=== PATIENT | female | born 1955 | race Caucasian/White ===

== ENCOUNTER 2017-11-28 12:59 | Emergency (ER) | payer MEDICAID ==
[~2017-11-28] VITALS: Ht 165.1 cm; Wt 65.8 kg
[~2017-11-28 12:59] MED LIST: ALPRAZOLAM1 MG ORAL; BISACODYL5 MG ORAL; CATAPRES0.1 MG ORAL; CITALOPRAM HBR40 M1 ORAL; COLCRYS0.6 M1 PO; DOCUSATE SODIU100 MG ORAL; FUROSEMIDE20 M1 ORAL; MINERAL OIL25 ML PO; MORPHINE SULFAT30 M4 PO; NEXIUM40 MG ORAL; NITROGLYCERIN0.4 MG SL; NORVASC5 MG ORAL
[2017-11-28] MEDS ORDERED: Sodium Chloride 500ML 500 ML IV ONE (13:49)
--- NOTE | 2017-11-28 13:51 | Emergency Room Report ---
History of Present Illness General Chief Complaint: Abdominal Pain Source: Medical Record Present Illness HPI Patient is a 62-year-old female who presented after increased right upper abdominal pain. Patient prior history of gallbladder disease and had prior cholecystectomy. She reports having prior stent placement. She reports having chronic pain secondary to Mediterranean fever. She denies any vomiting or diarrhea. She was noted to have some increased abdominal distention. The patient states she chronically takes pain medications which include oral morphine. Allergies: Coded Allergies: DIPHENHYDRAMINE (Verified Allergy, Severe, 05/19/15) GENERAL STIFFNESS Patient History Past Medical History: see triage record Reviewed Nursing Documentation: PMH: Agreed; PSxH: Agreed Nursing Documentation-PMH Hx Cardiac Problems: No Hx Hypertension: Yes Hx Cancer: No Hx Gastrointestinal Problems: Yes Hx Neurological Problems: No Review of Systems All Other Systems: negative except mentioned in HPI Physical Exam Vital Signs Date Time Temp Pulse Resp B/P (MAP) Pulse Ox O2 Delivery O2 Flow Rate FiO2 11/28/17 12:59 98.0 80 16 110/80 98 Room Air 98.1 Sp02 EP Interpretation: reviewed, normal General Appearance: no apparent distress, alert, GCS 15, thin, Chronically Ill Head: atraumatic ENT: normal ENT inspection, hearing grossly normal, normal voice Neck: normal inspection, full range of motion, supple, no bony tend Respiratory: normal inspection, lungs clear, normal breath sounds, no respiratory distress, no retraction, no wheezing Cardiovascular #1: regular rate, rhythm, no edema Gastrointestinal: normal inspection, normal bowel sounds, non tender, soft, no guarding, no hernia Genitourinary: no CVA tenderness Musculoskeletal: normal inspection, back normal, normal range of motion Neurologic: normal inspection, alert, oriented x3, responsive, retail performance specialist III-XII nml as tested, speech normal Psychiatric: normal inspection, judgement/insight normal, mood/affect normal, depressed affect Skin: normal inspection, normal color, no rash Medical Decision Making Diagnostic Impression: Primary Impression: Biliary stent migration Additional Impression: FMF (familial Mediterranean fever) ER Course Patient presented for abdominal pain. Differential diagnoses included ischemic bowel, appendicitis, perforated viscus, abdominal aortic aneurysm, inferior myocardial infarction, viral gastroenteritis. Because of complexity of patient' s case laboratory testing and imaging studies were ordered.The CT abdomen pelvis read by radiology showed slight malposition of biliary stent. The patient laboratory testing showed elevated alkaline phosphatase consistent with patient's abnormal biliary stent. There is no evidence of intrahepatic duct dilation on CT. The see CT report for complete details. Patient was discussed with Dr. Neumann who agreed to accept patient in transfer to [facility] due to capitated facility The patient was given pain medications with some improvement in her symptoms. Labs Test 11/28/17 14:09 11/28/17 14:26 Urine Color Pale yellow Urine Appearance Slightly cloudy Urine pH 7 (4.5-8.0) Urine Specific [place] 1.005 (1.005-1.035) Urine Protein Negative (NEGATIVE) Urine Glucose (UA) Negative (NEGATIVE) Urine Ketones Negative (NEGATIVE) Urine Occult Blood Negative (NEGATIVE) Urine Nitrite Negative (NEGATIVE) Urine Bilirubin Negative (NEGATIVE) Urine Urobilinogen Normal MG/DL (0.0-1.0) Urine Leukocyte Esterase 1+ (NEGATIVE) Urine RBC 0-2 /HPF (0 - 2) Urine WBC 0-2 /HPF (0 - 2) Urine Squamous Epithelial Cells Few /LPF (NONE/OCC) Urine Bacteria Few /HPF (NONE) White Blood Count 6.3 K/UL (4.8-10.8) Red Blood Count 4.54 M/UL (4.20-5.40) Hemoglobin 13.1 G/DL (12.0-16.0) Hematocrit 40.0 % (37.0-47.0) Mean Corpuscular Volume 88 FL (80-99) Mean Corpuscular Hemoglobin 28.9 PG (27.0-31.0) Mean Corpuscular Hemoglobin Concent 32.7 G/DL (32.0-36.0) Red Cell Distribution Width 15.0 % (11.6-14.8) Platelet Count 105 K/UL (150-450) Mean Platelet Volume 8.4 FL (6.5-10.1) Neutrophils (%) (Auto) 64.9 % (45.0-75.0) Lymphocytes (%) (Auto) 25.2 % (20.0-45.0) Monocytes (%) (Auto) 8.1 % (1.0-10.0) Eosinophils (%) (Auto) 1.0 % (0.0-3.0) Basophils (%) (Auto) 0.7 % (0.0-2.0) Prothrombin Time 11.5 SEC (9.30-11.50) Prothromb Time International Ratio 1.1 (0.9-1.1) Activated Partial Thromboplast Time 29 SEC (23-33) Sodium Level 137 MMOL/L (136-145) Potassium Level 4.3 MMOL/L (3.5-5.1) Chloride Level 101 MMOL/L (98-107) Carbon Dioxide Level 28 MMOL/L (21-32) Anion Gap 8 mmol/L (5-15) Blood Urea Nitrogen 19 mg/dL (7-18) Creatinine 0.9 MG/DL (0.55-1.30) Estimat Glomerular Filtration Rate > 60 mL/min (>60) Glucose Level 93 MG/DL (74-106) Calcium Level 9.0 MG/DL (8.5-10.1) Total Bilirubin 0.7 MG/DL (0.2-1.0) Aspartate Amino Transf (AST/SGOT) 56 U/L (15-37) Alanine Aminotransferase (ALT/SGPT) 35 U/L (12-78) Alkaline Phosphatase 264 U/L (46-116) Troponin I 0.000 ng/mL (0.000-0.056) Total Protein 7.7 G/DL (6.4-8.2) Albumin 3.0 G/DL (3.4-5.0) Globulin 4.7 g/dL Albumin/Globulin Ratio 0.6 (1.0-2.7) Lipase 135 U/L (73-393) Last Vital Signs Date Time Temp Pulse Resp B/P (MAP) Pulse Ox O2 Delivery O2 Flow Rate FiO2 11/28/17 12:59 98.0 80 16 110/80 98 Room Air 98.1 Status: improved Disposition: XFER [facility] HOSP Condition: Serious Enrique Boyd MD Nov 28, 2017 13:51
[2017-11-28] MEDS ORDERED: Isovue-300 100ml vial INJ PRN (14:00)
[2017-11-28] MEDS ORDERED: Morphine Sulfate 10mg/ml Inj IVP ONE ×2 (14:00→18:30)
[2017-11-28 14:20] VITALS: BP 125/70
[2017-11-28 14:23] LABS: BILIRUBIN, URINE NEGATIVE (NEGATIVE); COLOR,URINE PALE YELLOW; GLUCOSE, URINE (UA) NEGATIVE (NEGATIVE); KETONES,URINE NEGATIVE (NEGATIVE); LEUKOCYTE ESTERASE ,URINE 1+ (NEGATIVE); NITRITE,URINE NEGATIVE (NEGATIVE); PH,URINE 7 (4.5-8.0); PROTEIN,URINE NEGATIVE (NEGATIVE); UROBILINOGEN,URINE NORMAL MG/DL (0.0-1.0)
[2017-11-28 14:25] LABS: APPEARANCE,URINE SLIGHTLY CLOUDY
[2017-11-28 14:45] LABS: BASOPHILS % (AUTO) 0.7 % (0.0-2.0); HEMOGLOBIN 13.1 G/DL (12.0-16.0); LYMPHOCYTES % (AUTO) 25.2 % (20.0-45.0); MEAN CORPUSCULAR VOLUME 88 FL (80-99); MONOCYTES % (AUTO) 8.1 % (1.0-10.0); NEUTROPHILS % (AUTO) 64.9 % (45.0-75.0); PLATELET COUNT 105 K/UL (150-450); RED BLOOD COUNT 4.54 M/UL (4.20-5.40); WHITE BLOOD COUNT 6.3 K/UL (4.8-10.8)
[2017-11-28 14:56] LABS: ANION GAP 8 mmol/L (5-15); BLOOD UREA NITROGEN 19 mg/dL (7-18); CARBON DIOXIDE 28 MMOL/L (21-32); CHLORIDE 101 MMOL/L (98-107); CREATININE 0.9 MG/DL (0.55-1.30); POTASSIUM 4.3 MMOL/L (3.5-5.1); SODIUM 137 MMOL/L (136-145)
[2017-11-28 14:59] LABS: INR 1.1 (0.9-1.1)
[2017-11-28 15:00] LABS: ALANINE AMINOTRANSFERASE 35 U/L (12-78); ALBUMIN/GLOBULIN RATIO 0.6 (1.0-2.7); ALKALINE PHOSPHATASE 264 U/L (46-116); ASPARTATE AMINO TRANSFERASE 56 U/L (15-37); BILIRUBIN,TOTAL 0.7 MG/DL (0.2-1.0)
--- NOTE | 2017-11-28 16:13 | Diagnostic Imaging Report ---
Clinical Indication: Right upper Abdominal pain Technique: No oral contrast utilized, per emergency room physician request IV administration nonionic contrast. Venous phase spiral acquisition obtained through the abdomen and pelvis. Multiplanar reconstructions were generated. Total dose length product 610.89 mGycm. CTDIvol(s) 11.66 mGy. Dose reduction achieved using automated exposure control Comparison: none Findings: There is a metal endobiliary stent, which is positioned in the distal most common bile duct and the majority of which protrudes into the duodenal lumen. There is resultant pneumobilia. No evidence of pancreatic head mass noted. The the descending duodenum is distended, filled with fluid and gas. This tapers to normal caliber at the fourth portion of the duodenum is at the level of the ligament of Treitz. No definite obstructing lesion is evident, and there are no findings to suggest nutcracker phenomenon. The gallbladder is surgically absent. No significant intrahepatic biliary ductal dilatation. The liver demonstrates a subcentimeter low-attenuation lesion in segment 8 which is too small to characterize. No other focal liver abnormality demonstrated. The spleen is enlarged, measuring 18 cm long axis dimension. It demonstrates multiple subcentimeter low-attenuation lesions the pancreas is unremarkable. The portal vein and splenic vein are patent. The adrenals are unremarkable. The kidneys demonstrate markedly lobulated contours bilaterally, with some atrophy. There is mild bilateral hydronephrosis, but the ureters are normal in caliber. The kidneys demonstrate multiple cortical cysts as well as multiple subcentimeter low-attenuation lesions which are too small to characterize. No retroperitoneal or mesenteric mass or adenopathy. No pelvic mass or adenopathy. There is a right hip arthroplasty prosthesis, streak artifact from which may obscure pathology in the pelvis. The bladder is somewhat distended. Lack of enteric contrast limits assessment of the GI tract. There is a small amount of free pelvic fluid. There is also a small amount of free fluid in the right pericecal region and surrounding the tip of the liver. No evidence of diverticulosis or diverticulitis. The appendix is normal. No small bowel distention. No free intraperitoneal gas. The distal esophagus is unremarkable. The stomach demonstrates equivocal mild wall thickening of the gastric antrum. There are bilateral breast implants incidentally noted. The heart is enlarged. There is a pericardial effusion, predominantly posteriorly, which measures up to 2.2 cm in thickness. The included lung bases demonstrate interstitial septal thickening and venous congestion as well as posterior groundglass opacity. A few bullae are seen at the right lung base. Impression: Splenomegaly Multiple low-attenuation splenic lesions. Differential considerations include multiple small cysts, extra medullary hematopoiesis, multiple splenic abscesses, splenic tuberculosis or histoplasmosis, multifocal splenic lymphoma Metallic endobiliary stent, suboptimally positioned, most of the stent protruding into the duodenal lumen with a smaller portion within the distal common bile duct. Pneumobilia, presumably related to the above Distention of the duodenum. Of uncertain significance, as there is no definite downstream obstructive lesion demonstrated. Possibly functional, possibly related to the stent protrusion into the lumen Surgically absent gallbladder Equivocal gastric antral wall thickening, probably an artifact of incomplete distention but could represent gastritis changes Trace ascites fluid, etiology uncertain Subcentimeter low-attenuation right lobe liver lesion, too small to characterize, most likely benign simple cyst or bile hamartoma Cardiomegaly Pericardial effusion posteriorly Pulmonary basilar interstitial septal thickening and venous congestion and groundglass opacity, likely due to pulmonary edema. As there are a few bullae at the right lung base, findings may also in part reflect chronic interstitial fibrotic changes Bilateral lobulated kidneys, likely reflecting chronic insults. Bilateral borderline hydronephrosis, without definite obstructive lesion, could be on the basis of mild congenital ureteropelvic junction obstruction Bilateral renal cysts. Bilateral subcentimeter low-attenuation renal lesions, too small to characterize, most likely benign simple cysts. No further follow-up necessary Other findings as noted, including bilateral breast implants, right hip prosthesis The CT scanner at [facility] is accredited by the [employer] and the scans are performed using protocols designed to limit radiation exposure to as low as reasonably achievable to attain images of sufficient resolution adequate for diagnostic evaluation.
[2017-11-28 21:04] VITALS: BP 125/67
[2017-11-28 21:24] VITALS: BP 117/65
--- NOTE | 2017-11-30 12:43 | Cardiology Report ---
APPROVED REPORT EKG Measurement Heart [id number] DC [id number] [id number] Normal sinus rhythm Normal ECG
== END 2017-11-28 21:28 | disposition short-term general hospital (02) ==
LOC: EDBD 12:59 → EMR 14:01
DX: T85.520D Displacement of bile duct prosthesis, subsequent encounter (principal); K83.8 Other specified diseases of biliary tract; Y84.8 Other medical procedures as the cause of abnormal reaction of the patient, or of later complication, without mention of misadventure at the time of the procedure; Y92.238 Other place in hospital as the place of occurrence of the external cause; M04.1 Periodic fever syndromes; I10 Essential (primary) hypertension
CPT/HCPCS: 36415; 74177; 80053; 81003; 83690; 84484; 85025; 85610; 85730; 93005; 96374; 96375; 96376; 99284; J2270; J2405; J7040; Q9967

== ENCOUNTER 2018-11-16 17:40 | Inpatient (IN) | payer MEDICAID ==
[~2018-11-16] VITALS: Ht 157.5 cm; Wt 65.8 kg
[2018-11-16 17:50] VITALS: BP 98/46
--- NOTE | 2018-11-16 17:50 | NUR ---
ED Nurse Note: Patient brought in to ER by ambulance from [facility] due to abdominal pain 09/23 and general weakness since 0700 this morning. pt aao x4 but drowsy. per pt, she is ambulatory but she cannot ambulate due to weakness at this moment. calm and cooperative. pt is in gown and on security monitor. saturating at 72% room air. pt is on 4L/min via NC and O2 sat went up to 98%.
[2018-11-16] MEDS ORDERED: Isovue-300 100ml vial INJ PRN (18:00)
[2018-11-16] MEDS ORDERED: Morphine Sulfate 4mg/ml Inj (IV USE ONLY) IVP ONE (18:00)
[2018-11-16] MEDS ORDERED: Dexamethasone 4mg/ml vial IVP ONE (18:00)
--- NOTE | 2018-11-16 18:00 | Emergency Room Report ---
History of Present Illness General Chief Complaint: General Complaint Source: Patient, EMS Present Illness HPI 63-year-old female history of COPD by secondhand smoking, history of Mediterranean fever presents with chest pain, shortness of breath that started 1 day prior to arrival patient denies any aggravating alleviating factors she feels a tightness, severity moderate and difficulty breathing, no nausea no vomiting, she also endorses chronic pain from the mentoring fever achy in nature , severity is moderate, no aggravating or alleviating factors, pain onset has been chronic. Patient presents for evaluation Allergies: Coded Allergies: DIPHENHYDRAMINE (Verified Allergy, Severe, 05/19/15) GENERAL STIFFNESS MORPHINE (Verified Allergy, Unknown, Rash, 11/16/18) Patient History Past Medical History: see triage record Now: No Reviewed Nursing Documentation: PMH: Agreed; PSxH: Agreed Nursing Documentation-PMH Hx Cardiac Problems: No Hx Hypertension: Yes Hx COPD: Yes Hx Cancer: No Hx Gastrointestinal Problems: Yes Hx Neurological Problems: No Review of Systems All Other Systems: negative except mentioned in HPI Physical Exam Vital Signs Date Time Temp Pulse Resp B/P (MAP) Pulse Ox O2 Delivery O2 Flow Rate FiO2 11/16/18 17:37 99.3 98 16 80/40 (53) 90 Room Air Sp02 EP Interpretation: reviewed, normal General Appearance: well appearing, no apparent distress, alert Head: normocephalic, atraumatic Eyes: bilateral eye PERRL, bilateral eye EOMI ENT: uvula midline, moist mucus membranes Neck: supple, thyroid normal, supple/symm/no masses Respiratory: no retraction, no accessory muscle use, wheezing - Moderate wheezing Cardiovascular #1: normal peripheral pulses, regular rate, rhythm, no edema, no gallop, no murmur Gastrointestinal: soft, no guarding, no rebound, tenderness - diffuse tenderness, mild Musculoskeletal: normal inspection Neurologic: alert, oriented x3 Psychiatric: mood/affect normal Skin: no rash, warm/dry Medical Decision Making Diagnostic Impression: Primary Impression: FMF (familial Mediterranean fever) Additional Impressions: COPD with exacerbation Chest pain Qualified Codes: R07.9 - Chest pain, unspecified ER Course Patient presents with diffuse body aches, dyspnea, chest pain and abdominal pain , concern for copd exacerbation, colitis, viral syndrome, exacerbation of familial Mediterranean fever. Patient improved with duonebs, pain control with opioids. CXR: No acute cardiopulmonary processes Patient will be admitted for copd exacerbation and continued shortness of breath. CT abdomen negative. Cefepime 2g started Patient dispo to Dr. Aman gupta accepted 8:37pm Laboratory Tests Test 11/16/18 17:50 11/16/18 19:15 11/16/18 19:20 White Blood Count 15.9 K/UL (4.8-10.8) H Red Blood Count 4.57 M/UL (4.20-5.40) Hemoglobin 14.3 G/DL (12.0-16.0) Hematocrit 41.4 % (37.0-47.0) Mean Corpuscular Volume 91 FL (80-99) Mean Corpuscular Hemoglobin 31.3 PG (27.0-31.0) H Mean Corpuscular Hemoglobin Concent 34.6 G/DL (32.0-36.0) Red Cell Distribution Width 15.1 % (11.6-14.8) H Platelet Count 115 K/UL (150-450) L Mean Platelet Volume 5.9 FL (6.5-10.1) L Neutrophils (%) (Auto) % (45.0-75.0) Lymphocytes (%) (Auto) % (20.0-45.0) Monocytes (%) (Auto) % (1.0-10.0) Eosinophils (%) (Auto) % (0.0-3.0) Basophils (%) (Auto) % (0.0-2.0) Prothrombin Time 10.7 SEC (9.30-11.50) Prothrombin Time INR 1.0 (0.9-1.1) PTT 29 SEC (23-33) Sodium Level 134 MMOL/L (136-145) L Potassium Level 4.7 MMOL/L (3.5-5.1) Chloride Level 95 MMOL/L (98-107) L Carbon Dioxide Level 30 MMOL/L (21-32) Anion Gap 9 mmol/L (5-15) Blood Urea Nitrogen 25 mg/dL (7-18) H Creatinine 1.5 MG/DL (0.55-1.30) H Estimate Glomerular Filtration Rate 35.2 mL/min (>60) Glucose Level 163 MG/DL (74-106) H Lactic Acid Level 2.70 mmol/L (0.4-2.0) H Pending Calcium Level 9.1 MG/DL (8.5-10.1) Phosphorus Level 3.9 MG/DL (2.5-4.9) Magnesium Level 1.9 MG/DL (1.8-2.4) Total Bilirubin 0.9 MG/DL (0.2-1.0) Aspartate Amino Transferase (AST) 28 U/L (15-37) Alanine Aminotransferase (ALT) 38 U/L (12-78) Alkaline Phosphatase 94 U/L (46-116) Total Creatine Kinase 74 U/L (26-308) Creatine Kinase MB 1.5 NG/ML (0.0-3.6) Creatine Kinase MB Relative Index 2.0 Troponin I 0.041 ng/mL (0.000-0.056) Pro-B-Type Natriuretic Peptide 1724 pg/mL (0-125) H Total Protein 6.6 G/DL (6.4-8.2) Albumin 3.1 G/DL (3.4-5.0) L Globulin 3.5 g/dL Albumin/Globulin Ratio 0.9 (1.0-2.7) L Lipase 116 U/L (73-393) Urine Color Pale yellow Urine Appearance Clear Urine pH 6.5 (4.5-8.0) Urine Specific [place] 1.005 (1.005-1.035) Urine Protein Negative (NEGATIVE) Urine Glucose (UA) Negative (NEGATIVE) Urine Ketones Negative (NEGATIVE) Urine Blood Negative (NEGATIVE) Urine Nitrite Negative (NEGATIVE) Urine Bilirubin Negative (NEGATIVE) Urine Urobilinogen Normal MG/DL (0.0-1.0) Urine Leukocyte Esterase 2+ (NEGATIVE) H Urine RBC 0-2 /HPF (0 - 2) Urine WBC 10-15 /HPF (0 - 2) H Urine Squamous Epithelial Cells Few /LPF (NONE/OCC) Urine Bacteria Few /HPF (NONE) EKG Diagnostic Results EKG Time: 17:45 EP Interpretation: sinus tachycardia, rate 105, qtc 420, no acute st elev, left axis dev Rate: tachycardiac Rhythm: other - sinus tachycardia ST Segments: no acute changes Rhythm Strip Diag. Results Rhythm Strip Time: 19:26 EP Interpretation: yes Rate: 99 Rhythm: NSR, no PVC's, no ectopy Chest X-Ray Diagnostic Results Chest X-Ray Diagnostic Results : Chest X-Ray Ordered: Yes # of Views/Limited/Complete: 1 View Indication: Shortness of Breath EP Interpretation: Yes Interpretation: no consolidation, no effusion, no pneumothorax, no acute cardiopulmonary disease Impression: No acute disease Electronically Signed by: Jasvir Ramirez MD CT/MRI/US Diagnostic Results CT/MRI/US Diagnostic Results : Impression Final Report EXAM: CT Abdomen and Pelvis With Intravenous Contrast CLINICAL HISTORY: ABD PAIN TECHNIQUE: Axial computed tomography images of the abdomen and pelvis with intravenous contrast. CTDI is 15.33 mGy and DLP is 776 mGy-cm. One or more of the following dose reduction techniques were used: automated exposure control, adjustment of the mA and/or kV according to patient size, use of iterative reconstruction technique. COMPARISON: 11/28/17 CT abd pel with FINDINGS: Lung bases: Unremarkable. No mass. No consolidation. Heart: Bibasilar atelectatic changes. Small pericardial effusion measuring up to 15 mm in the dependent portion. ABDOMEN: Liver: Unremarkable. No mass. Gallbladder and bile ducts: Cholecystectomy. Interval absence of the previously evident common bile duct stent. Common duct measures 7 mm on this examination. No intrahepatic biliary dilation. Mild residual left pneumobilia. Pancreas: Unremarkable. No mass. No ductal dilation. Spleen: Splenomegaly with the spleen measuring 17.6 cm in craniocaudal extent. This is similar to prior. Adrenals: Unremarkable. No mass. Kidneys and ureters: Bilateral renal cortical scarring, similar to prior. No calcified urinary tract stones identified. No hydronephrosis. Stomach and bowel: Patulous second portion duodenum persists. There are a few nonspecific fluid-filled small bowel loops in the right lower quadrant without definite findings of obstruction. No mucosal thickening. PELVIS: Appendix: No findings to suggest acute appendicitis. Bladder: Unremarkable. No mass. Reproductive: Unremarkable as visualized. ABDOMEN and PELVIS: Intraperitoneal space: Trace ascites. No free air. Bones/joints: Right hip arthroplasty is redemonstrated. Streak artifact from right hip arthroplasty degrades detailed assessment of the pelvis. No acute fracture. No dislocation. Soft tissues: Bilateral breast prostheses. Umbilical piercing. Vasculature: Unremarkable. No abdominal aortic aneurysm. Lymph nodes: Unremarkable. No enlarged lymph nodes. IMPRESSION: Patulous loops of small bowel could represent areas of ileus. No definite confines of bowel obstruction.. Otherwise multiple additional findings in the abdomen and pelvis as described. No specific explanation for abdominal pain is identified. Radiologist: David Stewart MD Electronically Signed: 11/16/18 20:33 Study ready at 20:18 and initial results transmitted at 20:33 Last Vital Signs Date Time Temp Pulse Resp B/P (MAP) Pulse Ox O2 Delivery O2 Flow Rate FiO2 11/16/18 17:37 99.3 98 16 80/40 (53) 90 Room Air Disposition: XFER [facility] - Accepted by Dr. Newton at [facility] Condition: Stable Jasvir Ramirez MD Nov 16, 2018 18:00
--- NOTE | 2018-11-16 18:09 | NUR ---
ED Nurse Note: Medication Morphine was drawn in front of patient and pt reported that she is allergic to Morphine. SAGRARIOD made aware.
--- NOTE | 2018-11-16 18:11 | NUR ---
ED Nurse Note: 4mg of Morphine wasted per protocol and witnessed by ALEJO Esteban.
[2018-11-16] MEDS ORDERED: Hydromorphone 0.5mg/0.5ml inj IVP ONE ×3 (18:15→21:00)
[2018-11-16 18:22] LABS: HEMATOCRIT 41.4 % (37.0-47.0); HEMOGLOBIN 14.3 G/DL (12.0-16.0); MEAN CORPUSCULAR VOLUME 91 FL (80-99); PLATELET COUNT 115 K/UL (150-450); RED BLOOD COUNT 4.57 M/UL (4.20-5.40); RED CELL DISTRIBUTION WIDTH 15.1 % (11.6-14.8); WHITE BLOOD COUNT 15.9 K/UL (4.8-10.8)
[2018-11-16] MEDS: Ipratropium 0.02% Inh Soln 2.5ml UD HHN SCH ×3 (18:23→18:35)
[2018-11-16] MEDS: Albuterol ud Inhalation HHN SCH ×3 (18:23→18:35)
--- NOTE | 2018-11-16 19:04 | NUR ---
HAND-OFF: Report given to ALEJO Katz. Urine sample will be collected and CT has not come yet.
[2018-11-16 19:07] LABS: ANION GAP 9 mmol/L (5-15); BLOOD UREA NITROGEN 25 mg/dL (7-18); CALCIUM 9.1 MG/DL (8.5-10.1); CARBON DIOXIDE 30 MMOL/L (21-32); CHLORIDE 95 MMOL/L (98-107); CREATININE 1.5 MG/DL (0.55-1.30); POTASSIUM 4.7 MMOL/L (3.5-5.1); SODIUM 134 MMOL/L (136-145)
--- NOTE | 2018-11-16 19:08 | NUR ---
ED Nurse Note: received report from Sally ESPINOSA RN . pt VSS. currently receiving breathing Tx.
[2018-11-16 19:21] LABS: ALANINE AMINOTRANSFERASE 38 U/L (12-78); ALBUMIN 3.1 G/DL (3.4-5.0); ALBUMIN/GLOBULIN RATIO 0.9 (1.0-2.7); ALKALINE PHOSPHATASE 94 U/L (46-116); ASPARTATE AMINO TRANSFERASE 28 U/L (15-37); BILIRUBIN,TOTAL 0.9 MG/DL (0.2-1.0); CKMB 1.5 NG/ML (0.0-3.6); CREATINE KINASE 74 U/L (26-308); PHOSPHORUS 3.9 MG/DL (2.5-4.9)
[2018-11-16 19:35] LABS: APPEARANCE,URINE CLEAR; BILIRUBIN, URINE NEGATIVE (NEGATIVE); COLOR,URINE PALE YELLOW; GLUCOSE, URINE (UA) NEGATIVE (NEGATIVE); KETONES,URINE NEGATIVE (NEGATIVE); LEUKOCYTE ESTERASE ,URINE 2+ (NEGATIVE); NITRITE,URINE NEGATIVE (NEGATIVE); PH,URINE 6.5 (4.5-8.0); PROTEIN,URINE NEGATIVE (NEGATIVE); UROBILINOGEN,URINE NORMAL MG/DL (0.0-1.0)
[2018-11-16 19:50] VITALS: BP 100/50
[2018-11-16] MEDS ORDERED: Cefepime HCl 2 GM in D5W 55 ML IVPB ONE (20:30)
[2018-11-16] MEDS ORDERED: Cefepime 2gm ONE (20:30)
--- NOTE | 2018-11-16 20:34 | Diagnostic Imaging Report ---
EXAM: CT Abdomen and Pelvis With Intravenous Contrast CLINICAL HISTORY: ABD PAIN TECHNIQUE: Axial computed tomography images of the abdomen and pelvis with intravenous contrast. CTDI is 15.33 mGy and DLP is 776 mGy-cm. One or more of the following dose reduction techniques were used: automated exposure control, adjustment of the mA and/or kV according to patient size, use of iterative reconstruction technique. COMPARISON: 11/28/17 CT abd pel with FINDINGS: Lung bases: Unremarkable. No mass. No consolidation. Heart: Bibasilar atelectatic changes. Small pericardial effusion measuring up to 15 mm in the dependent portion. ABDOMEN: Liver: Unremarkable. No mass. Gallbladder and bile ducts: Cholecystectomy. Interval absence of the previously evident common bile duct stent. Common duct measures 7 mm on this examination. No intrahepatic biliary dilation. Mild residual left pneumobilia. Pancreas: Unremarkable. No mass. No ductal dilation. Spleen: Splenomegaly with the spleen measuring 17.6 cm in craniocaudal extent. This is similar to prior. Adrenals: Unremarkable. No mass. Kidneys and ureters: Bilateral renal cortical scarring, similar to prior. No calcified urinary tract stones identified. No hydronephrosis. Stomach and bowel: Patulous second portion duodenum persists. There are a few nonspecific fluid-filled small bowel loops in the right lower quadrant without definite findings of obstruction. No mucosal thickening. PELVIS: Appendix: No findings to suggest acute appendicitis. Bladder: Unremarkable. No mass. Reproductive: Unremarkable as visualized. ABDOMEN and PELVIS: Intraperitoneal space: Trace ascites. No free air. Bones/joints: Right hip arthroplasty is redemonstrated. Streak artifact from right hip arthroplasty degrades detailed assessment of the pelvis. No acute fracture. No dislocation. Soft tissues: Bilateral breast prostheses. Umbilical piercing. Vasculature: Unremarkable. No abdominal aortic aneurysm. Lymph nodes: Unremarkable. No enlarged lymph nodes. IMPRESSION: Patulous loops of small bowel could represent areas of ileus. No definite confines of bowel obstruction.. Otherwise multiple additional findings in the abdomen and pelvis as described. No specific explanation for abdominal pain is identified.
[2018-11-16] MEDS ORDERED: HYDROmorphone 1mg/ml Carpuject IVP ONE (21:00)
--- NOTE | 2018-11-16 21:00 | NUR ---
ED Nurse Note: pt in bed resting. daughter by bed side. BP 96/56, p 96, r 18 . pain 2/10 to ABD
[2018-11-16 21:39] VITALS: BP 96/56
--- NOTE | 2018-11-16 21:47 | NUR ---
Face sheet, MD dictation and CT report faxed to [phone] as requested by May at [facility].
--- NOTE | 2018-11-16 23:01 | NUR ---
ED Nurse Note: pt currently in bed with eyes closed. VSS
[2018-11-16 23:31] VITALS: BP 98/60
--- NOTE | 2018-11-16 23:40 | NUR ---
Note kerridavion in EDM - 11/16/18 at 2343 by GILBERT ER DISCHARGE NOTE: Patient is cleared to be discharged per ERMD, pt is aox4, on room air, with stable vital signs. pt was given dc and prescription instructions, pt was able to verbalize understanding, pt id band and iv site removed without complications. pt is able to ambulate with steady gait. pt took all belongings.
[2018-11-17] VITALS (7 sets, daily range): BP systolic 110–140; BP diastolic 56–74
[2018-11-17] MEDS ORDERED: Nitroglycerin Subl 0.4mg tab SL PRN
--- NOTE | 2018-11-17 00:50 | NUR ---
ED Nurse Note: pt brought up to room 238-1 accompanied by 2 RN via batool. VSS. all belongings signed and remained with pt. Report given to Aleksandra RN
--- NOTE | 2018-11-17 01:00 | NUR ---
NURSE NOTES: Pt received from ALEJO Berry alert and oriented x4 with no acute s/s of distress noted. On 3L NC, saturating at 95%. VSS stable - 111/56, HR 92, 97.0 F, 20 RR. Hospice Director on - SR (79). IV site asymptomatic and patent on L fa 20g, running to NS at 75 as ordered. Belongings all with patient upon transfer - bra, leggings, shirt, sandals, purse, earrings, 2 rings, 1 watch, 2 necklaces. Bed in lowest position, bed alarm on, call light and belongings within reach. Per pt, she usually ambulates with a walker and uses O2 at home. Skin intact - noted bruise on R thigh and R arm.
[2018-11-17] MEDS: Albuterol/Ipratropium 3ml neb HHN SCH ×5 (01:09→23:19)
--- NOTE | 2018-11-17 01:10 | NUR ---
NURSE NOTES: Pt complaining of 8/10 stabbing intermittent pain in the right lower abdominal quadrant. Pr refused Tylenol PRN for pain, messaged Dr. Bonilla for orders.
--- NOTE | 2018-11-17 03:20 | NUR ---
NURSE NOTES: Received order for Dilaudid 0.5 mg IVP for pain q6h from Dr. Bonilla. Messaged regarding clarification for Lovenox parameters d/t Plts of 115. Will carry out orders.
[2018-11-17] MEDS: HYDROmorphone 1mg/ml Carpuject IVP PRN ×4 (05:32→21:06)
[2018-11-17] MEDS ORDERED: Solu-MEDROL 40mg Inj IVP SCH (06:00)
[2018-11-17 06:59] LABS: HEMATOCRIT 38.6 % (37.0-47.0); HEMOGLOBIN 13.1 G/DL (12.0-16.0); MEAN CORPUSCULAR VOLUME 93 FL (80-99); PLATELET COUNT 94 K/UL (150-450); RED BLOOD COUNT 4.16 M/UL (4.20-5.40); RED CELL DISTRIBUTION WIDTH 16.1 % (11.6-14.8); WHITE BLOOD COUNT 6.2 K/UL (4.8-10.8)
--- NOTE | 2018-11-17 07:10 | NUR ---
NURSE NOTES: Received bedside report from Carlos RN. Pt. in bed, asleep but arousable. No sign of distress. On O2 @ 2LPM via NC. No grimacing noted. IV at left FA #20g. in placed patent/intact running NS at 75cc/hr. Tolerating well. Bed in low position, locked. Call light within reach. Will cont. to monitor.
--- NOTE | 2018-11-17 07:10 | NUR ---
HAND-OFF: Report given to ALEJO Jessica. No acute s/s of distress noted.
[2018-11-17 07:22] LABS: ANION GAP 9 mmol/L (5-15); BLOOD UREA NITROGEN 23 mg/dL (7-18); CALCIUM 8.3 MG/DL (8.5-10.1); CARBON DIOXIDE 29 MMOL/L (21-32); CHLORIDE 102 MMOL/L (98-107); CREATININE 1.3 MG/DL (0.55-1.30); POTASSIUM 4.5 MMOL/L (3.5-5.1); SODIUM 140 MMOL/L (136-145)
--- NOTE | 2018-11-17 08:30 | NUR ---
NURSE NOTES: Report given to Chaim Merida RN. Pt. remain stable.
[2018-11-17] MEDS ORDERED: Citalopram Hydrobromide 10mg Tab ORAL SCH (09:00)
[2018-11-17] MEDS: Docusate 100mg cap ORAL SCH ×3 (09:00→21:00)
[2018-11-17] MEDS ORDERED: Enoxaparin 40mg Inj SUBQ SCH (09:00)
[2018-11-17] MEDS ORDERED: Levofloxacin 500mg tab ORAL SCH (09:00)
--- NOTE | 2018-11-17 09:15 | NUR ---
NURSE NOTES: This RN introduced self to and performed bedside assessment for Mrs Ambriz --stable with anxious and talkative affect, aox4. Patient in bed with bed alarm on for safety and bed in lowest, locked position. No edema noted. Call durbin and water in reach. TV on for distraction. Lungs clear bilaterally to auscultation. NSR on tele monitor. Patient stated 8/10 stomach and head pain at this time--refused tylenol, requested dilaudid. patient refused alternative therapies for comfort--currently lying calmly in bed. SUPERVISOR ASSEMBLY STOCK following into room to obtain VS. Addendum: 11/17/18 at 1053 by Hiren Hou RN Veriified patient belongings with patient at time of transfer to . Patient stated all belongings present including pants, shirt, sandals, purse and jewelry that patient was wearing. Re-checked with patient to ensure that patient had all her belongings with her and patient confirmed that all belongings were accounted for.
[2018-11-17] MEDS: Aspirin Baby 81mg ORAL SCH (10:14)
[2018-11-17] MEDS: Cephalexin 500mg cap ORAL SCH ×2 (10:14→20:21)
[2018-11-17] MEDS: Citalopram Hydrobromide 10mg Tab ORAL SCH (10:15)
--- NOTE | 2018-11-17 10:46 | NUR ---
NURSE NOTES: After administering dilaudid per JUN, patient requested to go to bathroom and asked this RN to re-make up the bed. Making bed, found bottle labelled Klonopin of patient's own med. Appeared to be tablets. Chaim RN removed bottle to take to pharmacy to put in patient's med vault. die maker apprentice notified.
--- NOTE | 2018-11-17 13:53 | Consultation ---
History of Present Illness General Date patient seen: Nov 17, 2018 Time patient seen: 13:49 Chief Complaint: General Complaint Present Illness HPI Patient brought in to ER by ambulance from [facility] due to abdominal pain 6/10 and general weakness. She complains of chest pain and wants dilaudid and refused tylenol, CT abdomen negative for acute abdomen. Tropnin negative, telemetry with no arrhythmias. Allergies: Coded Allergies: DIPHENHYDRAMINE (Verified Allergy, Severe, 05/19/15) GENERAL STIFFNESS MORPHINE (Verified Allergy, Unknown, Rash, 11/16/18) Medication History Scheduled Alprazolam* (Xanax*), 1 MG ORAL QHS, (Reported) Amlodipine Besylate (Norvasc), 5 MG ORAL DAILY, (Reported) Bisacodyl* (Dulcolax*), 10 MG ORAL DAILY, (Reported) Citalopram Hydrobromide* (Citalopram Hbr*), 40 MG ORAL DAILY, (Reported) Clonidine Hcl* (Catapres*), 0.1 MG ORAL PRN, (Reported) Colchicine (Colcrys), 0.6 MG PO TID, (Reported) Esomeprazole Magnesium (Nexium), 40 MG ORAL DAILY, (Reported) Furosemide* (Lasix*), 20 MG ORAL PRN, (Reported) Mineral Oil (Mineral Oil), 15 ML PO PRN, (Reported) Morphine Sulfate (Morphine Sulfate), 30 MG PO PRN, (Reported) Nitroglycerin (Nitroglycerin), 0.4 MG SL PRN, (Reported) Patient History Healthcare decision maker Resuscitation status Full Code Advanced Directive on File Review of Systems Constitutional: Reports: no symptoms Eye: Reports: no symptoms ENT: Reports: no symptoms Respiratory: Reports: no symptoms Cardiovascular: Reports: chest pain Gastrointestinal: Reports: abdominal pain, nausea, vomiting Genitourinary: Reports: no symptoms Musculoskeletal: Reports: no symptoms Skin: Reports: no symptoms Psychiatric: Reports: no symptoms Neurological: Reports: no symptoms Endocrine: Reports: no symptoms Hematologic/Lymphatic: Reports: no symptoms Physical Exam General Appearance: no apparent distress, alert Lines, tubes and drains: peripheral HEENT: normocephalic, atraumatic Neck: non-tender, normal alignment Respiratory/Chest: chest wall non-tender, lungs clear Breasts: no masses Cardiovascular/Chest: normal peripheral pulses, normal rate, regular rhythm Abdomen: normal bowel sounds, non tender, soft, no organomegaly, no mass Extremities: normal range of motion, non-tender, normal inspection, no calf tenderness, normal capillary refill, non-pitting Skin Exam: normal pigmentation, warm/dry, cyanotic Neurologic: technology coordinator II-XII grossly normal, no motor/sensory deficits Last 24 Hour Vital Signs Date Time Temp Pulse Resp B/P (MAP) Pulse Ox O2 Delivery O2 Flow Rate FiO2 11/17/18 12:36 97.7 76 20 128/62 (84) 11/17/18 12:00 74 11/17/18 10:14 75 110/57 11/17/18 09:33 75 11/17/18 09:30 97.0 77 20 110/57 (74) 91 11/17/18 08:00 Nasal Cannula 3.0 11/17/18 08:00 97.9 76 20 110/57 (74) 94 11/17/18 08:00 2.0 11/17/18 07:20 96 Nasal Cannula 3.0 11/17/18 07:16 67 16 96 Nasal Cannula 3.0 32 11/17/18 06:26 68 18 98 Nasal Cannula 3.0 32 11/17/18 04:00 72 11/17/18 04:00 97.0 74 18 110/60 (77) 94 11/17/18 04:00 Nasal Cannula 3.0 11/17/18 01:40 3.0 11/17/18 01:19 92 18 98 Nasal Cannula 3.0 32 11/17/18 01:13 97.0 78 20 111/56 (74) 98 11/17/18 01:12 Nasal Cannula 3.0 11/17/18 01:09 82 18 98 Nasal Cannula 3.0 32 11/17/18 01:05 79 11/17/18 00:50 99.6 100 18 99/56 97 Nasal Cannula 4.0 11/16/18 23:31 98.8 98 17 98/60 97 Nasal Cannula 4.0 11/16/18 21:39 98.8 96 18 96/56 96 Nasal Cannula 4.0 11/16/18 19:50 99.0 101 16 100/50 96 Nasal Cannula 4.0 11/16/18 19:10 99 17 99 Nasal Cannula 3.0 32 11/16/18 18:51 99.4 11/16/18 18:31 103 18 100 Nasal Cannula 3.0 32 11/16/18 18:30 103 18 100 Nasal Cannula 3.0 32 11/16/18 18:21 98 16 94 Nasal Cannula 3.0 32 11/16/18 18:19 98 16 94 Room Air 21 11/16/18 17:50 99 16 Nasal Cannula 4.0 99 11/16/18 17:50 99.3 102 16 98/46 98 Nasal Cannula 4.0 11/16/18 17:37 99.3 98 16 80/40 (53) 90 Room Air Intake and Output 11/16/18 11/17/18 19:00 07:00 Intake Total 1000 ml 290 ml Output Total 300 ml Balance 1000 ml -10 ml Intake Oral 0 ml 140 ml IV Total 1000 ml 150 ml Output Urine Total 300 ml Laboratory Tests Test 11/16/18 17:50 11/16/18 19:15 11/16/18 21:20 11/17/18 03:58 White Blood Count 15.9 K/UL (4.8-10.8) H 6.2 K/UL (4.8-10.8) # Red Blood Count 4.57 M/UL (4.20-5.40) 4.16 M/UL (4.20-5.40) L Hemoglobin 14.3 G/DL (12.0-16.0) 13.1 G/DL (12.0-16.0) Hematocrit 41.4 % (37.0-47.0) 38.6 % (37.0-47.0) Mean Corpuscular Volume 91 FL (80-99) 93 FL (80-99) Mean Corpuscular Hemoglobin 31.3 PG (27.0-31.0) H 31.6 PG (27.0-31.0) H Mean Corpuscular Hemoglobin Concent 34.6 G/DL (32.0-36.0) 34.0 G/DL (32.0-36.0) Red Cell Distribution Width 15.1 % (11.6-14.8) H 16.1 % (11.6-14.8) H Platelet Count 115 K/UL (150-450) L 94 K/UL (150-450) L Mean Platelet Volume 5.9 FL (6.5-10.1) L 7.0 FL (6.5-10.1) Neutrophils (%) (Auto) % (45.0-75.0) % (45.0-75.0) Lymphocytes (%) (Auto) % (20.0-45.0) % (20.0-45.0) Monocytes (%) (Auto) % (1.0-10.0) % (1.0-10.0) Eosinophils (%) (Auto) % (0.0-3.0) % (0.0-3.0) Basophils (%) (Auto) % (0.0-2.0) % (0.0-2.0) Prothrombin Time 10.7 SEC (9.30-11.50) Prothromb Time International Ratio 1.0 (0.9-1.1) Activated Partial Thromboplast Time 29 SEC (23-33) Sodium Level 134 MMOL/L (136-145) L 140 MMOL/L (136-145) Potassium Level 4.7 MMOL/L (3.5-5.1) 4.5 MMOL/L (3.5-5.1) Chloride Level 95 MMOL/L (98-107) L 102 MMOL/L (98-107) Carbon Dioxide Level 30 MMOL/L (21-32) 29 MMOL/L (21-32) Anion Gap 9 mmol/L (5-15) 9 mmol/L (5-15) Blood Urea Nitrogen 25 mg/dL (7-18) H 23 mg/dL (7-18) H Creatinine 1.5 MG/DL (0.55-1.30) H 1.3 MG/DL (0.55-1.30) Estimat Glomerular Filtration Rate 35.2 mL/min (>60) 41.5 mL/min (>60) Glucose Level 163 MG/DL (74-106) H 132 MG/DL (74-106) H Lactic Acid Level 2.70 mmol/L (0.4-2.0) H 3.10 mmol/L (0.66-2.22) H Calcium Level 9.1 MG/DL (8.5-10.1) 8.3 MG/DL (8.5-10.1) L Phosphorus Level 3.9 MG/DL (2.5-4.9) Magnesium Level 1.9 MG/DL (1.8-2.4) Total Bilirubin 0.9 MG/DL (0.2-1.0) Aspartate Amino Transf (AST/SGOT) 28 U/L (15-37) Alanine Aminotransferase (ALT/SGPT) 38 U/L (12-78) Alkaline Phosphatase 94 U/L (46-116) Total Creatine Kinase 74 U/L (26-308) Creatine Kinase MB 1.5 NG/ML (0.0-3.6) Creatine Kinase MB Relative Index 2.0 Troponin I 0.041 ng/mL (0.000-0.056) 0.017 ng/mL (0.000-0.056) Pro-B-Type Natriuretic Peptide 1724 pg/mL (0-125) H Total Protein 6.6 G/DL (6.4-8.2) Albumin 3.1 G/DL (3.4-5.0) L Globulin 3.5 g/dL Albumin/Globulin Ratio 0.9 (1.0-2.7) L Lipase 116 U/L (73-393) Urine Color Pale yellow Urine Appearance Clear Urine pH 6.5 (4.5-8.0) Urine Specific [place] 1.005 (1.005-1.035) Urine Protein Negative (NEGATIVE) Urine Glucose (UA) Negative (NEGATIVE) Urine Ketones Negative (NEGATIVE) Urine Blood Negative (NEGATIVE) Urine Nitrite Negative (NEGATIVE) Urine Bilirubin Negative (NEGATIVE) Urine Urobilinogen Normal MG/DL (0.0-1.0) Urine Leukocyte Esterase 2+ (NEGATIVE) H Urine RBC 0-2 /HPF (0 - 2) Urine WBC 10-15 /HPF (0 - 2) H Urine Squamous Epithelial Cells Few /LPF (NONE/OCC) Urine Bacteria Few /HPF (NONE) Differential Total Cells Counted 100 Neutrophils % (Manual) 92 % (45-75) H Lymphocytes % (Manual) 6 % (20-45) L Monocytes % (Manual) 2 % (1-10) Eosinophils % (Manual) 0 % (0-3) Basophils % (Manual) 0 % (0-2) Band Neutrophils 0 % (0-8) Platelet Estimate Decreased L Platelet Morphology Normal Anisocytosis 1+ Microbiology Date/Time Source Procedure Growth Status 11/16/18 19:15 Urine,Clean Catch Urine Culture - Preliminary NO GROWTH Resulted 11/17/18 04:00 Rectum Received Height (Feet): 5 Height (Inches): 2.00 Weight (Pounds): 145 Medications Current Medications Medications (Trade) Dose Ordered Sig/Luther Route PRN Reason Start Time Stop Time Status Last Admin Dose Admin Acetaminophen (Tylenol) 650 mg Q4H PRN ORAL Mild Pain (Pain Scale 1-3) 11/17/18 00:00 12/17/18 00:00 Albuterol/ Ipratropium (Albuterol/ Ipratropium) 3 ml Q6HRT HHN 11/17/18 01:00 11/22/18 00:59 11/17/18 07:16 Amlodipine Besylate (Norvasc) 5 mg DAILY ORAL 11/17/18 09:00 12/17/18 08:59 11/17/18 10:14 Aspirin (ASA) 81 mg DAILY ORAL 11/17/18 09:00 12/17/18 08:59 11/17/18 10:14 Cephalexin (Keflex) 500 mg Q12HR ORAL 11/17/18 09:00 11/24/18 08:59 11/17/18 10:14 Citalopram Hydrobromide (celeXA) 10 mg DAILY ORAL 11/17/18 09:00 12/17/18 08:59 11/17/18 10:15 Colchicine (Colchicine) 0.6 mg TID ORAL 11/17/18 09:00 12/17/18 08:59 11/17/18 10:15 Dextrose (Dextrose 50%) 25 ml Q30M PRN IV Hypoglycemia 11/17/18 00:00 12/17/18 00:00 Dextrose (Dextrose 50%) 50 ml Q30M PRN IV Hypoglycemia 11/17/18 00:00 12/17/18 00:00 Docusate Sodium (Colace) 100 mg EVERY 12 HOURS ORAL 11/17/18 09:00 12/17/18 08:59 Famotidine (Pepcid) 20 mg DAILY ORAL 11/17/18 09:00 12/17/18 08:59 11/17/18 10:14 Hydromorphone HCl (Dilaudid) 0.5 mg EVERY 6 HOURS PRN IVP For Pain 11/17/18 05:15 11/24/18 05:14 11/17/18 10:40 Iopamidol (Isovue-300 100ml) 100 ml NOW PRN INJ Radiology Procedure 11/16/18 18:00 Lorazepam (Ativan) 1 mg Q4H PRN ORAL For Anxiety 11/17/18 00:00 11/24/18 00:00 Nitroglycerin (Ntg) 0.4 mg Q5M PRN SL Prn Chest Pain 11/17/18 00:00 12/17/18 00:00 Prednisone (predniSONE) 10 mg DAILY ORAL 11/17/18 09:00 12/17/18 08:59 11/17/18 10:16 Assessment/Plan Status: stable Assessment/Plan: Assessment: Abdominal pain Chest pain COPD Anxiety. Mediterranean fever. Plan: Serial EKG/Troponin Nitro prn chest pain hold pain medication Respiratory status stable Reviewed CT scan, no pathology PPI BID, Maalox Outpatient stress test Ozzy Barrios MD Nov 17, 2018 13:53
--- NOTE | 2018-11-17 14:33 | NUR ---
NURSE NOTES:Patient requested to speak with fish technologist regarding administration of IV dilaudid stating that she objected to dilution in saline and requested increase in dosage. fish technologist spoke with patient who now agrees to dilution per safe drug administration policies. Patient is requesting anti-anxiety medication. This RN to administer per MAR, hospital policy, orders, and in light of discussion with clean room technician. Addendum: 11/17/18 at 2004 by Hiren Hou RN Patient again requested to speak with fish technologist regarding increase of frequency of dilaudid administration and other medications that patient wanted dr to order including cardiac meds that she stated she couldn't remember the name of but had been taking at home. This RN reviewed med rec home meds with patient to reflect patient's statement of her home meds. fish technologist at bedside with this RN. After clean room technician contacted Dr , meds were updated. At change of shift, patient stated to lilian DHILLON and this RN at bedside that she was still disatisfied that she would not receive the other cardiac meds she usually takes at home as well as requested increased frequency for dilaudid.
--- NOTE | 2018-11-17 14:40 | Pulmonology Progress Note ---
Assessment/Plan Assessment/Plan Pulmonary Consultation HPI Patient is a 63-year-old fwoman with history of COPD, Familial Mediterranean Fever who presents with chest and abdominal pain, shortness of breath, the symptoms started 1 day prior to admission, chest pain described as a tightness, severity moderate and difficulty breathing, no nausea no vomiting, she also endorses chronic pain from the mentoring fever achy in nature, severity is moderate, no aggravating or alleviating factors, pain onset has been chronic. Allergies: DIPHENHYDRAMINE MORPHINE Past Medical History: COPD, Hypertension, Familial Mediterranean Fever All Other Systems: negative except mentioned in HPI Physical Exam Vital Signs Noted Date Time Temp Pulse Resp B/P (MAP) Pulse Ox O2 Delivery O2 Flow Rate FiO2 11/16/18 17:37 99.3 98 16 80/40 (53) 90 Room Air General Appearance: well appearing, no apparent distress, alert Head: normocephalic, atraumatic Eyes: bilateral eye PERRL, bilateral eye EOMI ENT: uvula midline, moist mucus membranes Neck: supple, thyroid normal, supple/symm/no masses Respiratory: no retraction, no accessory muscle use, wheezing - Moderate wheezing Cardiovascular: normal peripheral pulses, regular rate, rhythm, normal HS1/HS2 , no edema, no gallop, no murmur Gastrointestinal: soft, no guarding, no rebound, tenderness - diffuse tenderness, mild Musculoskeletal: normal inspection Neurologic: alert, oriented x3 Impression: Familial Mediterranean fever COPD with exacerbation Chest pain Hypertension Plan Chest pain HHN Prednisone Analgesia [employer] ANALYST meds IV Antibiotics O2 PRN Laboratory Tests Test 11/16/18 17:50 11/16/18 19:15 11/16/18 19:20 White Blood Count 15.9 K/UL (4.8-10.8) H Red Blood Count 4.57 M/UL (4.20-5.40) Hemoglobin 14.3 G/DL (12.0-16.0) Hematocrit 41.4 % (37.0-47.0) Mean Corpuscular Volume 91 FL (80-99) Mean Corpuscular Hemoglobin 31.3 PG (27.0-31.0) H Mean Corpuscular Hemoglobin Concent 34.6 G/DL (32.0-36.0) Red Cell Distribution Width 15.1 % (11.6-14.8) H Platelet Count 115 K/UL (150-450) L Mean Platelet Volume 5.9 FL (6.5-10.1) L Neutrophils (%) (Auto) % (45.0-75.0) Lymphocytes (%) (Auto) % (20.0-45.0) Monocytes (%) (Auto) % (1.0-10.0) Eosinophils (%) (Auto) % (0.0-3.0) Basophils (%) (Auto) % (0.0-2.0) Prothrombin Time 10.7 SEC (9.30-11.50) Prothrombin Time INR 1.0 (0.9-1.1) PTT 29 SEC (23-33) Sodium Level 134 MMOL/L (136-145) L Potassium Level 4.7 MMOL/L (3.5-5.1) Chloride Level 95 MMOL/L (98-107) L Carbon Dioxide Level 30 MMOL/L (21-32) Anion Gap 9 mmol/L (5-15) Blood Urea Nitrogen 25 mg/dL (7-18) H Creatinine 1.5 MG/DL (0.55-1.30) H Estimate Glomerular Filtration Rate 35.2 mL/min (>60) Glucose Level 163 MG/DL (74-106) H Lactic Acid Level 2.70 mmol/L (0.4-2.0) H Pending Calcium Level 9.1 MG/DL (8.5-10.1) Phosphorus Level 3.9 MG/DL (2.5-4.9) Magnesium Level 1.9 MG/DL (1.8-2.4) Total Bilirubin 0.9 MG/DL (0.2-1.0) Aspartate Amino Transferase (AST) 28 U/L (15-37) Alanine Aminotransferase (ALT) 38 U/L (12-78) Alkaline Phosphatase 94 U/L (46-116) Total Creatine Kinase 74 U/L (26-308) Creatine Kinase MB 1.5 NG/ML (0.0-3.6) Creatine Kinase MB Relative Index 2.0 Troponin I 0.041 ng/mL (0.000-0.056) Pro-B-Type Natriuretic Peptide 1724 pg/mL (0-125) H Total Protein 6.6 G/DL (6.4-8.2) Albumin 3.1 G/DL (3.4-5.0) L Globulin 3.5 g/dL Albumin/Globulin Ratio 0.9 (1.0-2.7) L Lipase 116 U/L (73-393) Urine Color Pale yellow Urine Appearance Clear Urine pH 6.5 (4.5-8.0) Urine Specific [place] 1.005 (1.005-1.035) Urine Protein Negative (NEGATIVE) Urine Glucose (UA) Negative (NEGATIVE) Urine Ketones Negative (NEGATIVE) Urine Blood Negative (NEGATIVE) Urine Nitrite Negative (NEGATIVE) Urine Bilirubin Negative (NEGATIVE) Urine Urobilinogen Normal MG/DL (0.0-1.0) Urine Leukocyte Esterase 2+ (NEGATIVE) H Urine RBC 0-2 /HPF (0 - 2) Urine WBC 10-15 /HPF (0 - 2) H Urine Squamous Epithelial Cells Few /LPF (NONE/OCC) Urine Bacteria Few /HPF (NONE) EKG: sinus tachycardia, rate 105, qtc 420, no acute st elev, left axis dev Rate: tachycardiac Rhythm: other - sinus tachycardia ST Segments: no acute changes Chest X-Ray: no consolidation, no effusion, no pneumothorax, no acute cardiopulmonary disease CT : Impression Final Report EXAM: CT Abdomen and Pelvis With Intravenous Contrast FINDINGS: Lung bases: Unremarkable. No mass. No consolidation. Heart: Bibasilar atelectatic changes. Small pericardial effusion measuring up to 15 mm in the dependent portion. ABDOMEN: Liver: Unremarkable. No mass. Gallbladder and bile ducts: Cholecystectomy. Interval absence of the previously evident common bile duct stent. Common duct measures 7 mm on this examination. No intrahepatic biliary dilation. Mild residual left pneumobilia. Pancreas: Unremarkable. No mass. No ductal dilation. Spleen: Splenomegaly with the spleen measuring 17.6 cm in craniocaudal extent. This is similar to prior. Adrenals: Unremarkable. No mass. Kidneys and ureters: Bilateral renal cortical scarring, similar to prior. No calcified urinary tract stones identified. No hydronephrosis. Stomach and bowel: Patulous second portion duodenum persists. There are a few nonspecific fluid-filled small bowel loops in the right lower quadrant without definite findings of obstruction. No mucosal thickening. PELVIS: Appendix: No findings to suggest acute appendicitis. Bladder: Unremarkable. No mass. Reproductive: Unremarkable as visualized. ABDOMEN and PELVIS: Intraperitoneal space: Trace ascites. No free air. Bones/joints: Right hip arthroplasty is redemonstrated. Streak artifact from right hip arthroplasty degrades detailed assessment of the pelvis. No acute fracture. No dislocation. Soft tissues: Bilateral breast prostheses. Umbilical piercing. Vasculature: Unremarkable. No abdominal aortic aneurysm. Lymph nodes: Unremarkable. No enlarged lymph nodes. IMPRESSION: Patulous loops of small bowel could represent areas of ileus. No definite confines of bowel obstruction.. Otherwise multiple additional findings in the abdomen and pelvis as described. No specific explanation for abdominal pain is identified. Subjective ROS Limited/Unobtainable: No Allergies: Coded Allergies: DIPHENHYDRAMINE (Verified Allergy, Severe, 05/19/15) GENERAL STIFFNESS MORPHINE (Verified Allergy, Unknown, Rash, 11/16/18) Objective Last 24 Hour Vital Signs Date Time Temp Pulse Resp B/P (MAP) Pulse Ox O2 Delivery O2 Flow Rate FiO2 11/17/18 14:01 72 18 97 Nasal Cannula 3.0 32 11/17/18 13:49 75 18 95 Nasal Cannula 3.0 32 11/17/18 12:36 97.7 76 20 128/62 (84) 11/17/18 12:00 74 11/17/18 10:14 75 110/57 11/17/18 09:33 75 11/17/18 09:30 97.0 77 20 110/57 (74) 91 11/17/18 09:00 Nasal Cannula 2.0 11/17/18 08:00 Nasal Cannula 3.0 11/17/18 08:00 97.9 76 20 110/57 (74) 94 11/17/18 08:00 2.0 11/17/18 07:20 96 Nasal Cannula 3.0 11/17/18 07:16 67 16 96 Nasal Cannula 3.0 32 11/17/18 06:26 68 18 98 Nasal Cannula 3.0 32 11/17/18 04:00 72 11/17/18 04:00 97.0 74 18 110/60 (77) 94 11/17/18 04:00 Nasal Cannula 3.0 11/17/18 01:40 3.0 11/17/18 01:19 92 18 98 Nasal Cannula 3.0 32 11/17/18 01:13 97.0 78 20 111/56 (74) 98 11/17/18 01:12 Nasal Cannula 3.0 11/17/18 01:09 82 18 98 Nasal Cannula 3.0 32 11/17/18 01:05 79 11/17/18 00:50 99.6 100 18 99/56 97 Nasal Cannula 4.0 11/16/18 23:31 98.8 98 17 98/60 97 Nasal Cannula 4.0 11/16/18 21:39 98.8 96 18 96/56 96 Nasal Cannula 4.0 11/16/18 19:50 99.0 101 16 100/50 96 Nasal Cannula 4.0 11/16/18 19:10 99 17 99 Nasal Cannula 3.0 32 11/16/18 18:51 99.4 11/16/18 18:31 103 18 100 Nasal Cannula 3.0 32 11/16/18 18:30 103 18 100 Nasal Cannula 3.0 32 11/16/18 18:21 98 16 94 Nasal Cannula 3.0 32 11/16/18 18:19 98 16 94 Room Air 21 11/16/18 17:50 99 16 Nasal Cannula 4.0 99 11/16/18 17:50 99.3 102 16 98/46 98 Nasal Cannula 4.0 11/16/18 17:37 99.3 98 16 80/40 (53) 90 Room Air Intake and Output 11/16/18 11/17/18 19:00 07:00 Intake Total 1000 ml 290 ml Output Total 300 ml Balance 1000 ml -10 ml Intake Oral 0 ml 140 ml IV Total 1000 ml 150 ml Output Urine Total 300 ml Microbiology Date/Time Source Procedure Growth Status 11/16/18 19:15 Urine,Clean Catch Urine Culture - Preliminary NO GROWTH Resulted 11/17/18 04:00 Rectum Received Laboratory Tests 11/16/18 17:50: White Blood Count 15.9H, Red Blood Count 4.57, Hemoglobin 14.3, Hematocrit 41.4 , Mean Corpuscular Volume 91, Mean Corpuscular Hemoglobin 31.3H, Mean Corpuscular Hemoglobin Concent 34.6, Red Cell Distribution Width 15.1H, Platelet Count 115L, Mean Platelet Volume 5.9L, Neutrophils (%) (Auto) , Lymphocytes (%) (Auto) , Monocytes (%) (Auto) , Eosinophils (%) (Auto) , Basophils (%) (Auto) , Prothrombin Time 10.7, Prothromb Time International Ratio 1.0, Activated Partial Thromboplast Time 29, Sodium Level 134L, Potassium Level 4.7, Chloride Level 95L, Carbon Dioxide Level 30, Anion Gap 9, Blood Urea Nitrogen 25H, Creatinine 1.5H, Estimat Glomerular Filtration Rate 35.2, Glucose Level 163H, Lactic Acid Level 2.70H, Calcium Level 9.1, Phosphorus Level 3.9, Magnesium Level 1.9, Total Bilirubin 0.9, Aspartate Amino Transf (AST/SGOT) 28, Alanine Aminotransferase (ALT/SGPT) 38, Alkaline Phosphatase 94, Total Creatine Kinase 74, Creatine Kinase MB 1.5, Creatine Kinase MB Relative Index 2.0, Troponin I 0.041, Pro-B-Type Natriuretic Peptide 1724H, Total Protein 6.6, Albumin 3.1L, Globulin 3.5, Albumin/Globulin Ratio 0.9L, Lipase 116 11/16/18 19:15: Urine Color Pale yellow, Urine Appearance Clear, Urine pH 6.5, Urine Specific [place] 1.005, Urine Protein Negative, Urine Glucose (UA) Negative, Urine Ketones Negative, Urine Blood Negative, Urine Nitrite Negative, Urine Bilirubin Negative, Urine Urobilinogen Normal, Urine Leukocyte Esterase 2+H, Urine RBC 0-2 , Urine WBC 10-15H, Urine Squamous Epithelial Cells Few, Urine Bacteria Few 11/16/18 21:20: Lactic Acid Level 3.10H 11/17/18 03:58: White Blood Count 6.2#, Red Blood Count 4.16L, Hemoglobin 13.1, Hematocrit 38.6 , Mean Corpuscular Volume 93, Mean Corpuscular Hemoglobin 31.6H, Mean Corpuscular Hemoglobin Concent 34.0, Red Cell Distribution Width 16.1H, Platelet Count 94L, Mean Platelet Volume 7.0, Neutrophils (%) (Auto) , Lymphocytes (%) (Auto) , Monocytes (%) (Auto) , Eosinophils (%) (Auto) , Basophils (%) (Auto) , Sodium Level 140, Potassium Level 4.5, Chloride Level 102 , Carbon Dioxide Level 29, Anion Gap 9, Blood Urea Nitrogen 23H, Creatinine 1.3 , Estimat Glomerular Filtration Rate 41.5, Glucose Level 132H, Calcium Level 8.3L, Troponin I 0.017, Differential Total Cells Counted 100, Neutrophils % ( Manual) 92H, Lymphocytes % (Manual) 6L, Monocytes % (Manual) 2, Eosinophils % ( Manual) 0, Basophils % (Manual) 0, Band Neutrophils 0, Platelet Estimate DecreasedL, Platelet Morphology Normal, Anisocytosis 1+ Current Medications Medications (Trade) Dose Ordered Sig/Luther Route PRN Reason Start Time Stop Time Status Last Admin Dose Admin Acetaminophen (Tylenol) 650 mg Q4H PRN ORAL Mild Pain (Pain Scale 1-3) 11/17/18 00:00 12/17/18 00:00 Albuterol/ Ipratropium (Albuterol/ Ipratropium) 3 ml Q6HRT HHN 11/17/18 01:00 11/22/18 00:59 11/17/18 13:48 Amlodipine Besylate (Norvasc) 5 mg DAILY ORAL 11/17/18 09:00 12/17/18 08:59 11/17/18 10:14 Aspirin (ASA) 81 mg DAILY ORAL 11/17/18 09:00 12/17/18 08:59 11/17/18 10:14 Cephalexin (Keflex) 500 mg Q12HR ORAL 11/17/18 09:00 11/24/18 08:59 11/17/18 10:14 Citalopram Hydrobromide (celeXA) 10 mg DAILY ORAL 11/17/18 09:00 12/17/18 08:59 11/17/18 10:15 Colchicine (Colchicine) 0.6 mg TID ORAL 11/17/18 09:00 12/17/18 08:59 11/17/18 14:09 Dextrose (Dextrose 50%) 25 ml Q30M PRN IV Hypoglycemia 11/17/18 00:00 12/17/18 00:00 Dextrose (Dextrose 50%) 50 ml Q30M PRN IV Hypoglycemia 11/17/18 00:00 12/17/18 00:00 Docusate Sodium (Colace) 100 mg EVERY 12 HOURS ORAL 11/17/18 09:00 12/17/18 08:59 Famotidine (Pepcid) 20 mg DAILY ORAL 11/17/18 09:00 12/17/18 08:59 11/17/18 10:14 Hydromorphone HCl (Dilaudid) 0.5 mg EVERY 6 HOURS PRN IVP For Pain 11/17/18 05:15 11/24/18 05:14 11/17/18 10:40 Iopamidol (Isovue-300 100ml) 100 ml NOW PRN INJ Radiology Procedure 11/16/18 18:00 Lorazepam (Ativan) 1 mg Q4H PRN ORAL For Anxiety 11/17/18 00:00 11/24/18 00:00 Nitroglycerin (Ntg) 0.4 mg Q5M PRN SL Prn Chest Pain 11/17/18 00:00 12/17/18 00:00 Prednisone (predniSONE) 10 mg DAILY ORAL 11/17/18 09:00 12/17/18 08:59 11/17/18 10:16 Ozzy Lopez MD Nov 17, 2018 14:40
--- NOTE | 2018-11-17 15:34 | NUR ---
CASE MANAGEMENT: REVIEW 63Y/F BIBA FROM [facility] CC: CHEST PAIN . WEAKNESS . SOB SI: COPD WITH EXACERBATION T 99.3 HR 98 RR 16 BP 80/40 SAT 98% NC/4L WBC 15.9 LACTIC ACID 3.10 IS: NS IVF BOLUS X1 ZOFRAN IV X1 MORPHINE IV X1 DECADRON IV X1 ATROVENT HHN X1 ALBUTEROL HHN X1 CEFEPIME IV X1 DILAUDID IV X1 PATIENT ADMITTED TO TELEMETRY UNIT 11/16/2018 DCP: PATIENT IS FROM [facility]
--- NOTE | 2018-11-17 16:00 | History and Physical Report ---
DATE OF ADMISSION: 11/16/2018 REASON FOR ADMISSION: Shortness of breath. HISTORY OF PRESENT ILLNESS: The patient is a 63-year-old female who is being admitted for multiple complaints. The patient has underlying COPD and was slightly short of breath. She presented to the emergency room for further evaluation and care. Since being evaluated, the patient is demanding narcotics. She states that she has Mediterranean fever and that only narcotics and Dilaudid can cure her Mediterranean fever. She states that she has been on high-dose steroids. She denies any current nausea, vomiting, or diarrhea. States she has generalized aches and pains. PAST MEDICAL HISTORY: 1. COPD. 2. Anxiety. 3. Mediterranean fever. PAST SURGICAL HISTORY: Noncontributory ALLERGIES: Benadryl and morphine. FAMILY HISTORY: Noncontributory. REVIEW OF SYSTEMS: NEUROLOGIC: The patient denies headache, change in vision, syncope, or presyncopal episodes. CARDIOVASCULAR: She was complaining of some chest pressure. PULMONARY: Mild shortness of breath, nonproductive cough. GASTROINTESTINAL/GENITOURINARY: Some nausea, no diarrhea. ENDOCRINOLOGY: No night sweats, fevers, or chills. MUSCULOSKELETAL: The patient complains diffuse body aches and pains. PHYSICAL EXAMINATION: VITAL SIGNS: Blood pressure 110/60, respiratory rate 16, pulse 67, pulse oximetry 96%, and temperature 97. GENERAL: The patient is awake and alert, in no overt distress. HEENT: Extraocular muscles intact. No lymphadenopathy noted. CARDIOVASCULAR: S1, S2. No rubs or gallops. PULMONARY: Mild upper rhonchi with fair airway movement. No wheezing. ABDOMEN: Nondistended and nontender. EXTREMITIES: No edema. ASSESSMENT AND PLAN: 1. Mild chronic obstructive pulmonary disease exacerbation. At this time, we will convert the patient from IV steroids back to her prednisone 10 mg. We will continue antibiotics and inhaler therapy and consult Pulmonary. 2. Chest pain, noncardiac. The patient is demanding evaluation. We will have Cardiology clear the patient. 3. Diffuse body aches and pains. At this time, she is very suspicious for opioid and narcotic dependency. I have placed a small amount of Dilaudid and we will wean her off carefully. 4. Familial Mediterranean fever. We will continue her colchicine. 5. Anxiety. The patient is on p.r.n. Ativan and we will continue her Celexa. 6. DVT prophylaxis with Lovenox. Blade Bonilla MD DR: MOHAN JOB#: [id number] CC:
[2018-11-17] MEDS: LORazepam 1mg tab ORAL PRN ×2 (16:04→20:20)
[2018-11-17] MEDS: Artificial Tears 1.4% Op Soln BOTH EYES PRN (18:14)
--- NOTE | 2018-11-17 19:30 | NUR ---
NURSE NOTES: Received patient from Sunitha and Chaim RN. Patient in bed, on room air, refusing nasal cannula, patient took it off herself, no s/s of respiratory distress. PIV #20 gauge on left forearm, patent, no infiltration or infection, saline locked. Bed in low position, locked, call light within reach. Patient is ambulatory, went to the bathroom independently with staff standing by, weak but steady gait.
[2018-11-17] MEDS: Solu-MEDROL 40mg Inj IVP SCH (20:22)
--- NOTE | 2018-11-17 20:25 | NUR ---
NURSE NOTES: Explained to patient that per Mahad Fagan RN, Dr. Bonilla will not order any more pain medications and not to call him. Exlained that Dr. Dunaway will talk to her about the other medications in the morning. Offered ativan and tylenol. Patient refused tylenol. Administered ativan 1mg PO for anxiety.
--- NOTE | 2018-11-17 21:57 | NUR ---
NURSE NOTES: Patient's daughter Bianca present and requested that staff get the current med list from patient's assisted living so she can get her medications tonight. Spoke with Mariya RN at patient's assisted living and requested copy of current med list. Received fax and verified with Mariya that the list is current and that these meds are what she has been taking. The med recon on admission was outdated. Will correct record.
[2018-11-17] MEDS ORDERED: Zolpidem 5mg tab ORAL PRN ×2 (23:00)
--- NOTE | 2018-11-17 23:00 | NUR ---
NURSE NOTES: Received order from Dr. Bonilla for Ambien 10mg PO QHS PRN. Also informed him that the med recon is different than the current med list.
--- NOTE | 2018-11-17 23:18 | NUR ---
NURSE NOTES: Celsa from [facility] notified that ambien was changed to 5mg per [facility] policy.
--- NOTE | 2018-11-17 23:32 | NUR ---
NURSE NOTES Administered Ambien 5mg po. Explained to patient that [place] [facility] [place] can only give 5mg and that the doctor has no control over that.
[2018-11-18] VITALS: BP 121/66
[2018-11-18] MEDS: LORazepam 1mg tab ORAL PRN (00:23)
--- NOTE | 2018-11-18 02:13 | NUR ---
NURSE NOTES: Informed by [facility]AUTY THERAPIST that patient was complaining of insomnia and requesting artificial tears. Went to patient's room with medications, patient was asleep.
[2018-11-18] MEDS: Albuterol/Ipratropium 3ml neb HHN SCH ×3 (02:36→11:26)
--- NOTE | 2018-11-18 03:08 | NUR ---
NURSE NOTES: Next dose of PRN pain meds due, patient still asleep. Per patient, do not wake her up if she is asleep.
[2018-11-18] MEDS ORDERED: SUBOXONE 4 MG-1 EACH SL (03:48)
[2018-11-18] MEDS ORDERED: SUBOXONE 2 MG-1 EACH SL (03:50)
[2018-11-18] MEDS ORDERED: AMBIEN10 M1 ORAL (03:59)
[2018-11-18] MEDS ORDERED: KLOR-CON 1010 MEQ ORAL (03:59)
[2018-11-18] MEDS ORDERED: FUROSEMIDE20 M1 ORAL (03:59)
[2018-11-18] MEDS ORDERED: FUROSEMIDE40 MG ORAL (03:59)
[2018-11-18] MEDS ORDERED: ISOSORBIDE DINIT5 MG ORAL (04:06)
[2018-11-18] MEDS ORDERED: FISH OIL CAP1000 MG ORAL (04:06)
[2018-11-18] MEDS ORDERED: PROTONIX20 MG ORAL (04:06)
[2018-11-18] MEDS ORDERED: FOLIC ACID1 M1 PO (04:06)
[2018-11-18] MEDS ORDERED: LIALDA1.2 GM ORAL (04:06)
[2018-11-18] MEDS ORDERED: NEURONTIN300 MG ORAL (04:18)
[2018-11-18] MEDS ORDERED: DOXAZOSIN MESYLA2 MG ORAL (04:18)
[2018-11-18] MEDS ORDERED: PREDNISONE5 M3 PO (04:18)
[2018-11-18] MEDS ORDERED: FERROUS SULFAT325 M2 ORAL (04:18)
[2018-11-18] MEDS ORDERED: PRAVACHOL40 MG ORAL (04:18)
[2018-11-18] MEDS ORDERED: MAGOX 400400 MG ORAL (04:18)
[2018-11-18] MEDS ORDERED: CELEBREX100 MG ORAL (04:18)
[2018-11-18] MEDS ORDERED: ZANAFLEX2 M1 ORAL (04:38)
[2018-11-18] MEDS ORDERED: LOPERAMIDE2 MG PO (04:38)
[2018-11-18] MEDS ORDERED: VENTOLIN HFA18 GM INH (04:38)
[2018-11-18] MEDS ORDERED: IBUPROFEN600 MG ORAL (04:38)
[2018-11-18] MEDS ORDERED: FLONASE1 SPRAYS NASAL (04:38)
[2018-11-18] MEDS ORDERED: ATIVAN1 MG ORAL (04:38)
[2018-11-18] MEDS ORDERED: CLONAZEPAM1 MG PO (04:38)
[2018-11-18] MEDS: HYDROmorphone 1mg/ml Carpuject IVP PRN ×2 (05:18→09:12)
[2018-11-18 05:20] VITALS: BP 127/73
[2018-11-18] MEDS ORDERED: ZOFRAN ODT8 MG SL (05:54)
[2018-11-18] MEDS ORDERED: IPRATROPIU0.2 MG/1 M HHN (05:58)
--- NOTE | 2018-11-18 07:30 | NUR ---
NURSE NOTES: Nurse report given by ALEJO Yoder. Patient's sleeping in bed. No s/s of acute distress or SOB. Bed at lowest position, breaks engaged and call light within reach. Will continue to monitor.
[2018-11-18 08:00] VITALS: BP 144/66
[2018-11-18] MEDS: Cephalexin 500mg cap ORAL SCH (08:27)
[2018-11-18] MEDS: Solu-MEDROL 40mg Inj IVP SCH (08:27)
[2018-11-18] MEDS: Aspirin Baby 81mg ORAL SCH (08:27)
[2018-11-18] MEDS: Citalopram Hydrobromide 10mg Tab ORAL SCH (08:29)
[2018-11-18] MEDS: Docusate 100mg cap ORAL SCH (08:29)
--- NOTE | 2018-11-18 09:00 | NUR ---
NURSE NOTES: Patient refused physical therapist in the am. However, nurse assisted patient to the bathroom and patient ambulates and stable when walking. Denies dizziness or shortness of breath. Patient agree to have PT later at 1200. PT Mihir is notified.
--- NOTE | 2018-11-18 10:19 | NUR ---
*-* INSURANCE *-* CLINICALS AND REVIEWS HAVE BEEN FAXED TO: [facility] P: [phone] F: [phone]
[2018-11-18 11:57] VITALS: BP 122/70
--- NOTE | 2018-11-18 12:00 | NUR ---
P.T Note: Pt refused to participate in P.T evaluation due to c/o not feeling well. Pt requested to be seen tomorrow. RN notified/aware. Will reattempt tomorrow.
[2018-11-18] MEDS ORDERED: Furosemide 40mg tab ORAL SCH (12:30)
--- NOTE | 2018-11-18 12:39 | Nephrology Progress Note ---
Assessment/Plan Status: stable Assessment/Plan: A/P 1) Mild COPD Excacerbation. Complete 5 more days of Abx - cleared by Pulm - Dc on her prednisone 10mg daily - inhalers at SNF per her PCP - f/u with pulm post DC 2) Atypical Chest Pain- cleared by cardiology for DC - patient requesting dilaudid 3) Opiod Dependancy- ?? patient continues to demand dialudid at a higher dose and frequency - PCP at SNF to manage. Here we kept her on 0.5 mg q 6hrs 4) Med Fam Fever- Colchichine We continue her SNF medications best we could until full list was just given late last night. She is being discharged and to continue same medications + Abx for 5 days Subjective Date patient seen: Nov 18, 2018 Time patient seen: 12:35 ROS Limited/Unobtainable: No Allergies: Coded Allergies: DIPHENHYDRAMINE (Verified Allergy, Severe, 05/19/15) GENERAL STIFFNESS MORPHINE (Verified Allergy, Unknown, Rash, 11/16/18) Subjective Patient c/o of lack of narcotics/opiods. Objective Last 24 Hour Vital Signs Date Time Temp Pulse Resp B/P (MAP) Pulse Ox O2 Delivery O2 Flow Rate FiO2 11/18/18 11:57 98.5 84 21 122/70 (87) 96 11/18/18 11:31 75 18 98 Nasal Cannula 3.0 32 11/18/18 11:29 75 18 98 Nasal Cannula 3.0 32 11/18/18 11:15 86 18 91 Room Air 11/18/18 09:00 Nasal Cannula 2.0 11/18/18 08:28 65 144/66 11/18/18 08:00 63 11/18/18 08:00 97.0 65 21 144/66 (92) 96 11/18/18 07:23 Nasal Cannula 3.0 32 11/18/18 07:23 Nasal Cannula 3.0 32 11/18/18 07:23 97 Nasal Cannula 3.0 32 11/18/18 05:20 97.9 71 19 127/73 (91) 96 11/18/18 03:27 69 11/18/18 02:37 Nasal Cannula 3.0 32 11/18/18 02:36 Nasal Cannula 3.0 32 11/18/18 00:22 86 11/18/18 00:00 97.9 86 20 121/66 (84) 98 11/17/18 23:30 74 18 98 Nasal Cannula 3.0 32 11/17/18 23:19 77 18 97 Nasal Cannula 3.0 32 11/17/18 21:00 Nasal Cannula 2.0 11/17/18 20:00 97.6 81 19 137/71 (93) 94 11/17/18 19:45 76 11/17/18 19:37 77 18 98 Nasal Cannula 3.0 32 11/17/18 19:27 78 18 96 Nasal Cannula 3.0 32 11/17/18 19:27 96 Nasal Cannula 3.0 32 11/17/18 16:22 82 11/17/18 16:00 97.9 81 20 140/74 (96) 97 11/17/18 15:45 97.7 11/17/18 14:01 72 18 97 Nasal Cannula 3.0 32 11/17/18 13:49 75 18 95 Nasal Cannula 3.0 32 11/17/18 12:36 97.7 76 20 128/62 (84) Intake and Output 11/17/18 11/18/18 18:59 06:59 Intake Total 360 ml Balance 360 ml Intake Oral 360 ml # Voids 3 2 Height (Feet): 5 Height (Inches): 2.00 Weight (Pounds): 145 General Appearance: no apparent distress EENT: normal ENT inspection Neck: normal alignment, supple Cardiovascular: normal rate, regular rhythm Respiratory/Chest: lungs clear, normal breath sounds Abdomen: non tender, soft Edema: no edema noted Arm (L), no edema noted Arm (R), no edema noted Leg (L), no edema noted Leg (R), no edema noted Pedal (L), no edema noted Pedal (R), no edema noted Generalized Blade Bonilla MD Nov 18, 2018 12:39
--- NOTE | 2018-11-18 12:41 | Discharge Instructions ---
Discharge Instructions Discharge Instructions Services at Discharge: day care Activity: resume normal activities Follow Up Orders DC back to SNF on same medications Only change was antibiotics for 5 days Follow up with Dr Lopez of Pulmonary For Congestive Heart Failure Reminder Report to your physician any weight gain of 5 pounds or more in one week. Blade Bonilla MD Nov 18, 2018 12:41
--- NOTE | 2018-11-18 12:54 | Diagnostic Imaging Report ---
Indication: Dyspnea Comparison: None A single view chest radiograph was obtained. Findings: No definite infiltrate or pulmonary vascular congestion identified. Consistent changes are noted within the lungs. The heart is enlarged. The aorta is mildly enlarged consistent with atherosclerotic vascular disease. The bones are osteopenic. Impression: No acute disease
[2018-11-18] MEDS: Artificial Tears 1.4% Op Soln BOTH EYES PRN (12:59)
--- NOTE | 2018-11-18 14:50 | NUR ---
NURSE NOTES: Patient's discharged per Dr. Bonilla's order. Patient is cleared by Dr Lopez and Dr Barrios. Patient's going to [facility], spoke with Nuzhat DHILLON from the facility and gave the nursing report about the patient that will be going there in room 212-B. Patient's stable, AOx4, ambulates independently, no s/s of acute distress or SOB. Belonging list and medication list are signed by patient. Discharge paper went over with patient and signed by patient. warranty coordinator, ID band and IV are removed. Patient's transferred by [facility] lifeline and off the unit at 1450.
--- NOTE | 2018-11-18 16:42 | Pulmonology Progress Note ---
Assessment/Plan Assessment/Plan Pulmonary Progress Note HPI Patient is a 63-year-old fwoman with history of COPD, Familial Mediterranean Fever who presents with chest and abdominal pain, shortness of breath, the symptoms started 1 day prior to admission, chest pain described as a tightness, severity moderate and difficulty breathing, no nausea no vomiting, she also endorses chronic pain from the mentoring fever achy in nature, severity is moderate, no aggravating or alleviating factors, pain onset has been chronic. Less SOB Allergies: DIPHENHYDRAMINE MORPHINE Past Medical History: COPD, Hypertension, Familial Mediterranean Fever All Other Systems: negative except mentioned in HPI Physical Exam Vital Signs Noted Date Time Temp Pulse Resp B/P (MAP) Pulse Ox O2 Delivery O2 Flow Rate FiO2 11/16/18 17:37 99.3 98 16 80/40 (53) 90 Room Air General Appearance: well appearing, no apparent distress, alert Head: normocephalic, atraumatic Eyes: bilateral eye PERRL, bilateral eye EOMI ENT: uvula midline, moist mucus membranes Neck: supple, thyroid normal, supple/symm/no masses Respiratory: no retraction, no accessory muscle use, wheezing - Moderate wheezing Cardiovascular: normal peripheral pulses, regular rate, rhythm, normal HS1/HS2 , no edema, no gallop, no murmur Gastrointestinal: soft, no guarding, no rebound, tenderness - diffuse tenderness, mild Musculoskeletal: normal inspection Neurologic: alert, oriented x3 Impression: Familial Mediterranean fever COPD with exacerbation Chest pain Hypertension Plan Chest pain HHN Prednisone - taper 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 Antibiotics O2 PRN Laboratory Tests Test 11/16/18 17:50 11/16/18 19:15 11/16/18 19:20 White Blood Count 15.9 K/UL (4.8-10.8) H Red Blood Count 4.57 M/UL (4.20-5.40) Hemoglobin 14.3 G/DL (12.0-16.0) Hematocrit 41.4 % (37.0-47.0) Mean Corpuscular Volume 91 FL (80-99) Mean Corpuscular Hemoglobin 31.3 PG (27.0-31.0) H Mean Corpuscular Hemoglobin Concent 34.6 G/DL (32.0-36.0) Red Cell Distribution Width 15.1 % (11.6-14.8) H Platelet Count 115 K/UL (150-450) L Mean Platelet Volume 5.9 FL (6.5-10.1) L Neutrophils (%) (Auto) % (45.0-75.0) Lymphocytes (%) (Auto) % (20.0-45.0) Monocytes (%) (Auto) % (1.0-10.0) Eosinophils (%) (Auto) % (0.0-3.0) Basophils (%) (Auto) % (0.0-2.0) Prothrombin Time 10.7 SEC (9.30-11.50) Prothrombin Time INR 1.0 (0.9-1.1) PTT 29 SEC (23-33) Sodium Level 134 MMOL/L (136-145) L Potassium Level 4.7 MMOL/L (3.5-5.1) Chloride Level 95 MMOL/L (98-107) L Carbon Dioxide Level 30 MMOL/L (21-32) Anion Gap 9 mmol/L (5-15) Blood Urea Nitrogen 25 mg/dL (7-18) H Creatinine 1.5 MG/DL (0.55-1.30) H Estimate Glomerular Filtration Rate 35.2 mL/min (>60) Glucose Level 163 MG/DL (74-106) H Lactic Acid Level 2.70 mmol/L (0.4-2.0) H Pending Calcium Level 9.1 MG/DL (8.5-10.1) Phosphorus Level 3.9 MG/DL (2.5-4.9) Magnesium Level 1.9 MG/DL (1.8-2.4) Total Bilirubin 0.9 MG/DL (0.2-1.0) Aspartate Amino Transferase (AST) 28 U/L (15-37) Alanine Aminotransferase (ALT) 38 U/L (12-78) Alkaline Phosphatase 94 U/L (46-116) Total Creatine Kinase 74 U/L (26-308) Creatine Kinase MB 1.5 NG/ML (0.0-3.6) Creatine Kinase MB Relative Index 2.0 Troponin I 0.041 ng/mL (0.000-0.056) Pro-B-Type Natriuretic Peptide 1724 pg/mL (0-125) H Total Protein 6.6 G/DL (6.4-8.2) Albumin 3.1 G/DL (3.4-5.0) L Globulin 3.5 g/dL Albumin/Globulin Ratio 0.9 (1.0-2.7) L Lipase 116 U/L (73-393) Urine Color Pale yellow Urine Appearance Clear Urine pH 6.5 (4.5-8.0) Urine Specific [place] 1.005 (1.005-1.035) Urine Protein Negative (NEGATIVE) Urine Glucose (UA) Negative (NEGATIVE) Urine Ketones Negative (NEGATIVE) Urine Blood Negative (NEGATIVE) Urine Nitrite Negative (NEGATIVE) Urine Bilirubin Negative (NEGATIVE) Urine Urobilinogen Normal MG/DL (0.0-1.0) Urine Leukocyte Esterase 2+ (NEGATIVE) H Urine RBC 0-2 /HPF (0 - 2) Urine WBC 10-15 /HPF (0 - 2) H Urine Squamous Epithelial Cells Few /LPF (NONE/OCC) Urine Bacteria Few /HPF (NONE) EKG: sinus tachycardia, rate 105, qtc 420, no acute st elev, left axis dev Rate: tachycardiac Rhythm: other - sinus tachycardia ST Segments: no acute changes Chest X-Ray: no consolidation, no effusion, no pneumothorax, no acute cardiopulmonary disease CT : Final Report EXAM: CT Abdomen and Pelvis With Intravenous Contrast FINDINGS: Lung bases: Unremarkable. No mass. No consolidation. Heart: Bibasilar atelectatic changes. Small pericardial effusion measuring up to 15 mm in the dependent portion. ABDOMEN: Liver: Unremarkable. No mass. Gallbladder and bile ducts: Cholecystectomy. Interval absence of the previously evident common bile duct stent. Common duct measures 7 mm on this examination. No intrahepatic biliary dilation. Mild residual left pneumobilia. Pancreas: Unremarkable. No mass. No ductal dilation. Spleen: Splenomegaly with the spleen measuring 17.6 cm in craniocaudal extent. This is similar to prior. Adrenals: Unremarkable. No mass. Kidneys and ureters: Bilateral renal cortical scarring, similar to prior. No calcified urinary tract stones identified. No hydronephrosis. Stomach and bowel: Patulous second portion duodenum persists. There are a few nonspecific fluid-filled small bowel loops in the right lower quadrant without definite findings of obstruction. No mucosal thickening. PELVIS: Appendix: No findings to suggest acute appendicitis. Bladder: Unremarkable. No mass. Reproductive: Unremarkable as visualized. ABDOMEN and PELVIS: Intraperitoneal space: Trace ascites. No free air. Bones/joints: Right hip arthroplasty is redemonstrated. Streak artifact from right hip arthroplasty degrades detailed assessment of the pelvis. No acute fracture. No dislocation. Soft tissues: Bilateral breast prostheses. Umbilical piercing. Vasculature: Unremarkable. No abdominal aortic aneurysm. Lymph nodes: Unremarkable. No enlarged lymph nodes. IMPRESSION: Patulous loops of small bowel could represent areas of ileus. No definite confines of bowel obstruction.. Otherwise multiple additional findings in the abdomen and pelvis as described. No specific explanation for abdominal pain is identified. Patient seen 11/18/2018 at 11:30 AM Subjective ROS Limited/Unobtainable: No Allergies: Coded Allergies: DIPHENHYDRAMINE (Verified Allergy, Severe, 05/19/15) GENERAL STIFFNESS MORPHINE (Verified Allergy, Unknown, Rash, 11/16/18) Objective Last 24 Hour Vital Signs Date Time Temp Pulse Resp B/P (MAP) Pulse Ox O2 Delivery O2 Flow Rate FiO2 11/18/18 12:00 77 11/18/18 11:57 98.5 84 21 122/70 (87) 96 11/18/18 11:31 75 18 98 Nasal Cannula 3.0 32 11/18/18 11:29 75 18 98 Nasal Cannula 3.0 32 11/18/18 11:15 86 18 91 Room Air 11/18/18 09:00 Nasal Cannula 2.0 11/18/18 08:28 65 144/66 11/18/18 08:00 63 11/18/18 08:00 97.0 65 21 144/66 (92) 96 11/18/18 07:23 Nasal Cannula 3.0 32 11/18/18 07:23 Nasal Cannula 3.0 32 11/18/18 07:23 97 Nasal Cannula 3.0 32 11/18/18 05:20 97.9 71 19 127/73 (91) 96 11/18/18 03:27 69 11/18/18 02:37 Nasal Cannula 3.0 32 11/18/18 02:36 Nasal Cannula 3.0 32 11/18/18 00:22 86 11/18/18 00:00 97.9 86 20 121/66 (84) 98 11/17/18 23:30 74 18 98 Nasal Cannula 3.0 32 11/17/18 23:19 77 18 97 Nasal Cannula 3.0 32 11/17/18 21:00 Nasal Cannula 2.0 11/17/18 20:00 97.6 81 19 137/71 (93) 94 11/17/18 19:45 76 11/17/18 19:37 77 18 98 Nasal Cannula 3.0 32 11/17/18 19:27 78 18 96 Nasal Cannula 3.0 32 11/17/18 19:27 96 Nasal Cannula 3.0 32 Intake and Output 11/17/18 11/18/18 19:00 07:00 Intake Total 360 ml Balance 360 ml Intake Oral 360 ml # Voids 3 2 Microbiology Date/Time Source Procedure Growth Status 11/16/18 17:50 Blood Blood Culture - Preliminary NO GROWTH AFTER 24 HOURS Resulted 11/16/18 17:35 Blood Blood Culture - Preliminary NO GROWTH AFTER 24 HOURS Resulted 11/16/18 19:15 Urine,Clean Catch Urine Culture - Preliminary Gram Negative Bacillus 1 Resulted 11/17/18 04:00 Rectum Received Ozzy Lopez MD Nov 18, 2018 16:42
--- NOTE | 2018-11-19 11:57 | Discharge Summary ---
Discharge Summary Discharge Summary _ DATE OF ADMISSION 11/16/2018 DATE OF DISCHARGE: 11/18/2018 DISCHARGED BY: Dr. Bonilla REASON FOR ADMISSION: 63 years old female with past medical history of COPD, hypertension, familial Mediterranean fever, depression, brought to emergency department due to abdominal pain, generalized weakness, chest pain , shortness of breath. Patient reported chest tightness and some difficulty breathing. No nausea, no vomiting. Patient reported chronic diffuse pain due to familial Mediterranean fever. Upon evaluation pulse oximetry was 90% on room air. Laboratory work-up revealed leukocytosis with WBC 15.9, stable hemoglobin and hematocrit. Stable electrolytes. Lactic acid 2.7. BUN 25, creatinine 1.5. Glucose 163. Troponin 0.041. Pro BNP 1724. EKG revealed sinus rhythm , no acute ischemic changes. Chest x-ray revealed no acute cardiopulmonary pathology. CT of the abdomen and pelvis revealed no evidence of acute intra-abdominal pathology. Patient admitted to telemetry floor for further management. 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 Barrios pulmonary Dr. Lopez [facility]PITAL COURSE: Patient admitted to telemetry floor. Serial troponin were negative. EKG revealed no acute ischemic changes. Patient was ruled out for acute myocardial infarction. Nitroglycerin was on board as needed. Patient started on antiplatelet therapy with aspirin. Lumber Straightened recommended outpatient stress test. Chest pain was noncardiac, given nature of the pain and chronicity. 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 Supplemental oxygen provided as needed and titrated to keep pulse oximetry above 90%. Pulmonary toilet via handheld nebulizing therapy with bronchodilator provided as needed. Patient started on steroids with gradual tapering down and. Antibiotics. Blood pressure was managed with calcium channel clay, remained stable. Nitroglycerin was on board as needed. Pain management was addressed . Supportive care provided. Patient clinically stabilized and was ready [facility] of care. FINAL DIAGNOSES: COPD with exacerbation Chest pain, noncardiac Hypertension Familial Mediterranean fever Anxiety DISCHARGE MEDICATIONS: List of medication was sent to accepting facility DISCHARGE INSTRUCTIONS: [facility] was [facility] to the [facility]. Follow up with medical doctor at the facility. I have been assigned to dictate discharge summary for this account. I was not involved in the patient's management. Roxanna Mcdonough NP Nov 19, 2018 11:57
--- NOTE | 2018-11-19 12:59 | NUR ---
*-* INSURANCE *-* DISCHARGE SUMMARY HAS BEEN FAXED TO: [facility] P: [phone] F: [phone]
== END 2018-11-18 15:25 | DRG 140 ==
LOC: EDBD 17:40 → EMR 18:10 → EDBEDREQSVC 18:13 → CANBEDREQ 21:19 → 2W 23:08 → EDBEDREQ 11-17 00:18 → 2E 11-17 09:07
DX: J44.1 Chronic obstructive pulmonary disease with (acute) exacerbation (principal); M04.1 Periodic fever syndromes; F11.20 Opioid dependence, uncomplicated; R07.89 Other chest pain; Z88.6 Allergy status to analgesic agent; Z88.8 Allergy status to other drugs, medicaments and biological substances; F41.9 Anxiety disorder, unspecified; I10 Essential (primary) hypertension
CPT/HCPCS: 36415; 71045; 74177; 80048; 80053; 81003; 82550; 82553; 83605; 83690; 83735; 83880; 84100; 84484; 85007; 85025; 85610; 85730; 86850; 86900; 86901; 87040; 87081; 87086; 87181; 93005; 94640; 94664; 96361; 96365; 96375; 96376; 99285; J2405; J7620

== ENCOUNTER 2018-12-01 15:37 | Inpatient (IN) | payer MEDICAID ==
[2018-12-01] VITALS (7 sets, daily range): BP systolic 100–114; BP diastolic 52–72
[~2018-12-01] VITALS: Ht 154.9 cm; Wt 66.8 kg
[~2018-12-01 15:37] MED LIST changes: +AMBIEN10 M1 ORAL; +ATIVAN1 MG ORAL; +CELEBREX100 MG ORAL; +CLONAZEPAM1 MG PO; +DOXAZOSIN MESYLA2 MG ORAL; +FERROUS SULFAT325 M2 ORAL; +FISH OIL CAP1000 MG ORAL; +FLONASE1 SPRAYS NASAL; +FOLIC ACID1 M1 PO; +FUROSEMIDE40 MG ORAL; +IBUPROFEN600 MG ORAL; +IPRATROPIU0.2 MG/1 M HHN; +ISOSORBIDE DINIT5 MG ORAL; +KLOR-CON 1010 MEQ ORAL; +LIALDA1.2 GM ORAL; +LOPERAMIDE2 MG PO; +MAGOX 400400 MG ORAL; +NEURONTIN300 MG ORAL; +PRAVACHOL40 MG ORAL; +PREDNISONE5 M3 PO; +PROTONIX20 MG ORAL; +SUBOXONE 2 MG-1 EACH SL; +SUBOXONE 4 MG-1 EACH SL; +VENTOLIN HFA18 GM INH; +ZANAFLEX2 M1 ORAL; +ZOFRAN ODT8 MG SL
[2018-12-01] MEDS ORDERED: Solu-MEDROL 125mg Inj IVP ONE (16:15)
[2018-12-01] MEDS ORDERED: SUBOXONE 4 MG-1 EACH SL (16:17)
[2018-12-01] MEDS ORDERED: SUBOXONE 2 MG-1 EACH SL (16:17)
[2018-12-01] MEDS ORDERED: IBUPROFEN600 MG ORAL (16:20)
[2018-12-01] MEDS ORDERED: CEPHALEXIN500 MG ORAL (16:20)
--- NOTE | 2018-12-01 16:20 | NUR ---
ED Nurse Note: pt brought in by ambulance from [facility] c/c generalized weakness, abd pain for one week, pt also reports she's been having diarrhea and was taking immodium. pt denies nausea nor vomiting at this time. noted decrease BP, ERMD notified. pt AA&ox4, gcs=15, pale, skin dry and warm, noted mild audible wheezing, NSR on parole board member, will cont monitor.
[2018-12-01] MEDS: Albuterol ud Inhalation HHN SCH ×2 (16:30→16:52)
[2018-12-01] MEDS: Ipratropium 0.02% Inh Soln 2.5ml UD HHN SCH ×2 (16:30→16:52)
--- NOTE | 2018-12-01 16:45 | NUR ---
ED Nurse Note: contacted RT for breathing tx.
--- NOTE | 2018-12-01 17:00 | NUR ---
ED Nurse Note: pt reports pain 10/10 on abd area and headache, noted pt's systolic in 90s, denies n/v at this time, ermd notified. will cont monitor.
--- NOTE | 2018-12-01 17:00 | NUR ---
Note srini in EDM - 12/01/18 at 1717 by KPACHARLI ED Nurse Note: pt reports pain 01/23 on abd area and headache, denies n/v at this time, ermd notified.
[2018-12-01 17:05] LABS: APPEARANCE,URINE CLEAR; BILIRUBIN, URINE NEGATIVE (NEGATIVE); COLOR,URINE PALE YELLOW; GLUCOSE, URINE (UA) NEGATIVE (NEGATIVE); KETONES,URINE NEGATIVE (NEGATIVE); LEUKOCYTE ESTERASE ,URINE 1+ (NEGATIVE); NITRITE,URINE NEGATIVE (NEGATIVE); PH,URINE 5 (4.5-8.0); PROTEIN,URINE NEGATIVE (NEGATIVE); UROBILINOGEN,URINE NORMAL MG/DL (0.0-1.0)
--- NOTE | 2018-12-01 17:10 | NUR ---
ED Nurse Note: pt refused tylenol, pt reports she wants medication through IV only, nothing by mouth, ERMD notified, pt notified due to her condition and pending lab, will wait for meds via iv per ERMD.
[2018-12-01 17:13] LABS: HEMATOCRIT 32.7 % (37.0-47.0); HEMOGLOBIN 11.6 G/DL (12.0-16.0); MEAN CORPUSCULAR VOLUME 88 FL (80-99); PLATELET COUNT 96 K/UL (150-450); RED CELL DISTRIBUTION WIDTH 16.5 % (11.6-14.8); WHITE BLOOD COUNT 3.4 K/UL (4.8-10.8)
[2018-12-01] MEDS ORDERED: Acetaminophen 500mg (ES) tab ORAL ONE (17:15)
--- NOTE | 2018-12-01 17:15 | NUR ---
ED Nurse Note: pt refused other breathing tx, pt reports she just wants one breathing tx and doesn't want more. pt advised to notify staff if need breathing tx or feel sob. pt verbalized understanding.
[2018-12-01 17:16] LABS: ANION GAP 6 mmol/L (5-15); BLOOD UREA NITROGEN 28 mg/dL (7-18); CALCIUM 8.9 MG/DL (8.5-10.1); CARBON DIOXIDE 28 MMOL/L (21-32); CHLORIDE 109 MMOL/L (98-107); CREATININE 1.5 MG/DL (0.55-1.30); POTASSIUM 4.3 MMOL/L (3.5-5.1); SODIUM 143 MMOL/L (136-145)
--- NOTE | 2018-12-01 17:19 | Diagnostic Imaging Report ---
Indication: Shortness of breath Technique: One view of the chest Comparison: 11/16/2018 Findings: There is bilateral interstitial disease, reticular and nodular in nature, which appears more extensive than on previous study. The heart is borderline enlarged. The pleural spaces are grossly clear. There is some patchy airspace consolidation at the right lung base periphery. Impression: Reticular and nodular interstitial disease bilaterally as well as airspace opacities on the right, new since 11/16/2018. Differential considerations include pulmonary edema, versus atypical interstitial pneumonia. This agrees with the preliminary interpretation provided overnight by [facility].
[2018-12-01 17:31] LABS: ALANINE AMINOTRANSFERASE 43 U/L (12-78); ALBUMIN 3.5 G/DL (3.4-5.0); ALBUMIN/GLOBULIN RATIO 1.2 (1.0-2.7); ALKALINE PHOSPHATASE 90 U/L (46-116); ASPARTATE AMINO TRANSFERASE 45 U/L (15-37); BILIRUBIN,TOTAL 0.8 MG/DL (0.2-1.0); CKMB 2.7 NG/ML (0.0-3.6); CREATINE KINASE 103 U/L (26-308)
--- NOTE | 2018-12-01 18:55 | NUR ---
ED Nurse Note: noted pt increase in audible wheezing, pt reports she will have breathing tx, RT contacted.
--- NOTE | 2018-12-01 19:20 | NUR ---
ED Nurse Note: pt resting at this time, vss, NSR on campus monitor, pt on continuous oxygen, will cont monitor.
--- NOTE | 2018-12-01 19:32 | Emergency Room Report ---
History of Present Illness General Chief Complaint: Generalized Weakness Source: Patient, EMS Present Illness HPI 63-year-old female presents ED for evaluation. Coming by EMS from assisted living facility. Complaining of generalized weakness. Shortness of breath. Diarrhea x1 week. History of COPD. Denies fevers chills. Denies chest pain. States she has a cough denies cough. Denies cough. No other aggravating relieving factors. Denies any other associated symptoms Allergies: Coded Allergies: DIPHENHYDRAMINE (Verified Allergy, Severe, 05/19/15) GENERAL STIFFNESS MORPHINE (Verified Allergy, Unknown, Rash, 11/16/18) Patient History Past Medical History: HTN, COPD Past Surgical History: none Pertinent Family History: none Social History: Denies: smoking, alcohol use, drug use Now: No Immunizations: UTD Reviewed Nursing Documentation: PMH: Agreed; PSxH: Agreed Nursing Documentation-PMH Past Medical History: No History, Except For Hx Cardiac Problems: Yes Hx Hypertension: Yes Hx COPD: Yes Hx Cancer: No Hx Gastrointestinal Problems: Yes Hx Neurological Problems: No Review of Systems All Other Systems: negative except mentioned in HPI Physical Exam Vital Signs Date Time Temp Pulse Resp B/P (MAP) Pulse Ox O2 Delivery O2 Flow Rate FiO2 12/01/18 15:32 98.2 89 17 96/62 (73) 92 Nasal Cannula 4.0 12/01/18 16:52 28 Sp02 EP Interpretation: reviewed, normal General Appearance: no apparent distress, alert, GCS 15, non-toxic Head: normocephalic, atraumatic Eyes: bilateral eye normal inspection, bilateral eye PERRL ENT: hearing grossly normal, normal pharynx, no angioedema, normal voice Neck: full range of motion, supple/symm/no masses Respiratory: chest non-tender, speaking full sentences, wheezing Cardiovascular #1: regular rate, rhythm, no edema Cardiovascular #2: 2+ carotid (R), 2+ carotid (L), 2+ radial (R), 2+ radial (L) , 2+ dorsalis pedis (R), 2+ dorsalis pedis (L) Gastrointestinal: normal bowel sounds, non tender, soft, non-distended, no guarding, no rebound Rectal: deferred Genitourinary: normal inspection, no CVA tenderness Musculoskeletal: back normal, gait/station normal, normal range of motion, non- tender Neurologic: alert, oriented x3, responsive, motor strength/tone normal, sensory intact, speech normal Psychiatric: judgement/insight normal, memory normal, mood/affect normal, no suicidal/homicidal ideation Reflexes: 3+ bicep (R), 3+ bicep (L), 3+ tricep (R), 3+ tricep (L), 3+ knee (R) , 3+ knee (L) Lymphatic: no adenopathy Medical Decision Making Diagnostic Impression: Primary Impression: Episode of generalized weakness Additional Impressions: Diarrhea Qualified Codes: R19.7 - Diarrhea, unspecified COPD (chronic obstructive pulmonary disease) Qualified Codes: J44.9 - Chronic obstructive pulmonary disease, unspecified Renal insufficiency ER Course Hospital Course 63-year-old F presenting to ED with SOB. h/o COPD. weakness and diarrhea Differential diagnoses include: Pneumonia, CHF exacerbation, pneumothorax, fluid overload Clinical course Patient placed on stretcher. On pocket maker with stable vitals. After initial history and physical, I ordered nebulizer treatments. I ordered labs, IV fluids, EKG, chest x-ray, blood cultures, UA. Labs - no leukocytosis noted, hemoglobin/hematocrit stable, BUN/Cr elvated, BNP > 6000, trop negative CXR -cardiomegaly, interstitial congestion EKGnormal sinus rhythm no acute ischemic changes interpreted by me BP somewhat low on arrival. Systolic in the 90s. Improved with small fluid bolus. Given antibiotics. Breathing improved after breathing treatments. Because of insurance patient will be transferred I feel this is a highly complex case requiring extensive working including EKG/ Rhythm strip, Xray/CT/US, Blood/urine lab work, repeat exams while in ED, and administration of strong opiates/narcotics for pain control, admission to hospital or close patient follow up. Diagnosis -episode of generalized weakness, diarrhea, COPD, renal insufficiency Transferred in serious condition Labs Test 12/01/18 16:15 12/01/18 16:39 White Blood Count 3.4 K/UL (4.8-10.8) Red Blood Count 3.70 M/UL (4.20-5.40) Hemoglobin 11.6 G/DL (12.0-16.0) Hematocrit 32.7 % (37.0-47.0) Mean Corpuscular Volume 88 FL (80-99) Mean Corpuscular Hemoglobin 31.4 PG (27.0-31.0) Mean Corpuscular Hemoglobin Concent 35.5 G/DL (32.0-36.0) Red Cell Distribution Width 16.5 % (11.6-14.8) Platelet Count 96 K/UL (150-450) Mean Platelet Volume 6.1 FL (6.5-10.1) Neutrophils (%) (Auto) % (45.0-75.0) Lymphocytes (%) (Auto) % (20.0-45.0) Monocytes (%) (Auto) % (1.0-10.0) Eosinophils (%) (Auto) % (0.0-3.0) Basophils (%) (Auto) % (0.0-2.0) Sodium Level 143 MMOL/L (136-145) Potassium Level 4.3 MMOL/L (3.5-5.1) Chloride Level 109 MMOL/L (98-107) Carbon Dioxide Level 28 MMOL/L (21-32) Anion Gap 6 mmol/L (5-15) Blood Urea Nitrogen 28 mg/dL (7-18) Creatinine 1.5 MG/DL (0.55-1.30) Estimat Glomerular Filtration Rate 35.2 mL/min (>60) Glucose Level 106 MG/DL (74-106) Calcium Level 8.9 MG/DL (8.5-10.1) Total Bilirubin 0.8 MG/DL (0.2-1.0) Aspartate Amino Transf (AST/SGOT) 45 U/L (15-37) Alanine Aminotransferase (ALT/SGPT) 43 U/L (12-78) Alkaline Phosphatase 90 U/L (46-116) Total Creatine Kinase 103 U/L (26-308) Creatine Kinase MB 2.7 NG/ML (0.0-3.6) Creatine Kinase MB Relative Index 2.6 Troponin I 0.023 ng/mL (0.000-0.056) Pro-B-Type Natriuretic Peptide 6207 pg/mL (0-125) Total Protein 6.3 G/DL (6.4-8.2) Albumin 3.5 G/DL (3.4-5.0) Globulin 2.8 g/dL Albumin/Globulin Ratio 1.2 (1.0-2.7) Urine Color Pale yellow Urine Appearance Clear Urine pH 5 (4.5-8.0) Urine Specific [place] 1.010 (1.005-1.035) Urine Protein Negative (NEGATIVE) Urine Glucose (UA) Negative (NEGATIVE) Urine Ketones Negative (NEGATIVE) Urine Blood Negative (NEGATIVE) Urine Nitrite Negative (NEGATIVE) Urine Bilirubin Negative (NEGATIVE) Urine Urobilinogen Normal MG/DL (0.0-1.0) Urine Leukocyte Esterase 1+ (NEGATIVE) Urine RBC 0 /HPF (0 - 2) Urine WBC 5-10 /HPF (0 - 2) Urine Squamous Epithelial Cells Few /LPF (NONE/OCC) Urine Bacteria Few /HPF (NONE) EKG Diagnostic Results Rate: normal Rhythm: NSR ST Segments: no acute changes ASA given to the pt in ED: No Rhythm Strip Diag. Results EP Interpretation: yes Rhythm: NSR, no PVC's, no ectopy Chest X-Ray Diagnostic Results Chest X-Ray Diagnostic Results : Chest X-Ray Ordered: Yes # of Views/Limited/Complete: 1 View Indication: Shortness of Breath EP Interpretation: Yes Interpretation: no pneumothorax, no acute cardiopulmonary disease, other - cardiomegaly. interstitial congestion. Impression: Other - ?CHF Electronically Signed by: Electronically signed by Gerardo Cervantes MD Last Vital Signs Date Time Temp Pulse Resp B/P (MAP) Pulse Ox O2 Delivery O2 Flow Rate FiO2 12/01/18 17:22 89 22 100 Nasal Cannula 2.0 28 12/01/18 16:00 98.2 100/52 Status: improved Disposition: XFER [facility] Condition: Serious Referrals: NON PHYSICIAN (PCP) Gerardo Cervantes MD Dec 01, 2018 19:32
[2018-12-01] MEDS ORDERED: Ipratropium 0.02% Inh Soln 2.5ml UD HHN ONE (19:45)
[2018-12-01] MEDS ORDERED: Albuterol ud Inhalation HHN ONE (19:45)
--- NOTE | 2018-12-01 20:15 | NUR ---
ED Nurse Note: pt states she has to urinate, bedpan provided but pt reports she cannot urinate due to pain, ERMD notified and bowie cath order obtained.
--- NOTE | 2018-12-01 20:30 | NUR ---
ED Nurse Note: bowie cath 16 fr inserted per ERMD order, 10cc ns inserted, 50cc yellow clear urine returned. secured on right leg, will cont monitor. pt tolerated well.
--- NOTE | 2018-12-01 21:53 | NUR ---
ED Nurse Note: spoke with Reynold and per Reynold, receiving RN currently with another pt, will call back to get report.
--- NOTE | 2018-12-01 22:15 | NUR ---
ED Nurse Note: Pt transferred to tele, NSR on inside sales director, report given to ALEJO Quiroz and endorsed care, all belongings sent w/ pt w/ list. iv intact and patent.
--- NOTE | 2018-12-01 23:18 | NUR ---
NURSE NOTES: Received pt from ALEJO Espinoza at bedside. Pt awake, alert, and c/o pain. Pt requesting dilaudid for pain. Called and spoke with Dr. Herrmann, he continued suboxone but did not add dilaudid. Pt very anxious and crying loudly because dilaudid wasnt ordered. Pt is denying suboxone and reporting that it doesnt work for her. Skin intact, IV site intact and patent. Bed in lowest position. Call light within reach. Dr. Herrmann ordered the following medications: - continue home meds -regular diet - bilateral SCDs - Duoneb Q6 scheduled Will input orders and will continue to monitor.
[2018-12-01] MEDS ORDERED: Ondansetron ODT 8mg tab SL PRN (23:30)
[2018-12-02] VITALS: BP 118/66
[2018-12-02] MEDS: Albuterol/Ipratropium 3ml neb HHN SCH ×4 (00:39→19:20)
[2018-12-02] MEDS: LORazepam 1mg tab ORAL PRN ×2 (01:56→20:36)
[2018-12-02] MEDS: Zolpidem 5mg tab ORAL PRN ×2 (01:56→22:15)
[2018-12-02 04:00] VITALS: BP 109/66
--- NOTE | 2018-12-02 07:32 | NUR ---
CASE MANAGEMENT:REVIEW 63 YR OLD FEMALE BIBA FROM [facility] CC: GENERALIZED WEAKNESS. ABDOMINAL PAIN X1 WEEK. DIARRHEA SI:GENERALIZED WEAKNESS. COPD. RENAL INSUFFICIENCY DIARRHEA 98.3 89 17 96/62 92% ON 4L/NC H/H-11.6/32.7 PLT-96 BUN+28 CR+1.5 IS: DUONEB HHN Q15 MIN 500CC NS BOLUS IV SOLUMEDROL 1L NS BOLUS IV LEVAQUIN IV MAG SULFATE CXR : TO TELEMETRY *INTERQUAL CRITERIA MET
--- NOTE | 2018-12-02 07:39 | NUR ---
HAND-OFF: Report given to rn. Celine pt stable. Addendum: 12/02/18 at 0740 by Gabriella Laureano RN HAND-OFF: Report given to RN. David
--- NOTE | 2018-12-02 07:42 | NUR ---
NURSE NOTES: Received report from ALEJO Quiroz. Patient in bed resting, no active s/s cardiac, respiratory distress noticed at this time. Patient AOx4, on 3L oxygen via NC. Endorsed patient was having diarrhea, but since admission, no diarrhea. SR with HR 74. IV on right FA 20G, on left hand 22G, asymptomatic, patent, intact. Bed in lowest position, side rails upx3, call light within reach. Will continue to monitor.
[2018-12-02 08:00] VITALS: BP 106/68
[2018-12-02] MEDS ORDERED: Solu-MEDROL 125mg Inj IVP SCH (09:30)
[2018-12-02] MEDS: Citalopram Hydrobromide 10mg Tab ORAL SCH (09:40)
[2018-12-02] MEDS: Mesalamine 400mg cap ORAL SCH ×2 (09:40→20:41)
--- NOTE | 2018-12-02 11:00 | NUR ---
NURSE NOTES: Discontinue Smalls Cath per Dr. Herrmann. Order noted, entered, carried out.
--- NOTE | 2018-12-02 11:19 | NUR ---
HAND-OFF: Report given to ALEJO Neff.
--- NOTE | 2018-12-02 11:25 | NUR ---
NURSE NOTES: Received report from David DHILLON, pt. in bed awake, able to make needs known- A/O x's4, no signs or symptoms of acute cardiac or respiratory distress noted, bed in lowest position and skye llght within easy reach, bed alarm on, side rails up x's 3 and safety brakes engaged, pt. appears to be clean and dry, pt. appears to be sating well on 3L NC no distress noted, RFA 20G and Lt. hand 20G both IVs intact and patent, safety measures continued, will continue with plan of care. Addendum: 12/02/18 at 1134 by DOTTIE OSWALD RN RN Smalls intact and draining to gravity- but order to D/C Smalls- will carry out order.
[2018-12-02 12:00] VITALS: BP 108/64
--- NOTE | 2018-12-02 13:30 | History and Physical Report ---
DATE OF ADMISSION: 12/01/2018 HISTORY OF PRESENT ILLNESS: This is a 63-year-old female, who came to the emergency room with multiple complaints. The patient is a resident at assisted living facility and states she was admitted to [facility] recently week hospitalization. The patient states she is having chest pain, shortness of breath, diarrhea, back pain, headache, throat pain, generalized weakness and malaise and also fever. The patient essentially has multiple complaints without a clear localization of her symptomatology. ALLERGIES: To Benadryl and reportedly morphine although this is unverified. PAST HISTORY: Hypertension, COPD, chronic pain, previous narcotic addiction. SURGICAL HISTORY: None reported. FAMILY HISTORY: None. SOCIAL HISTORY: She is a board and care resident. PHYSICAL EXAMINATION: GENERAL: Reveals a 63-year-old female. HEENT: Unremarkable LUNGS: Clear breath sounds bilaterally with normal heart sounds. ABDOMEN: Soft with mild right upper quadrant discomfort. EXTREMITIES: There is no edema. No cyanosis or clubbing. NEUROLOGIC: Nonfocal. LABORATORY AND DIAGNOSTIC DATA: Lab testing is unremarkable except for creatinine of 1.5. ProBNP borderline elevated. Troponin 0.023. X-ray of the chest shows clear lung rae with possible vascular congestion. IMPRESSION: 1. Borderline troponin. 2. Question of pulmonary edema. 3. Chest pain. 4. Shortness of breath. 5. History of diarrhea. 6. History of previous narcotic addiction. DISCUSSION: Admit to the hospital. We will obtain 2D echo. Consult Cardiology. Continue home medications. Avoid narcotics. We will follow carefully. Nomr Herrmann M.D. DR: MARTA JOB#: [id number] CC:
[2018-12-02 16:00] VITALS: BP 113/64
--- NOTE | 2018-12-02 16:12 | Consultation ---
History of Present Illness General Date patient seen: Dec 02, 2018 Present Illness Allergies: Coded Allergies: DIPHENHYDRAMINE (Verified Allergy, Severe, 05/19/15) GENERAL STIFFNESS MORPHINE (Verified Allergy, Unknown, Rash, 11/16/18) Medication History Scheduled Alprazolam* (Xanax*), 1 MG ORAL QHS, (Reported) Amlodipine Besylate (Norvasc), 5 MG ORAL DAILY, (Reported) Bisacodyl* (Dulcolax*), 10 MG ORAL DAILY, (Reported) Buprenorphine Hcl/Naloxone Hcl (Suboxone 4 Mg-1 Mg Sl Film), 1 EACH SL DAILY, ( Reported) Buprenorphine Hcl/Naloxone Hcl (Suboxone 2 Mg-0.5 Mg Sl Film), 1 EACH SL DAILY, (Reported) Celecoxib* (Celebrex*), 100 MG ORAL DAILY, (Reported) Cephalexin* (Keflex*), 500 MG ORAL BID, (Reported) Citalopram Hydrobromide* (Citalopram Hbr*), 40 MG ORAL DAILY, (Reported) Clonidine Hcl* (Catapres*), 0.1 MG ORAL PRN, (Reported) Colchicine (Colcrys), 0.6 MG PO TID, (Reported) Doxazosin Mesylate (Doxazosin Mesylate), 1 MG ORAL BEDTIME, (Reported) Esomeprazole Magnesium (Nexium), 40 MG ORAL DAILY, (Reported) Ferrous Sulfate (Ferrous Sulfate), 325 MG ORAL TWICE A DAY, (Reported) Fish Oil (Fish Oil 1,000 mg Capsule), 1,000 MG ORAL TWICE A DAY, (Reported) Folic Acid (Folic Acid), 1 MG PO DAILY, (Reported) Furosemide* (Lasix*), 20 MG ORAL PRN, (Reported) Furosemide* (Lasix*), 20 MG ORAL DAILY, (Reported) Furosemide* (Lasix*), 40 MG ORAL BID, (Reported) Gabapentin (Neurontin), 600 MG ORAL BID, (Reported) Isosorbide Dinitrate (Isosorbide Dinitrate*), 10 MG ORAL THREE TIMES A DAY, ( Reported) Magnesium Oxide (Magox 400), 400 MG ORAL BID, (Reported) Mesalamine (Lialda), 800 MG ORAL Q12HR, (Reported) Mineral Oil (Mineral Oil), 15 ML PO PRN, (Reported) Morphine Sulfate (Morphine Sulfate), 30 MG PO PRN, (Reported) Nitroglycerin (Nitroglycerin), 0.4 MG SL PRN, (Reported) Pantoprazole Sodium (Protonix), 40 MG ORAL DAILY, (Reported) Potassium Chloride (Klor-Con 10), 8 MEQ ORAL TWICE A DAY, (Reported) Pravastatin Sodium (Pravachol), 20 MG ORAL BEDTIME, (Reported) Prednisone (Prednisone), 15 MG PO DAILY, (Reported) Zolpidem Tartrate* (Ambien*), 10 MG ORAL HS, (Reported) Scheduled PRN Albuterol Sulfate (Ventolin Hfa), 2 PUFFS INH EVERY 6 HOURS PRN for Shortness of Breath, (Reported) Clonazepam (Clonazepam), 1 MG PO HS PRN for Insomnia, (Reported) Fluticasone Propionate (Fluticasone Propionate), 1 SPRAY NASAL DAILY PRN for To Patient Comfort, (Reported) Ibuprofen* (Motrin*), 800 MG ORAL TWICE A DAY PRN for For Pain, (Reported) Ibuprofen* (Motrin*), 600 MG ORAL BID PRN for For Pain, (Reported) Ipratropium [place] 0.5MG/2.5ML (Ipratropium [place] 0.5MG/2.5ML), 0.5 MG HHN Q4HR PRN for Shortness of Breath, (Reported) Loperamide Hcl (Loperamide), 2 MG PO Q6HR PRN for Diarrhea, (Reported) Lorazepam* (Ativan*), 1 MG ORAL Q6HR PRN for Agitation, (Reported) Ondansetron Odt* (Zofran Odt*), 4 MG SL Q4HR PRN for Nausea & Vomiting, ( Reported) Tizanidine Hcl (Zanaflex), 2 MG ORAL BEDTIME PRN for For Pain, (Reported) Miscellaneous Medications Buprenorphine Hcl/Naloxone Hcl (Suboxone 4 Mg-1 Mg Sl Film), 1 EACH SL, ( Reported) Buprenorphine Hcl/Naloxone Hcl (Suboxone 2 Mg-0.5 Mg Sl Film), 1 EACH SL, ( Reported) Patient History Healthcare decision maker mario [id number] Resuscitation status Full Code Advanced Directive on File Physical Exam Last 24 Hour Vital Signs Date Time Temp Pulse Resp B/P (MAP) Pulse Ox O2 Delivery O2 Flow Rate FiO2 8/19/19 12:59 73 18 99 Nasal Cannula 2.0 28 12/02/18 12:48 70 18 97 Nasal Cannula 2.0 28 12/02/18 12:15 108/64 12/02/18 12:00 96.2 73 18 108/64 (79) 98 12/02/18 12:00 74 12/02/18 09:39 120/68 12/02/18 09:00 Nasal Cannula 3.0 12/02/18 08:00 97.6 71 18 106/68 (81) 98 12/02/18 08:00 71 12/02/18 06:48 74 18 98 Nasal Cannula 2.0 28 12/02/18 06:38 68 16 97 Nasal Cannula 2.0 28 12/02/18 04:00 97.9 72 19 109/66 (80) 98 12/02/18 04:00 66 12/02/18 02:14 Nasal Cannula 2.0 12/02/18 00:40 Nasal Cannula 2.0 28 12/02/18 00:40 Nasal Cannula 2.0 28 12/02/18 00:00 97.7 70 19 118/66 (83) 97 12/02/18 00:00 74 12/01/18 22:15 99.2 73 19 100/63 98 Nasal Cannula 3.0 12/01/18 22:13 98.2 77 19 102/61 (75) 97 12/01/18 21:00 99.2 76 20 105/68 96 Nasal Cannula 3.0 12/01/18 20:12 78 18 100 Nasal Cannula 2.0 28 12/01/18 20:00 98.2 75 18 100/53 96 Nasal Cannula 2.0 12/01/18 19:57 74 18 94 Nasal Cannula 2.0 28 12/01/18 19:00 98.2 76 22 108/56 100 Nasal Cannula 3.0 12/01/18 18:00 98.0 76 22 110/56 100 Nasal Cannula 3.0 12/01/18 17:22 89 22 100 Nasal Cannula 2.0 28 12/01/18 17:00 98.5 72 20 114/72 96 Nasal Cannula 3.0 12/01/18 16:52 82 20 96 Nasal Cannula 2.0 28 Intake and Output 12/01/18 12/02/18 19:00 07:00 Intake Total 500 ml Output Total 1200 ml Balance 500 ml -1200 ml IV Total 500 ml Output Urine Total 1200 ml # Voids 1 Laboratory Tests Test 12/01/18 16:15 12/01/18 16:39 White Blood Count 3.4 K/UL (4.8-10.8) L Red Blood Count 3.70 M/UL (4.20-5.40) L Hemoglobin 11.6 G/DL (12.0-16.0) L Hematocrit 32.7 % (37.0-47.0) L Mean Corpuscular Volume 88 FL (80-99) Mean Corpuscular Hemoglobin 31.4 PG (27.0-31.0) H Mean Corpuscular Hemoglobin Concent 35.5 G/DL (32.0-36.0) Red Cell Distribution Width 16.5 % (11.6-14.8) H Platelet Count 96 K/UL (150-450) L Mean Platelet Volume 6.1 FL (6.5-10.1) L Neutrophils (%) (Auto) % (45.0-75.0) Lymphocytes (%) (Auto) % (20.0-45.0) Monocytes (%) (Auto) % (1.0-10.0) Eosinophils (%) (Auto) % (0.0-3.0) Basophils (%) (Auto) % (0.0-2.0) Sodium Level 143 MMOL/L (136-145) Potassium Level 4.3 MMOL/L (3.5-5.1) Chloride Level 109 MMOL/L (98-107) H Carbon Dioxide Level 28 MMOL/L (21-32) Anion Gap 6 mmol/L (5-15) Blood Urea Nitrogen 28 mg/dL (7-18) H Creatinine 1.5 MG/DL (0.55-1.30) H Estimat Glomerular Filtration Rate 35.2 mL/min (>60) Glucose Level 106 MG/DL (74-106) Calcium Level 8.9 MG/DL (8.5-10.1) Total Bilirubin 0.8 MG/DL (0.2-1.0) Aspartate Amino Transf (AST/SGOT) 45 U/L (15-37) H Alanine Aminotransferase (ALT/SGPT) 43 U/L (12-78) Alkaline Phosphatase 90 U/L (46-116) Total Creatine Kinase 103 U/L (26-308) Creatine Kinase MB 2.7 NG/ML (0.0-3.6) Creatine Kinase MB Relative Index 2.6 Troponin I 0.023 ng/mL (0.000-0.056) Pro-B-Type Natriuretic Peptide 6207 pg/mL (0-125) H Total Protein 6.3 G/DL (6.4-8.2) L Albumin 3.5 G/DL (3.4-5.0) Globulin 2.8 g/dL Albumin/Globulin Ratio 1.2 (1.0-2.7) Urine Color Pale yellow Urine Appearance Clear Urine pH 5 (4.5-8.0) Urine Specific [place] 1.010 (1.005-1.035) Urine Protein Negative (NEGATIVE) Urine Glucose (UA) Negative (NEGATIVE) Urine Ketones Negative (NEGATIVE) Urine Blood Negative (NEGATIVE) Urine Nitrite Negative (NEGATIVE) Urine Bilirubin Negative (NEGATIVE) Urine Urobilinogen Normal MG/DL (0.0-1.0) Urine Leukocyte Esterase 1+ (NEGATIVE) H Urine RBC 0 /HPF (0 - 2) Urine WBC 5-10 /HPF (0 - 2) H Urine Squamous Epithelial Cells Few /LPF (NONE/OCC) Urine Bacteria Few /HPF (NONE) Microbiology Date/Time Source Procedure Growth Status 12/01/18 20:55 Rectum Received Height (Feet): 5 Height (Inches): 1.00 Weight (Pounds): 135 Medications Current Medications Medications (Trade) Dose Ordered Sig/Luther Route PRN Reason Start Time Stop Time Status Last Admin Dose Admin Albuterol/ Ipratropium (Albuterol/ Ipratropium) 3 ml Q6HRT N 12/02/18 01:00 12/07/18 00:59 12/02/18 12:51 Citalopram Hydrobromide (celeXA) 40 mg DAILY ORAL 12/02/18 09:00 01/01/19 08:59 12/02/18 09:40 Colchicine (Colchicine) 0.6 mg TID ORAL 12/02/18 09:00 01/01/19 08:59 12/02/18 12:12 Ferrous Sulfate (Feosol) 325 mg BID ORAL 12/02/18 09:00 01/01/19 08:59 12/02/18 09:39 Fish Oil (Fish Oil) 1,000 mg TWICE A DAY ORAL 12/02/18 09:00 01/01/19 08:59 12/02/18 09:38 Folic Acid (Folate) 1 mg DAILY ORAL 12/02/18 09:00 01/01/19 08:59 12/02/18 09:39 Gabapentin (Neurontin) 600 mg BID ORAL 12/02/18 09:00 01/01/19 08:59 12/02/18 09:38 Isosorbide Dinitrate (Isordil) 10 mg TID ORAL 12/02/18 09:00 01/01/19 08:59 12/02/18 09:39 Loperamide HCl (Imodium) 2 mg Q6H PRN ORAL Diarrhea 12/01/18 23:30 12/31/18 23:29 Lorazepam (Ativan) 1 mg Q6H PRN ORAL Agitation 12/01/18 23:30 12/08/18 23:29 12/02/18 01:56 Mesalamine (Asacol) 800 mg Q12HR ORAL 12/02/18 09:00 01/01/19 08:59 12/02/18 09:40 Ondansetron HCl (Zofran ODT) 4 mg Q4H PRN SL Nausea & Vomiting 12/02/18 00:30 12/31/18 23:29 Pantoprazole (Protonix) 40 mg DAILY ORAL 12/02/18 09:00 01/01/19 08:59 12/02/18 09:39 Potassium Chloride (K-Dur) 10 meq TWICE A DAY ORAL 12/02/18 09:00 01/01/19 08:59 12/02/18 09:39 Pravastatin Sodium (Pravachol) 20 mg BEDTIME ORAL 12/02/18 21:00 01/01/19 20:59 Prednisone (predniSONE) 15 mg DAILY ORAL 12/02/18 09:00 01/01/19 08:59 12/02/18 09:39 Zolpidem Tartrate (Ambien) 10 mg HSPRN PRN ORAL Insomnia 12/02/18 01:30 12/09/18 01:29 12/02/18 01:56 Assessment/Plan Assessment/Plan: (1) Opioid dependency (2) Familial Mediterranean Fever seen dictated Lion Doherty Dec 02, 2018 16:12
[2018-12-02] MEDS ORDERED: HYDROmorphone 1mg/ml Carpuject IVPB PRN (16:15)
--- NOTE | 2018-12-02 16:33 | NUR ---
NURSE NOTES: CALLED DR. Herrmann- to see if he wanted blood pressure parameters for Isordil pt. has scheduled- as patient refused medication this morning concerned her blood pressure would drop. Per Dr. Herrmann to D/C order- orders read back and carried out.
[2018-12-02] MEDS: HYDROmorphone 1 MG in NS 55 ML IVPB PRN (17:48)
--- NOTE | 2018-12-02 19:09 | NUR ---
HAND-OFF: Report given to Gabriella Laureano RN, pt. remains stable and no signs of distress noted.
--- NOTE | 2018-12-02 19:20 | NUR ---
NURSE NOTES: Received pt from ALEJO Hi. Pt awake, alert, and c/o pain. Bed in lowest position. Call light within reach. Will continue to monitor.
--- NOTE | 2018-12-02 19:41 | Cardiology Report ---
APPROVED REPORT EXAM: Two-dimensional and M-mode echocardiogram with Doppler and color Doppler. INDICATION Congestive Heart Failure M-Mode DIMENSIONS IVSd1.1 (0.7-1.1cm)Left Atrium (MM)4.5 (1.6-4.0cm) LVDd4.4 (3.5-5.6cm)Aortic Root2.0 (2.0-3.7cm) PWd1.1 (0.7-1.1cm)Aortic Cusp Exc.1.6 (1.5-2.0cm) LVDs3.1 (2.5-4.0cm) PWs1.4 cm Technically difficult study due to poor apical acoustical windows. Normal left ventricular chamber size, systolic function and wall motion to extent visualized. Left ventricular ejection fraction estimated to be 60%. No left ventricular hypertrophy. Medium sized pericardial effusion. All other cardiac chamber sizes are within normal limits. Focal aortic valve sclerosis with adequate cusp excursion. Thickened mitral valve leaflets with normal excursion. Mitral annulus and aortic root calcification. Pulmonic valve not well visualized. Normal tricuspid valve structure. IVC at normal size with physiologic collapse. A color flow and spectral Doppler study was performed and revealed: Mild aortic regurgitation. Mitral diastolic velocities suggest reduced left ventricular relaxation c/w mild LV diastolic dysfunction (Grade I ). Trace to mild mitral regurgitation Mild tricuspid regurgitation. Tricuspid systolic velocities suggests peak right ventricular systolic pressure of 24 mmHg. Pulmonic regurgitation present.
[2018-12-02] MEDS ORDERED: BUPRENORP-NALO1 EAC1 SL (19:42)
[2018-12-02] MEDS ORDERED: PREDNISONE5 M4 PO (19:51)
--- NOTE | 2018-12-02 19:53 | Cardiology Report ---
APPROVED REPORT EKG Measurement Heart [id number] RI [id number] Normal sinus rhythm Normal ECG
[2018-12-02] MEDS ORDERED: ALBUTEROL2.5 MG/3 M INH (19:58)
[2018-12-02 20:00] VITALS: BP 121/66
[2018-12-02] MEDS ORDERED: VENTOLIN HFA18 GM INH (20:04)
[2018-12-02] MEDS ORDERED: Zolpidem 5mg tab ORAL SCH (21:00)
[2018-12-03] VITALS: BP 143/73
[2018-12-03] MEDS: Albuterol/Ipratropium 3ml neb HHN SCH ×4 (01:01→19:46)
[2018-12-03] MEDS: HYDROmorphone 1 MG in NS 55 ML IVPB PRN ×3 (01:35→15:27)
[2018-12-03 04:00] VITALS: BP 126/72
--- NOTE | 2018-12-03 04:15 | Consultation ---
DATE OF CONSULTATION: 12/02/2018 PAIN MANAGEMENT CONSULTATION CONSULTING PHYSICIAN: Deloris Zee M.D. REFERRING PHYSICIAN: Norm Herrmann M.D. PHYSICIAN CHANNEL PROCESS PLANT OPERATOR: Cliff Mensah CHIEF COMPLAINT: Generalized body pain. HISTORY OF PRESENT ILLNESS: The patient is a 63-year-old female who is being seen on the telemetry floor of [facility] for initial pain management consultation. The patient was admitted under the care of Dr. Herrmann due to COPD exacerbation and weakness. The patient is in bed, complaining of generalized body pain, reporting that she has Familial Mediterranean Fever which is a chronic condition for many years, rating it 10/10 at its worst, describing her pain as aching, throbbing pain throughout her body as well as having lower back issues which she said is due to herniated disk. The patient is in bed with her daughter at bedside. In the past, she has been treated with morphine extended release 30 mg three times a day and about six month ago was switched to Suboxone 6 mg film once a day. However, the patient reports that she has not been on this medication for the past three weeks due to being taken to the hospital and then prescription to have it continued, and due to this, we were consulted as the patient would have adequate pain control while here in the hospital. At this time, I discussed in detail about opiate use, dependency and tolerance and the use of narcotics especially in a patient with COPD exacerbation and respiratory issues, that the opioid can reduce her respiratory rate and increase the chances for possible continued pneumonia or infection. She seems to understand, however, she is in severe pain at this time unable to start her on Suboxone due to hospital not having the medication on formulary and discussed with the patient about Dilaudid 1 mg IV piggyback every 6 hours, she seems to understand. PAST MEDICAL HISTORY: FMF, hypertension, COPD, CHF, PAST SURGICAL HISTORY: bile duct stone removal, and gallbladder removal. SOCIAL HISTORY: Denies smoking tobacco, drinking alcohol, or IV drug abuse. MEDICATIONS: Xanax, Norvasc, Suboxone, Celebrex, Keflex, citalopram, Catapres, doxazosin, Nexium, ferrous sulfate, fish oil, folic acid, Lasix, Neurontin, isosorbide, Maalox, Lialda, nitroglycerin, Protonix, Klor-Con, Pravachol, prednisone, and Ambien. ALLERGIES: To Benadryl. REVIEW OF SYSTEMS: Denies rash, fever, chills, sweating, dizziness, drowsiness, blurred vision, sore throat, or change in weight. No nausea, vomiting, diarrhea, or blood in stool or urine. No bowel or bladder incontinence. No dysuria. She is complaining of generalized body pain. PHYSICAL EXAMINATION: GENERAL: Alert, awake, and oriented. VITAL SIGNS: Blood pressure 108/64, heart rate is 73, O2 saturation 98%, respiratory rate 18, temperature 96.8 degrees Fahrenheit. HEENT: PERRLA. NECK: Range of motion is full in all directions. No tenderness to paracervical muscles. No adenopathy. LUNGS: Decreased breath sounds bilaterally. HEART: S1 and S2 regular. ABDOMEN: Soft and nontender. BACK: Range of motion is decreased in flexion and extension. EXTREMITIES: Upper and lower extremity range of motion is decreased due to the patient's condition. No cyanosis. No clubbing. Sensory is reduced. Reflexes are not obtainable. No adenopathy. ASSESSMENT AND PLAN: This is a 63-year-old female with Familial Mediterranean Fever and opioid dependency. The patient will be started on Dilaudid 1 mg IV piggyback every 6 hours as needed for severe pain. The patient was discussed with Dr. Zee and Dr. Zee concurred. We will follow the patient. Thank you very much for the courtesy of this consultation. Deloris Zee M.D. JESSICA Mensah DR: Ana Luisa JOB#: [id number] CC: MAXX
--- NOTE | 2018-12-03 07:11 | NUR ---
NURSE NOTES: Received patient from Gabriella DHILLON, in bed awake, A/O X4, no signs or symptoms of acute distress noted, bed is in lowest position, brakes engaged for safety, call light is within easy reach, bed alarm on, side rails up X3. Patient is on 3L NC. Patient has RFA 20G and Lt. hand 20G both IV's intact and patent. Will continue with the plan of care.
--- NOTE | 2018-12-03 07:52 | NUR ---
HAND-OFF: Report given to ALEJO Peres. Stable condition.
[2018-12-03 08:00] VITALS: BP 133/74
[2018-12-03] MEDS: Mesalamine 400mg cap ORAL SCH ×2 (08:11→20:40)
[2018-12-03] MEDS: Citalopram Hydrobromide 10mg Tab ORAL SCH (08:13)
--- NOTE | 2018-12-03 11:54 | Pulmonology Progress Note ---
Assessment/Plan Assessment/Plan IMPRESSION: 1. Borderline troponin. 2. Question of pulmonary edema. 3. Chest pain. 4. Shortness of breath. 5. History of diarrhea. 6. History of previous narcotic addiction. 7. History of FMF 8. Possible pneumonia RLL DISCUSSION: Await 2D echo. Continue home medications. Pain mangement followup. I will follow carefully. Added abx Subjective Interval Events: Seen by pain management. Feeling unchanged Constitutional: Reports: no symptoms HEENT: Repors: no symptoms Respiratory: Reports: no symptoms Cardiovascular: Reports: no symptoms Gastrointestinal/Abdominal: Reports: no symptoms Genitourinary: Reports: no symptoms Allergies: Coded Allergies: DIPHENHYDRAMINE (Verified Allergy, Severe, 05/19/15) GENERAL STIFFNESS MORPHINE (Verified Allergy, Unknown, Rash, 11/16/18) Objective Last 24 Hour Vital Signs Date Time Temp Pulse Resp B/P (MAP) Pulse Ox O2 Delivery O2 Flow Rate FiO2 12/03/18 09:00 Nasal Cannula 3.0 12/03/18 08:00 97.2 63 20 133/74 (93) 98 12/03/18 08:00 61 12/03/18 07:28 Nasal Cannula 12/03/18 07:28 72 16 96 Nasal Cannula 2.0 28 12/03/18 04:00 97.2 68 18 126/72 (90) 96 12/03/18 04:00 71 12/03/18 01:10 73 18 99 Nasal Cannula 2.0 28 12/03/18 01:01 70 16 96 Nasal Cannula 2.0 28 12/03/18 00:00 73 12/03/18 00:00 97.2 73 18 143/73 (96) 100 12/02/18 21:00 Nasal Cannula 3.0 12/02/18 20:00 82 12/02/18 20:00 97.9 80 18 121/66 (84) 95 12/02/18 19:30 75 18 99 Nasal Cannula 2.0 28 12/02/18 19:20 73 18 96 Nasal Cannula 2.0 28 12/02/18 18:18 97.8 12/02/18 16:00 73 12/02/18 16:00 97.8 75 18 113/64 (80) 95 12/02/18 12:59 73 18 99 Nasal Cannula 2.0 28 12/02/18 12:48 70 18 97 Nasal Cannula 2.0 28 12/02/18 12:15 108/64 12/02/18 12:00 96.2 73 18 108/64 (79) 98 12/02/18 12:00 74 Intake and Output 12/02/18 12/03/18 19:00 07:00 Intake Total 720 ml Output Total 800 ml Balance -80 ml Intake Oral 720 ml Output Urine Total 800 ml # Voids 2 # Bowel Movements 2 General Appearance: no acute distress HEENT: normocephalic Respiratory/Chest: chest wall non-tender, lungs clear Cardiovascular: normal peripheral pulses, normal rate Abdomen: normal bowel sounds Microbiology Date/Time Source Procedure Growth Status 12/01/18 16:15 Blood Blood Culture - Preliminary NO GROWTH AFTER 24 HOURS Resulted 12/01/18 16:15 Blood Blood Culture - Preliminary NO GROWTH AFTER 24 HOURS Resulted 12/01/18 20:55 Rectum Received Current Medications Medications (Trade) Dose Ordered Sig/Luther Route PRN Reason Start Time Stop Time Status Last Admin Dose Admin Albuterol/ Ipratropium (Albuterol/ Ipratropium) 3 ml Q6HRT HHN 12/02/18 01:00 12/07/18 00:59 12/03/18 01:01 Citalopram Hydrobromide (celeXA) 40 mg DAILY ORAL 12/02/18 09:00 01/01/19 08:59 12/03/18 08:13 Colchicine (Colchicine) 0.6 mg TID ORAL 12/02/18 09:00 01/01/19 08:59 12/03/18 08:12 Ferrous Sulfate (Feosol) 325 mg BID ORAL 12/02/18 09:00 01/01/19 08:59 12/03/18 08:13 Fish Oil (Fish Oil) 1,000 mg TWICE A DAY ORAL 12/02/18 09:00 01/01/19 08:59 12/03/18 08:13 Folic Acid (Folate) 1 mg DAILY ORAL 12/02/18 09:00 01/01/19 08:59 12/03/18 08:11 Gabapentin (Neurontin) 600 mg BID ORAL 12/02/18 09:00 01/01/19 08:59 12/03/18 08:12 Hydromorphone HCl 1 mg/Sodium Chloride 56 ml @ 224 mls/hr Q6H PRN IVPB Severe Pain (Pain Scale 7-10) 12/02/18 16:30 12/09/18 16:29 12/03/18 07:45 Loperamide HCl (Imodium) 2 mg Q6H PRN ORAL Diarrhea 12/01/18 23:30 12/31/18 23:29 Lorazepam (Ativan) 1 mg Q6H PRN ORAL Agitation 12/01/18 23:30 12/08/18 23:29 12/02/18 20:36 Mesalamine (Asacol) 800 mg Q12HR ORAL 12/02/18 09:00 01/01/19 08:59 12/03/18 08:11 Ondansetron HCl (Zofran ODT) 4 mg Q4H PRN SL Nausea & Vomiting 12/02/18 00:30 12/31/18 23:29 12/03/18 01:11 Pantoprazole (Protonix) 40 mg DAILY ORAL 12/02/18 09:00 01/01/19 08:59 12/03/18 08:12 Potassium Chloride (K-Dur) 10 meq TWICE A DAY ORAL 12/02/18 09:00 01/01/19 08:59 12/03/18 08:12 Pravastatin Sodium (Pravachol) 20 mg BEDTIME ORAL 12/02/18 21:00 01/01/19 20:59 12/02/18 20:36 Prednisone (predniSONE) 15 mg DAILY ORAL 12/02/18 09:00 01/01/19 08:59 12/03/18 08:11 Zolpidem Tartrate (Ambien) 10 mg HSPRN PRN ORAL Insomnia 12/02/18 01:30 12/09/18 01:29 12/02/18 22:15 Norm Herrmann MD Dec 03, 2018 11:54
[2018-12-03 12:00] VITALS: BP 134/68
--- NOTE | 2018-12-03 12:45 | NUR ---
CASE MANAGEMENT:REVIEW 12/03/18 SI: CHEST PAIN W/BORDERLINE TROPONIN POSSIBLE RLL PNA 97.2 63 20 133/74 98% ON 2L/NC IS: IV ROCEPHIN Q24 IV DILAUDID/NS Q6HRS PRN COLCHICINE PO TID FOLATE PO QD NEURONTIN PO BID PREDNISONE PO QD PROTONIX PO QD K-DUR PO BID : TELEMETRY STATUS DCP: FROM [facility]
[2018-12-03] MEDS: Loperamide 2mg cap ORAL PRN ×2 (13:10→20:40)
[2018-12-03] MEDS: cefTRIAXone 1 GM in D5W 55 ML IVPB SCH (14:09)
--- NOTE | 2018-12-03 14:13 | General Progress Note ---
Assessment/Plan Assessment/Plan: (1) Opioid dependency (2) Familial Mediterranean Fever We will discontinue the Dilaudid IVPB and start Dilaudid 2mg PO 1 tab Q6H PRN severe pain D/w Dr. Zee and he concurred. Subjective Date patient seen: Dec 03, 2018 Time patient seen: 01:30 - pm Constitutional: Reports: weakness HEENT: Reports: no symptoms Cardiovascular: Reports: no symptoms Respiratory: Reports: no symptoms Gastrointestinal/Abdominal: Reports: no symptoms Genitourinary: Reports: no symptoms Neurologic/Psychiatric: Reports: weakness Endocrine: Reports: no symptoms Hematologic/Lymphatic: Reports: no symptoms Allergies: Coded Allergies: DIPHENHYDRAMINE (Verified Allergy, Severe, 05/19/15) GENERAL STIFFNESS MORPHINE (Verified Allergy, Unknown, Rash, 11/16/18) Subjective Patient is in bed and showing no signs of pain or distress. Having gotten 3 doses of Dilaudid IVPB. I d/w patient about changing the IVPB into tabs and she seems to understand. Objective Last 24 Hour Vital Signs Date Time Temp Pulse Resp B/P (MAP) Pulse Ox O2 Delivery O2 Flow Rate FiO2 12/03/18 13:20 69 18 97 Nasal Cannula 2.0 28 12/03/18 13:10 74 16 89 Room Air 21 12/03/18 12:00 69 12/03/18 12:00 97.0 69 18 134/68 (90) 96 12/03/18 09:00 Nasal Cannula 3.0 12/03/18 08:00 97.2 63 20 133/74 (93) 98 12/03/18 08:00 61 12/03/18 07:28 Nasal Cannula 12/03/18 07:28 72 16 96 Nasal Cannula 2.0 28 12/03/18 04:00 97.2 68 18 126/72 (90) 96 12/03/18 04:00 71 12/03/18 01:10 73 18 99 Nasal Cannula 2.0 28 12/03/18 01:01 70 16 96 Nasal Cannula 2.0 28 12/03/18 00:00 73 12/03/18 00:00 97.2 73 18 143/73 (96) 100 12/02/18 21:00 Nasal Cannula 3.0 12/02/18 20:00 82 12/02/18 20:00 97.9 80 18 121/66 (84) 95 12/02/18 19:30 75 18 99 Nasal Cannula 2.0 28 12/02/18 19:20 73 18 96 Nasal Cannula 2.0 28 12/02/18 18:18 97.8 12/02/18 16:00 73 12/02/18 16:00 97.8 75 18 113/64 (80) 95 Intake and Output 12/02/18 12/03/18 19:00 07:00 Intake Total 720 ml Output Total 800 ml Balance -80 ml Intake Oral 720 ml Output Urine Total 800 ml # Voids 2 # Bowel Movements 2 Height (Feet): 5 Height (Inches): 1.00 Weight (Pounds): 135 General Appearance: no apparent distress, alert EENT: PERRL/EOMI, normal ENT inspection Neck: non-tender, normal alignment Cardiovascular: normal rate, regular rhythm Respiratory/Chest: decreased breath sounds Abdomen: non tender, soft Edema: no edema noted Generalized Neurologic: alert, oriented x 3 Skin: normal pigmentation Lion Doherty Dec 03, 2018 14:13
--- NOTE | 2018-12-03 15:12 | NUR ---
*-* INSURANCE *-* ALL CLINICALS AND REVIEWS HAVE BEEN FAXED TO: [facility] NELSON P: [phone] *[id number] BLAYNE F: [phone] (FAX ALL CLINICALS)
[2018-12-03 16:00] VITALS: BP 134/76
--- NOTE | 2018-12-03 19:20 | NUR ---
HAND-OFF: Report given to ALEJO Gonzalez. Endorsed plan of care. Patient is instable condition.
--- NOTE | 2018-12-03 19:35 | NUR ---
NURSE NOTES: Pt received from ALEJO Zarate alert and oriented x4 with no acute s/s of distress noted. On 3L NC, saturating at 93% with no acute s/s of resp distress. IV site asymptomatic and patent on R hand 20 g and L hand 22g, saline lock. Bed in lowest position, call light and belongings within reach.
[2018-12-03 20:00] VITALS: BP 122/65
[2018-12-03] MEDS: LORazepam 1mg tab ORAL PRN (20:40)
[2018-12-03] MEDS: HYDROmorphone 2mg tab ORAL PRN (21:51)
[2018-12-03] MEDS: Zolpidem 5mg tab ORAL PRN (23:09)
[2018-12-04] VITALS: BP 134/70
[2018-12-04] MEDS: Albuterol/Ipratropium 3ml neb HHN SCH ×4 (00:11→19:00)
[2018-12-04 04:00] VITALS: BP 132/64
[2018-12-04] MEDS: HYDROmorphone 2mg tab ORAL PRN ×3 (04:04→18:43)
[2018-12-04 06:39] LABS: HEMATOCRIT 34.1 % (37.0-47.0); HEMOGLOBIN 11.2 G/DL (12.0-16.0); MEAN CORPUSCULAR VOLUME 94 FL (80-99); PLATELET COUNT 86 K/UL (150-450); RED BLOOD COUNT 3.64 M/UL (4.20-5.40); RED CELL DISTRIBUTION WIDTH 17.9 % (11.6-14.8); WHITE BLOOD COUNT 4.3 K/UL (4.8-10.8)
[2018-12-04 07:03] LABS: ANION GAP 6 mmol/L (5-15); BLOOD UREA NITROGEN 27 mg/dL (7-18); CALCIUM 8.5 MG/DL (8.5-10.1); CARBON DIOXIDE 26 MMOL/L (21-32); CHLORIDE 108 MMOL/L (98-107); SODIUM 140 MMOL/L (136-145)
--- NOTE | 2018-12-04 07:23 | NUR ---
NURSE NOTES: Received patient from Carlos RN, in bed resting, denies any pain at this time. No signs or symptoms of acute distress noted, bed is in lowest position, brakes engaged for safety, call light is within easy reach, bed alarm on, side rails up X3. Patient is on 3L NC. Patient has RFA 20G and Lt. hand 20G both IV's intact and patent. Will continue with the plan of care.
--- NOTE | 2018-12-04 07:54 | NUR ---
HAND-OFF: Report given to ALEJO Zarate. No acute s/s of distress noted, plan of care endorsed.
[2018-12-04 08:00] VITALS: BP 134/73
--- NOTE | 2018-12-04 08:49 | General Progress Note ---
Assessment/Plan Assessment/Plan: (1) Opioid dependency (2) Familial Mediterranean Fever We will continue Dilaudid An Rx for Dilaudid and Narcan was written for patient in anticipation for discharge. D/w Dr. Zee and he concurred. Subjective Date patient seen: Dec 04, 2018 Time patient seen: 08:15 - am Constitutional: Reports: weakness HEENT: Reports: no symptoms Cardiovascular: Reports: no symptoms Respiratory: Reports: no symptoms Gastrointestinal/Abdominal: Reports: no symptoms Genitourinary: Reports: no symptoms Neurologic/Psychiatric: Reports: weakness Endocrine: Reports: no symptoms Hematologic/Lymphatic: Reports: no symptoms Allergies: Coded Allergies: DIPHENHYDRAMINE (Verified Allergy, Severe, 05/19/15) GENERAL STIFFNESS MORPHINE (Verified Allergy, Unknown, Rash, 11/16/18) Subjective Patient is in bed no signs of pain or distress. Reports pain at a moderate level. Using the Dilaudid as needed. No new complaints at this time. Objective Last 24 Hour Vital Signs Date Time Temp Pulse Resp B/P (MAP) Pulse Ox O2 Delivery O2 Flow Rate FiO2 12/04/18 07:56 Nasal Cannula 2.0 28 12/04/18 07:54 57 18 99 Nasal Cannula 2.0 28 12/04/18 04:00 61 12/04/18 04:00 98.3 75 18 132/64 (86) 95 75 12/04/18 00:24 70 18 96 Nasal Cannula 2.0 28 12/04/18 00:11 68 20 87 Room Air 12/04/18 00:00 68 12/04/18 00:00 98.4 69 18 134/70 (91) 92 69 12/03/18 21:00 Nasal Cannula 3.0 12/03/18 20:00 66 12/03/18 20:00 98.2 76 18 122/65 (84) 95 12/03/18 19:54 73 16 94 Nasal Cannula 2.0 28 12/03/18 19:46 64 18 90 Room Air 12/03/18 16:00 73 12/03/18 16:00 98.4 73 18 134/76 (95) 95 12/03/18 13:20 69 18 97 Nasal Cannula 2.0 28 12/03/18 13:10 74 16 89 Room Air 12/03/18 12:00 69 12/03/18 12:00 97.0 69 18 134/68 (90) 96 12/03/18 09:00 Nasal Cannula 3.0 Intake and Output 12/03/18 12/04/18 18:59 06:59 Intake Total 150 ml 200 ml Output Total 1 ml Balance 149 ml 200 ml Intake Oral 150 ml 200 ml Output Urine Total 1 ml # Voids 3 # Bowel Movements 1 1 Laboratory Tests 12/04/18 05:30: White Blood Count 4.3L, Red Blood Count 3.64L, Hemoglobin 11.2L, Hematocrit 34.1L, Mean Corpuscular Volume 94, Mean Corpuscular Hemoglobin 30.8, Mean Corpuscular Hemoglobin Concent 32.9, Red Cell Distribution Width 17.9H, Platelet Count 86L, Mean Platelet Volume 6.4L, Neutrophils (%) (Auto) , Lymphocytes (%) (Auto) , Monocytes (%) (Auto) , Eosinophils (%) (Auto) , Basophils (%) (Auto) , Differential Total Cells Counted 100, Neutrophils % ( Manual) 62, Lymphocytes % (Manual) 27, Monocytes % (Manual) 11H, Eosinophils % ( Manual) 0, Basophils % (Manual) 0, Band Neutrophils 0, Platelet Estimate DecreasedL, Platelet Morphology Normal, Anisocytosis 1+, Sodium Level 140, Potassium Level 4.0, Chloride Level 108H, Carbon Dioxide Level 26, Anion Gap 6, Blood Urea Nitrogen 27H, Creatinine 1.0, Estimat Glomerular Filtration Rate 56.2 , Glucose Level 87, Calcium Level 8.5 Height (Feet): 5 Height (Inches): 1.00 Weight (Pounds): 147 Objective General Appearance: no apparent distress, alert EENT: PERRL/EOMI, normal ENT inspection Neck: non-tender, normal alignment Cardiovascular: normal rate, regular rhythm Respiratory/Chest: decreased breath sounds Abdomen: non tender, soft Edema: no edema noted Generalized Neurologic: alert, oriented x 3 Skin: normal pigmentation Lion Doherty Dec 04, 2018 08:49
--- NOTE | 2018-12-04 09:00 | NUR ---
Patient refused morning medications at 9:00am and insisted to take her medications between 10:30 and 11:00 am. Notified pharmacy and medications were re-timed for 10:30am by pharmacist. All AM medications administered and patient tolerated well.
--- NOTE | 2018-12-04 09:08 | Pulmonology Progress Note ---
Assessment/Plan Assessment/Plan IMPRESSION: 1. Borderline troponin. 2. Question of pulmonary edema. 3. Chest pain. 4. Shortness of breath. 5. History of diarrhea. 6. History of previous narcotic addiction. 7. History of FMF 8. Possible pneumonia RLL DISCUSSION: Await 2D echo. Continue home medications. Pain mangement followup. I will follow carefully. Now IV dilaudid Added abx Subjective Interval Events: No new events Constitutional: Reports: no symptoms HEENT: Repors: no symptoms Respiratory: Reports: no symptoms Cardiovascular: Reports: no symptoms Gastrointestinal/Abdominal: Reports: no symptoms Allergies: Coded Allergies: DIPHENHYDRAMINE (Verified Allergy, Severe, 05/19/15) GENERAL STIFFNESS MORPHINE (Verified Allergy, Unknown, Rash, 11/16/18) Objective Last 24 Hour Vital Signs Date Time Temp Pulse Resp B/P (MAP) Pulse Ox O2 Delivery O2 Flow Rate FiO2 12/04/18 07:56 Nasal Cannula 2.0 28 12/04/18 07:54 57 18 99 Nasal Cannula 2.0 28 12/04/18 04:00 61 12/04/18 04:00 98.3 75 18 132/64 (86) 95 75 12/04/18 00:24 70 18 96 Nasal Cannula 2.0 28 12/04/18 00:11 68 20 87 Room Air 12/04/18 00:00 68 12/04/18 00:00 98.4 69 18 134/70 (91) 92 69 12/03/18 21:00 Nasal Cannula 3.0 12/03/18 20:00 66 12/03/18 20:00 98.2 76 18 122/65 (84) 95 12/03/18 19:54 73 16 94 Nasal Cannula 2.0 28 12/03/18 19:46 64 18 90 Room Air 21 12/03/18 16:00 73 12/03/18 16:00 98.4 73 18 134/76 (95) 95 12/03/18 13:20 69 18 97 Nasal Cannula 2.0 28 12/03/18 13:10 74 16 89 Room Air 21 12/03/18 12:00 69 12/03/18 12:00 97.0 69 18 134/68 (90) 96 Intake and Output 12/03/18 12/04/18 19:00 07:00 Intake Total 150 ml 200 ml Output Total 1 ml Balance 149 ml 200 ml Intake Oral 150 ml 200 ml Output Urine Total 1 ml # Voids 3 # Bowel Movements 1 1 General Appearance: no acute distress HEENT: normocephalic Respiratory/Chest: chest wall non-tender, lungs clear Cardiovascular: normal peripheral pulses, normal rate Microbiology Date/Time Source Procedure Growth Status 12/01/18 16:15 Blood Blood Culture - Preliminary NO GROWTH AFTER 48 HOURS Resulted 12/01/18 16:15 Blood Blood Culture - Preliminary NO GROWTH AFTER 48 HOURS Resulted 12/01/18 20:55 Rectum - Final NO CARBAPENEM-RESISTANT ENTEROBACTERI... Complete 12/01/18 20:55 Rectum VRE Culture - Final Enterococcus Faecium - Vre Complete Laboratory Tests 12/04/18 05:30: White Blood Count 4.3L, Red Blood Count 3.64L, Hemoglobin 11.2L, Hematocrit 34.1L, Mean Corpuscular Volume 94, Mean Corpuscular Hemoglobin 30.8, Mean Corpuscular Hemoglobin Concent 32.9, Red Cell Distribution Width 17.9H, Platelet Count 86L, Mean Platelet Volume 6.4L, Neutrophils (%) (Auto) , Lymphocytes (%) (Auto) , Monocytes (%) (Auto) , Eosinophils (%) (Auto) , Basophils (%) (Auto) , Differential Total Cells Counted 100, Neutrophils % ( Manual) 62, Lymphocytes % (Manual) 27, Monocytes % (Manual) 11H, Eosinophils % ( Manual) 0, Basophils % (Manual) 0, Band Neutrophils 0, Platelet Estimate DecreasedL, Platelet Morphology Normal, Anisocytosis 1+, Sodium Level 140, Potassium Level 4.0, Chloride Level 108H, Carbon Dioxide Level 26, Anion Gap 6, Blood Urea Nitrogen 27H, Creatinine 1.0, Estimat Glomerular Filtration Rate 56.2 , Glucose Level 87, Calcium Level 8.5 Current Medications Medications (Trade) Dose Ordered Sig/Luther Route PRN Reason Start Time Stop Time Status Last Admin Dose Admin Albuterol/ Ipratropium (Albuterol/ Ipratropium) 3 ml Q6HRT HHN 12/02/18 01:00 12/07/18 00:59 12/04/18 00:11 Ceftriaxone Sodium 1 gm/ Dextrose 55 ml @ 110 mls/hr Q24H IVPB 12/03/18 14:00 12/10/18 13:59 12/03/18 14:09 Citalopram Hydrobromide (celeXA) 40 mg DAILY ORAL 12/02/18 09:00 01/01/19 08:59 12/03/18 08:13 Colchicine (Colchicine) 0.6 mg TID ORAL 12/02/18 09:00 01/01/19 08:59 12/03/18 17:38 Ferrous Sulfate (Feosol) 325 mg BID ORAL 12/02/18 09:00 01/01/19 08:59 12/03/18 17:38 Fish Oil (Fish Oil) 1,000 mg TWICE A DAY ORAL 12/02/18 09:00 01/01/19 08:59 12/03/18 17:38 Folic Acid (Folate) 1 mg DAILY ORAL 12/02/18 09:00 01/01/19 08:59 12/03/18 08:11 Gabapentin (Neurontin) 600 mg BID ORAL 12/02/18 09:00 01/01/19 08:59 12/03/18 17:38 Hydromorphone HCl (Dilaudid) 2 mg Q6H PRN ORAL severe pain 12/03/18 14:15 12/10/18 14:14 12/04/18 04:04 Loperamide HCl (Imodium) 2 mg Q6H PRN ORAL Diarrhea 12/01/18 23:30 12/31/18 23:29 12/03/18 20:40 Lorazepam (Ativan) 1 mg Q6H PRN ORAL Agitation 12/01/18 23:30 12/08/18 23:29 12/03/18 20:40 Mesalamine (Asacol) 800 mg Q12HR ORAL 12/02/18 09:00 01/01/19 08:59 12/03/18 20:40 Ondansetron HCl (Zofran ODT) 4 mg Q4H PRN SL Nausea & Vomiting 12/02/18 00:30 12/31/18 23:29 12/03/18 01:11 Pantoprazole (Protonix) 40 mg DAILY ORAL 12/02/18 09:00 01/01/19 08:59 12/03/18 08:12 Potassium Chloride (K-Dur) 10 meq TWICE A DAY ORAL 12/02/18 09:00 01/01/19 08:59 12/03/18 17:38 Pravastatin Sodium (Pravachol) 20 mg BEDTIME ORAL 12/02/18 21:00 01/01/19 20:59 12/03/18 20:41 Prednisone (predniSONE) 15 mg DAILY ORAL 12/02/18 09:00 01/01/19 08:59 12/03/18 08:11 Zolpidem Tartrate (Ambien) 10 mg HSPRN PRN ORAL Insomnia 12/02/18 01:30 12/09/18 01:29 12/03/18 23:09 Norm Herrmann MD Dec 04, 2018 09:08
--- NOTE | 2018-12-04 09:38 | NUR ---
NURSE NOTES: Marguerite Flynn from lab called to report that patient is positive for VRE rectum, will notify MD and all isolation protocol carried out. Will continue to monitor patient.
--- NOTE | 2018-12-04 09:39 | NUR ---
CASE MANAGEMENT:REVIEW 12/04/18 SI: CHEST PAIN W/BORDERLINE TROPONIN POSSIBLE RLL PNA 97.2 63 20 133/74 98% ON 2L/NC IS: IV ROCEPHIN Q24 IV DILAUDID/NS Q6HRS PRN COLCHICINE PO TID FOLATE PO QD NEURONTIN PO BID PREDNISONE PO QD PROTONIX PO QD K-DUR PO BID : TELEMETRY STATUS DCP: FROM [facility] ASSISTED LIVING PLAN: AWAIT 2DECHO CONTINUE HOME MEDICATIONS PAIN MGMT
[2018-12-04] MEDS: Mesalamine 400mg cap ORAL SCH ×2 (10:49→20:15)
[2018-12-04] MEDS: Citalopram Hydrobromide 10mg Tab ORAL SCH (10:49)
[2018-12-04 12:00] VITALS: BP 128/69
[2018-12-04] MEDS: cefTRIAXone 1 GM in D5W 55 ML IVPB SCH (14:20)
--- NOTE | 2018-12-04 14:53 | NUR ---
*-* INSURANCE *-* ALL CLINICALS AND REVIEWS HAVE BEEN FAXED TO: [facility] NELSON P: [phone] *[id number] BLAYNE F: [phone] (FAX ALL CLINICALS)
[2018-12-04 16:00] VITALS: BP 119/73
[2018-12-04] MEDS: Loperamide 2mg cap ORAL PRN (16:09)
--- NOTE | 2018-12-04 19:30 | NUR ---
NURSE NOTES: Received patient from ALEJO Zarate, patient in stable condition, AOx4, denies pain at this time,IV on right forearm G20 and Left hand G22 asymptomatic, intact, patent, bed low&locked, side rails upx2, call light within reach , will continue to monitor and reassess.
--- NOTE | 2018-12-04 19:38 | NUR ---
HAND-OFF: Report given to Heidy DHILLON. Patient is instable condition.
[2018-12-04 20:00] VITALS: BP 132/66
[2018-12-04] MEDS: LORazepam 1mg tab ORAL PRN (20:16)
[2018-12-04] MEDS: Zolpidem 5mg tab ORAL PRN (22:08)
[2018-12-05] VITALS: BP 145/70
[2018-12-05] MEDS: Albuterol/Ipratropium 3ml neb HHN SCH ×3 (01:00→12:25)
[2018-12-05 04:00] VITALS: BP 141/69
--- NOTE | 2018-12-05 07:43 | NUR ---
HAND-OFF: Report given to HongRN, patient in stable condition, plan of care endorsed.
--- NOTE | 2018-12-05 07:56 | NUR ---
NURSE NOTES: Received report from Heidy DHILLON. Pt AOX4 and able to make needs known. No c/o pain. IV site RFA 20G SL and left hand 22G SL intact and asymptomatic. Bed in lowest position and locked. Pt sinus rhythm on monitor. Bed side rails x2 up for safety. No c/o pain at this time. No s/sx of acute distress noted. Will continue to plan of care.
[2018-12-05 08:00] VITALS: BP 124/59
[2018-12-05] MEDS: Mesalamine 400mg cap ORAL SCH (08:49)
--- NOTE | 2018-12-05 09:00 | General Progress Note ---
Assessment/Plan Assessment/Plan: (1) Opioid dependency (2) Familial Mediterranean Fever We will continue Dilaudid D/w Dr. Zee and he concurred. Subjective Date patient seen: Dec 05, 2018 Time patient seen: 07:30 - am Allergies: Coded Allergies: DIPHENHYDRAMINE (Verified Allergy, Severe, 05/19/15) GENERAL STIFFNESS MORPHINE (Verified Allergy, Unknown, Rash, 11/16/18) Subjective Constitutional: Reports: weakness HEENT: Reports: no symptoms Cardiovascular: Reports: no symptoms Respiratory: Reports: no symptoms Gastrointestinal/Abdominal: Reports: no symptoms Genitourinary: Reports: no symptoms Neurologic/Psychiatric: Reports: weakness Endocrine: Reports: no symptoms Hematologic/Lymphatic: Reports: no symptoms Subjective: In bed no signs of pain or distress. Pain has been tolerated on the Dilaudid. No new complaints at this time. Objective Last 24 Hour Vital Signs Date Time Temp Pulse Resp B/P (MAP) Pulse Ox O2 Delivery O2 Flow Rate FiO2 12/05/18 07:46 82 18 100 Nasal Cannula 2.0 28 12/05/18 07:36 59 18 98 Nasal Cannula 2.0 28 12/05/18 04:00 56 12/05/18 04:00 98.6 55 18 141/69 (93) 96 12/05/18 01:04 Nasal Cannula 2.0 28 12/05/18 01:04 Nasal Cannula 2.0 28 12/05/18 00:00 97.7 60 18 145/70 (95) 98 12/05/18 00:00 59 12/04/18 21:00 Nasal Cannula 3.0 12/04/18 20:00 97.8 73 18 132/66 (88) 98 12/04/18 20:00 63 12/04/18 19:02 71 18 96 Nasal Cannula 2.0 28 12/04/18 18:50 66 18 90 Nasal Cannula 2.0 28 12/04/18 16:00 97.1 69 18 119/73 (88) 96 12/04/18 16:00 69 12/04/18 13:28 Nasal Cannula 2.0 28 12/04/18 13:28 Nasal Cannula 2.0 28 12/04/18 12:00 74 12/04/18 12:00 96.8 74 18 128/69 (88) 97 12/04/18 09:00 Nasal Cannula 3.0 Intake and Output 12/04/18 12/05/18 18:59 06:59 Intake Total 720 ml Balance 720 ml Intake Oral 720 ml # Voids 3 2 # Bowel Movements 1 Height (Feet): 5 Height (Inches): 1.00 Weight (Pounds): 147 Objective General Appearance: no apparent distress, alert EENT: PERRL/EOMI, normal ENT inspection Neck: non-tender, normal alignment Cardiovascular: normal rate, regular rhythm Respiratory/Chest: decreased breath sounds Abdomen: non tender, soft Edema: no edema noted Generalized Neurologic: alert, oriented x 3 Skin: normal pigmentation Lion Doherty Dec 05, 2018 09:00
--- NOTE | 2018-12-05 09:38 | NUR ---
CASE MANAGEMENT:REVIEW 12/05/18 SI: CHEST PAIN W/BORDERLINE TROPONIN POSSIBLE RLL PNA. OPIOID DEPENDENCY 98.0 69 18 124/59 95% ON 2L/NC IS: IV ROCEPHIN Q24 DILAUDID 2MG PO Q6HRS PRN COLCHICINE PO TID FOLATE PO QD NEURONTIN PO BID PREDNISONE PO QD PROTONIX PO QD K-DUR PO BID : TELEMETRY STATUS DCP: FROM [facility] ASSISTED LIVING PLAN: PAIN MGMT ~ DC IV DILAUDID AND CHANGE TO PO Addendum: 12/05/18 at 0946 by SHERWIN EVANS LVN LVN PLAN: PROBABLE DISCHARGE BACK TO ASSISTED LIVING TODAY...AWAITING MD'S ARRIVAL
[2018-12-05] MEDS: Citalopram Hydrobromide 10mg Tab ORAL SCH (10:31)
--- NOTE | 2018-12-05 10:32 | Pulmonology Progress Note ---
Assessment/Plan Assessment/Plan IMPRESSION: 1. Borderline troponin. 2. Question of pulmonary edema. 3. Chest pain. 4. Shortness of breath. 5. Diarrhea; will check C diff 6. History of previous narcotic addiction. 7. History of FMF 8. Possible pneumonia RLL DISCUSSION: Await 2D echo. Continue home medications. Pain mangement followup. I will follow carefully. Now on PO dilaudid Subjective Interval Events: Reporing diarrhea Constitutional: Reports: no symptoms HEENT: Repors: no symptoms Respiratory: Reports: no symptoms Cardiovascular: Reports: no symptoms Gastrointestinal/Abdominal: Reports: no symptoms Allergies: Coded Allergies: DIPHENHYDRAMINE (Verified Allergy, Severe, 05/19/15) GENERAL STIFFNESS MORPHINE (Verified Allergy, Unknown, Rash, 11/16/18) Objective Last 24 Hour Vital Signs Date Time Temp Pulse Resp B/P (MAP) Pulse Ox O2 Delivery O2 Flow Rate FiO2 12/05/18 09:00 Nasal Cannula 2.0 12/05/18 08:00 98.0 69 18 124/59 (80) 95 12/05/18 08:00 59 12/05/18 07:46 82 18 100 Nasal Cannula 2.0 28 12/05/18 07:36 59 18 98 Nasal Cannula 2.0 28 12/05/18 04:00 56 12/05/18 04:00 98.6 55 18 141/69 (93) 96 12/05/18 01:04 Nasal Cannula 2.0 28 12/05/18 01:04 Nasal Cannula 2.0 28 12/05/18 00:00 97.7 60 18 145/70 (95) 98 12/05/18 00:00 59 12/04/18 21:00 Nasal Cannula 3.0 12/04/18 20:00 97.8 73 18 132/66 (88) 98 12/04/18 20:00 63 12/04/18 19:02 71 18 96 Nasal Cannula 2.0 28 12/04/18 18:50 66 18 90 Nasal Cannula 2.0 28 12/04/18 16:00 97.1 69 18 119/73 (88) 96 12/04/18 16:00 69 12/04/18 13:28 Nasal Cannula 2.0 28 12/04/18 13:28 Nasal Cannula 2.0 28 12/04/18 12:00 74 12/04/18 12:00 96.8 74 18 128/69 (88) 97 Intake and Output 12/04/18 12/05/18 18:59 06:59 Intake Total 720 ml Balance 720 ml Intake Oral 720 ml # Voids 3 2 # Bowel Movements 1 General Appearance: no acute distress HEENT: normocephalic Respiratory/Chest: chest wall non-tender, lungs clear Cardiovascular: normal peripheral pulses, normal rate Abdomen: normal bowel sounds Current Medications Medications (Trade) Dose Ordered Sig/Luther Route PRN Reason Start Time Stop Time Status Last Admin Dose Admin Albuterol/ Ipratropium (Albuterol/ Ipratropium) 3 ml Q6HRT HHN 12/02/18 01:00 12/07/18 00:59 12/05/18 07:36 Ceftriaxone Sodium 1 gm/ Dextrose 55 ml @ 110 mls/hr Q24H IVPB 12/03/18 14:00 12/10/18 13:59 12/04/18 14:20 Citalopram Hydrobromide (celeXA) 40 mg Q24H ORAL 12/04/18 10:30 01/03/19 10:29 12/05/18 10:31 Colchicine (Colchicine) 0.6 mg TID ORAL 12/02/18 09:00 01/01/19 08:59 12/05/18 08:49 Ferrous Sulfate (Feosol) 325 mg BID ORAL 12/02/18 09:00 01/01/19 08:59 12/05/18 08:49 Fish Oil (Fish Oil) 1,000 mg TWICE A DAY ORAL 12/02/18 09:00 01/01/19 08:59 12/05/18 08:49 Folic Acid (Folate) 1 mg Q24H ORAL 12/04/18 10:30 01/03/19 10:29 12/05/18 10:31 Gabapentin (Neurontin) 600 mg BID ORAL 12/02/18 09:00 01/01/19 08:59 12/05/18 08:49 Hydromorphone HCl (Dilaudid) 2 mg Q6H PRN ORAL severe pain 12/03/18 14:15 12/10/18 14:14 12/04/18 18:43 Loperamide HCl (Imodium) 2 mg Q6H PRN ORAL Diarrhea 12/01/18 23:30 12/31/18 23:29 12/04/18 16:09 Lorazepam (Ativan) 1 mg Q6H PRN ORAL Agitation 12/01/18 23:30 12/08/18 23:29 12/04/18 20:16 Mesalamine (Asacol) 800 mg Q12HR ORAL 12/02/18 09:00 01/01/19 08:59 12/05/18 08:49 Ondansetron HCl (Zofran ODT) 4 mg Q4H PRN SL Nausea & Vomiting 12/02/18 00:30 12/31/18 23:29 12/03/18 01:11 Pantoprazole (Protonix) 40 mg ACBREAKFAST ORAL 12/05/18 06:30 01/04/19 06:29 12/05/18 06:29 Potassium Chloride (K-Dur) 10 meq TWICE A DAY ORAL 12/02/18 09:00 01/01/19 08:59 12/05/18 08:49 Pravastatin Sodium (Pravachol) 20 mg BEDTIME ORAL 12/02/18 21:00 01/01/19 20:59 12/04/18 20:15 Prednisone (predniSONE) 15 mg Q24H ORAL 12/04/18 10:30 01/03/19 10:29 12/05/18 10:30 Zolpidem Tartrate (Ambien) 10 mg HSPRN PRN ORAL Insomnia 12/02/18 01:30 12/09/18 01:29 12/04/18 22:08 Norm Herrmann MD Dec 05, 2018 10:32
[2018-12-05] MEDS ORDERED: METRONIDAZOLE250 MG ORAL (10:45)
[2018-12-05] MEDS ORDERED: HYDROmorphone ORAL (10:45)
[2018-12-05] MEDS: Loperamide 2mg cap ORAL PRN (10:47)
--- NOTE | 2018-12-05 10:50 | NUR ---
NURSE NOTES: Dr. Herrmann came and ordered the patient to discharge today to [facility] where the the patient care from. VRE rectum colonized and per MD, the pt having diarrhea due to chronic colitis.
[2018-12-05] MEDS: HYDROmorphone 2mg tab ORAL PRN (11:27)
[2018-12-05 12:00] VITALS: BP 142/78
--- NOTE | 2018-12-05 13:04 | NUR ---
*-* INSURANCE *-* ALL CLINICALS AND REVIEWS HAVE BEEN FAXED TO: [facility]ION NELSON P: [phone] *[id number] BLAYNE F: [phone] (FAX ALL CLINICALS)
[2018-12-05] MEDS: cefTRIAXone 1 GM in D5W 55 ML IVPB SCH (14:33)
--- NOTE | 2018-12-05 15:11 | NUR ---
Discharge: Patient is being discharged from medical care to [facility] now. Awake, alert and oriented x4. BLS ambulance personnels came and report gave to them. After care instructions, including referral to community resources were given. Patient verbalized understanding of After care instructions; at this time patient does not request medications, equipment. The patient states that she has home oxygen. She will discharge O2 2LPM via [place]. atient signed patient consent in the medical record for patient destination upon discharge. All medical devices such as IV and ID band, court recording monitor were removed. Patient discharged with juanito with 2EMTS with all personal belongings and discharge Rx with Narcan, Dildiid, and Marquise.
--- NOTE | 2018-12-06 11:25 | Discharge Summary ---
Discharge Summary Discharge Summary _ DATE OF ADMISSION: 12/01/2018 DATE OF DISCHARGE: 12/05/2018 DISCHARGED BY: Dr Herrmann REASON FOR ADMISSION: 63 years old female, from the assisted living, with past medical history of hypertension, COPD, prior narcotic addiction, chronic pain, history of familial Mediterranean fever, presented to emergency department with multiply complaints, including generalized weakness , shortness of breath, and diarrhea. She denied fever and chills. She denied chest pain. She reported cough. Upon evaluation laboratory work-up revealed no leukocytosis , stable hemoglobin and hematocrit. Creatinine 1.5. BUN 28. Pro BNP 6207. Troponin -0.023. EKG revealed sinus rhythm, no acute ischemic changes. Chest x-ray revealed reticular and nodular interstitial disease bilaterally as well as airspace opacities on the right, cardiomegaly and interstitial congestion. Patient was hypotensive on arrival with systolic in 90th. Blood pressure improved with small fluid bolus. In ED patient received IV steroid, empiric antibiotic, and provided with bronchodilator treatment via hand held nebulizing therapy. Patient subsequently admitted to telemetry floor for further management. CONSULTANTS: pain specialist Dr. Zee [facility]: Patient admitted to telemetry floor. Echocardiogram revealed preserved ejection fraction of 60%. No evidence of left ventricular hypertrophy. No evidence of wall motion abnormality. Telemetry demonstrated sinus rhythm and sinus bradycardia( in high 50th), no acute ischemic changes. Supplemental oxygen provided and titrated to keep pulse oximetry above 92%. Bronchodilator therapy provided as needed. Patient was on oral steroids. Empiric antibiotic provided for possible pneumonia. Blood cultures were negative. Stool for C. difficile was negative. GI prophylaxis provided. Symptomatic treatment provided. Home medication resumed. Pain management provided as per pain specialist recommendation. Patient clinically stabilized and was ready for transfer back to senior living facility for continuation of care. FINAL DIAGNOSES: COPD Possible pneumonia Shortness of breath Possible pulmonary edema Diarrhea/ stool C. difficile negative Opioid dependency History of familial Mediterranean fever DISCHARGE MEDICATIONS: See Medication Reconciliation list. DISCHARGE INSTRUCTIONS: Patient was discharged to assisted living. Follow-up with medical doctor at the facility. I have been assigned to dictate discharge summary for this account. I was not involved in the patient's management. Roxanna Mcdonough NP Dec 06, 2018 11:25
--- NOTE | 2018-12-06 14:07 | NUR ---
*-* INSURANCE *-* DISCHARGE SUMMARY HAS BEEN FAXED TO: [facility]ELSON P: [phone] *[id number] BLAYNE F: [phone] (FAX ALL CLINICALS)
== END 2018-12-05 15:11 | disposition home or self-care (01) | DRG 140 ==
LOC: EDBD 15:37 → EMR 16:05 → 2E 20:38 → EDBEDREQ 20:51 → 2E 12-03 14:48
DX: J44.9 Chronic obstructive pulmonary disease, unspecified (principal); J18.9 Pneumonia, unspecified organism; J81.1 Chronic pulmonary edema; I95.9 Hypotension, unspecified; M04.1 Periodic fever syndromes; F11.20 Opioid dependence, uncomplicated; Z88.6 Allergy status to analgesic agent; Z88.8 Allergy status to other drugs, medicaments and biological substances; I10 Essential (primary) hypertension; R19.7 Diarrhea, unspecified
CPT/HCPCS: 36415; 71045; 80048; 80053; 81003; 82550; 82553; 82962; 83880; 84484; 85007; 85025; 87040; 87081; 87324; 93005; 93306; 94640; 96361; 96365; 96366; 96367; 96375; 99285; J7620

== ENCOUNTER 2019-01-05 13:24 | Emergency (ER) | payer MEDICAID ==
[~2019-01-05] VITALS: Ht 162.6 cm; Wt 68.0 kg
[~2019-01-05 13:24] MED LIST changes: +ALBUTEROL2.5 MG/3 M INH; +BUPRENORP-NALO1 EAC1 SL; +CEPHALEXIN500 MG ORAL; +HYDROmorphone ORAL; +METRONIDAZOLE250 MG ORAL; +PREDNISONE5 M4 PO
[2019-01-05] MEDS ORDERED: CEPHALEXIN500 MG ORAL (13:32)
[2019-01-05] MEDS ORDERED: HYDROMORPHONE HC2 M1 ORAL (13:32)
[2019-01-05 13:41] VITALS: BP_SYST 128; BP_SYST 28; BP_DIAS 63
[2019-01-05] MEDS ORDERED: Albuterol/Ipratropium 3ml neb HHN ONE (13:45)
[2019-01-05] MEDS ORDERED: Solu-MEDROL 125mg Inj IVP ONE (13:45)
--- NOTE | 2019-01-05 13:45 | Emergency Room Report ---
History of Present Illness General Chief Complaint: Chest Pain Source: Medical Record Present Illness HPI She is a 63-year-old female presents after increased chest discomfort. Patient reports being short of breath for the past 4 days. She had prior history of familial Mediterranean fever as well as COPD. She reports having prior history of thrombocytopenia. She reports having increased difficulty with respirations. She had previously had a cholecystectomy. She had sustained a right lower extremity fracture on 12/20/2018.Patient had increased shortness of breath worse with supine position. She had a productive cough associated with sore throat.She denies any definite fever. Allergies: Coded Allergies: DIPHENHYDRAMINE (Verified Allergy, Severe, 05/19/15) GENERAL STIFFNESS MORPHINE (Verified Allergy, Unknown, Rash, 11/16/18) Patient History Reviewed Nursing Documentation: PMH: Agreed; PSxH: Agreed Nursing Documentation-PMH Past Medical History: No History, Except For Hx Cardiac Problems: Yes Hx Hypertension: Yes Hx COPD: Yes Hx Cancer: No Hx Gastrointestinal Problems: Yes Hx Neurological Problems: No Review of Systems All Other Systems: negative except mentioned in HPI Physical Exam Vital Signs Date Time Temp Pulse Resp B/P (MAP) Pulse Ox O2 Delivery O2 Flow Rate FiO2 01/05/19 13:24 98.4 104 18 120/62 (81) 98 Nasal Cannula 2.0 Sp02 EP Interpretation: reviewed, normal General Appearance: normal inspection, alert, GCS 15, Chronically Ill Head: atraumatic ENT: normal ENT inspection, hearing grossly normal, normal voice Neck: normal inspection, supple, no bony tend Respiratory: normal inspection, no respiratory distress, no retraction, wheezing Cardiovascular #1: regular rate, rhythm, no edema Gastrointestinal: normal inspection, normal bowel sounds, non tender, soft, no guarding, no hernia Genitourinary: no CVA tenderness Musculoskeletal: back normal, normal range of motion, other - right lower extremity in splint Neurologic: normal inspection, alert, responsive, speech normal Psychiatric: normal inspection, judgement/insight normal, mood/affect normal Skin: no rash Medical Decision Making Diagnostic Impression: Primary Impression: FMF (familial Mediterranean fever) Additional Impression: COPD exacerbation ER Course Patient presented for shortness of breath. Differential included but was not limited to anemia, pneumonia, pneumothorax, myocardial infarction, pericardial effusion, congestive heart failure, acidosis. Because of complexity of patient' s case laboratory tests and imaging studies were ordered.Patient is given breathing treatments as well as IV Lasix. EKG interpreted by me showed sinus tachycardia with a rate of [address] or T wave changes. Patient was noted to have recent fracture to her right lower extremity. Patient does have some risk factor for pulmonary embolism but given the patient's prior history of thrombocytopenia imaging studies will be deferred.Patient was discussed with Dr. Guy who agreed to accept the patient. Laboratory Tests Test 01/05/19 13:35 White Blood Count 6.7 K/UL (4.8-10.8) Red Blood Count 3.50 M/UL (4.20-5.40) L Hemoglobin 11.2 G/DL (12.0-16.0) L Hematocrit 32.8 % (37.0-47.0) L Mean Corpuscular Volume 94 FL (80-99) Mean Corpuscular Hemoglobin 31.9 PG (27.0-31.0) H Mean Corpuscular Hemoglobin Concent 34.0 G/DL (32.0-36.0) Red Cell Distribution Width 16.1 % (11.6-14.8) H Platelet Count 111 K/UL (150-450) L Mean Platelet Volume 7.8 FL (6.5-10.1) Neutrophils (%) (Auto) 76.7 % (45.0-75.0) H Lymphocytes (%) (Auto) 13.3 % (20.0-45.0) L Monocytes (%) (Auto) 8.2 % (1.0-10.0) Eosinophils (%) (Auto) 1.1 % (0.0-3.0) Basophils (%) (Auto) 0.6 % (0.0-2.0) Sodium Level 143 MMOL/L (136-145) Potassium Level 3.4 MMOL/L (3.5-5.1) L Chloride Level 106 MMOL/L (98-107) Carbon Dioxide Level 29 MMOL/L (21-32) Anion Gap 8 mmol/L (5-15) Blood Urea Nitrogen 6 mg/dL (7-18) L Creatinine 0.8 MG/DL (0.55-1.30) Estimate Glomerular Filtration Rate > 60 mL/min (>60) Glucose Level 121 MG/DL (74-106) H Lactic Acid Level 1.40 mmol/L (0.4-2.0) Calcium Level 8.6 MG/DL (8.5-10.1) Total Bilirubin 0.9 MG/DL (0.2-1.0) Aspartate Amino Transferase (AST) 23 U/L (15-37) Alanine Aminotransferase (ALT) 12 U/L (12-78) Alkaline Phosphatase 161 U/L (46-116) H Total Creatine Kinase 14 U/L (26-308) L Creatine Kinase MB < 0.5 NG/ML (0.0-3.6) Creatine Kinase MB Relative Index 3.5 Troponin I 0.000 ng/mL (0.000-0.056) Pro-B-Type Natriuretic Peptide 1368 pg/mL (0-125) H Total Protein 5.9 G/DL (6.4-8.2) L Albumin 2.7 G/DL (3.4-5.0) L Globulin 3.2 g/dL Albumin/Globulin Ratio 0.8 (1.0-2.7) L EKG Diagnostic Results Rate: tachycardiac Rhythm: NSR ST Segments: no acute changes Last Vital Signs Date Time Temp Pulse Resp B/P (MAP) Pulse Ox O2 Delivery O2 Flow Rate FiO2 01/05/19 13:24 98.4 104 18 120/62 (81) 98 Nasal Cannula 2.0 Status: improved Disposition: ADMITTED INPATIENT Condition: Stable Enrique Boyd MD Jan 05, 2019 13:45
--- NOTE | 2019-01-05 13:50 | NUR ---
ED Nurse Note: Called Lee RT for breathing treatment.
--- NOTE | 2019-01-05 13:50 | NUR ---
ED Nurse Note: Pt JULIOCESARCrodelia from [facility] due to sharp chest pain and SOB x 4 days, progressively getting worse. Pain gets worse with inspiration, coughing. SAT 82% RA upon arrival. Pt is usually on 2L [place] oxygen at facility. R lower leg splint applied prior to arrival, stated that she "broke her leg on 12/20/18" but no surgery. AOx4, HR >100 at this time, ERMD aware. Will cont to monitor.
[2019-01-05 13:56] LABS: BASOPHILS % (AUTO) 0.6 % (0.0-2.0); EOSINOPHILS % (AUTO) 1.1 % (0.0-3.0); HEMATOCRIT 32.8 % (37.0-47.0); HEMOGLOBIN 11.2 G/DL (12.0-16.0); LYMPHOCYTES % (AUTO) 13.3 % (20.0-45.0); MEAN CORPUSCULAR VOLUME 94 FL (80-99); MONOCYTES % (AUTO) 8.2 % (1.0-10.0); NEUTROPHILS % (AUTO) 76.7 % (45.0-75.0); PLATELET COUNT 111 K/UL (150-450); RED CELL DISTRIBUTION WIDTH 16.1 % (11.6-14.8); WHITE BLOOD COUNT 6.7 K/UL (4.8-10.8)
--- NOTE | 2019-01-05 13:56 | NUR ---
ED Nurse Note: RT at the bed side for breathing treatment.
[2019-01-05 13:58] LABS: ANION GAP 8 mmol/L (5-15); BLOOD UREA NITROGEN 6 mg/dL (7-18); CALCIUM 8.6 MG/DL (8.5-10.1); CARBON DIOXIDE 29 MMOL/L (21-32); CHLORIDE 106 MMOL/L (98-107); CREATININE 0.8 MG/DL (0.55-1.30); POTASSIUM 3.4 MMOL/L (3.5-5.1); SODIUM 143 MMOL/L (136-145)
--- NOTE | 2019-01-05 14:10 | NUR ---
ED Nurse Note: RT reports pt is being "jittery" while receiving breathing treatment. Breathing treatment stopped. Dr Boyd notified.
[2019-01-05 14:13] LABS: ALANINE AMINOTRANSFERASE 12 U/L (12-78); ALBUMIN 2.7 G/DL (3.4-5.0); ALBUMIN/GLOBULIN RATIO 0.8 (1.0-2.7); ALKALINE PHOSPHATASE 161 U/L (46-116); ASPARTATE AMINO TRANSFERASE 23 U/L (15-37); BILIRUBIN,TOTAL 0.9 MG/DL (0.2-1.0); CKMB < 0.5 NG/ML (0.0-3.6); CREATINE KINASE 14 U/L (26-308)
--- NOTE | 2019-01-05 14:13 | NUR ---
ED Nurse Note: Pt states she feels nauseaus and asking for pain reliever for her RLE pain. Dr Boyd notified.
[2019-01-05] MEDS ORDERED: HYDROmorphone 1mg/ml Carpuject IVP ONE ×2 (14:15→20:30)
[2019-01-05 15:00] VITALS: BP 133/70
[2019-01-05 16:00] VITALS: BP 121/78
--- NOTE | 2019-01-05 16:36 | NUR ---
ED Nurse Note: Pt is aware that she is going to be transferred to [facility]. Consent signed.
[2019-01-05 18:03] VITALS: BP 138/74
--- NOTE | 2019-01-05 19:10 | NUR ---
HAND-OFF: Report given to Tyler DHILLON.
--- NOTE | 2019-01-05 20:45 | NUR ---
ED Nurse Note: received report from maureen rodriguez. patient resting in bed with nad. ao4. vss. nc 2L. respirations even and unlabored. pt aware of pending transfer.
--- NOTE | 2019-01-05 20:53 | NUR ---
ED Nurse Note: report given to edwin from [facility]. pt to be admitted to [facility] under md rylie
[2019-01-05 21:17] VITALS: BP 134/72
[2019-01-05 21:30] VITALS: BP 134/72
--- NOTE | 2019-01-05 21:30 | NUR ---
ED Nurse Note: report given to [facility]. patient left via gurney with all belongings. iv intact and patent.
--- NOTE | 2019-01-06 11:16 | Diagnostic Imaging Report ---
Indication: Dyspnea Comparison: 12/01/2018 A single view chest radiograph was obtained. Findings: Pulmonary vascular congestion demonstrated with the prominent cephalized pulmonary vessels, hilar vascular prominence and cardiomegaly. No pleural effusion seen. Lung volumes are low. Bones are osteopenic. IMPRESSION: Pulmonary vascular congestion
--- NOTE | 2019-01-06 19:52 | Cardiology Report ---
APPROVED REPORT EKG Measurement Heart [id number] Sinus tachycardia Nonspecific T wave abnormality Abnormal ECG
== END 2019-01-05 21:30 | disposition short-term general hospital (02) ==
LOC: EDBD 13:24 → EMR 14:03
DX: J44.1 Chronic obstructive pulmonary disease with (acute) exacerbation (principal); M04.1 Periodic fever syndromes; R07.9 Chest pain, unspecified; Z88.6 Allergy status to analgesic agent; Z88.8 Allergy status to other drugs, medicaments and biological substances; I10 Essential (primary) hypertension
CPT/HCPCS: 36415; 71045; 80053; 82550; 82553; 83605; 83880; 84484; 85025; 87040; 87081; 93005; 94640; 94664; 96374; 96375; 96376; J1170; J1940; J2405; J2930; Z7502; 99285; J7620

== ENCOUNTER 2019-03-11 18:42 | Emergency (ER) | payer MEDICAID ==
[~2019-03-11] VITALS: Ht 165.1 cm; Wt 68.0 kg
[~2019-03-11 18:42] MED LIST changes: +HYDROMORPHONE HC2 M1 ORAL
[2019-03-11] MEDS ORDERED: Omnipaque-300 100ml vial INJ PRN (18:45)
[2019-03-11 19:00] VITALS: BP 120/65
--- NOTE | 2019-03-11 19:00 | NUR ---
ED Nurse Note: Patient was brought in by XIMENA from [facility] due diarrhea for the past 8 days. Patient presented weak, dehydrated, AAO x4, VSS at this time, skin is warm to touch. Patient is complaining of upper abdominal pain 8/10.
--- NOTE | 2019-03-11 19:05 | NUR ---
ED Nurse Note: Patient's O2 sat went down 76%, placed pt on 2L via NC.
--- NOTE | 2019-03-11 19:16 | Emergency Room Report ---
History of Present Illness General Chief Complaint: Diarrhea Source: Patient, Medical Record Present Illness HPI 63-year-old female history of hypertension, familial Mediterranean fever, copd, recent repair of right leg, presents with mild abdominal cramps x2 days up to 6 episodes of watery diarrhea no blood, no aggravating relieving factors severity is moderate, constant patient endorses some chills feeling lightheaded and dehydrated, no nausea no vomiting no dysuria patient presents for evaluation Allergies: Coded Allergies: DIPHENHYDRAMINE (Verified Allergy, Severe, 05/19/15) GENERAL STIFFNESS MORPHINE (Verified Allergy, Unknown, Rash, 11/16/18) Patient History Past Medical History: see triage record Last Menstrual Period: n/a Reviewed Nursing Documentation: PMH: Agreed; PSxH: Agreed Nursing Documentation-PMH Past Medical History: No History, Except For Hx Cardiac Problems: Yes Hx Hypertension: Yes Hx COPD: Yes Hx Cancer: No Hx Gastrointestinal Problems: Yes Hx Neurological Problems: No Review of Systems All Other Systems: negative except mentioned in HPI Physical Exam Vital Signs Date Time Temp Pulse Resp B/P (MAP) Pulse Ox O2 Delivery O2 Flow Rate FiO2 03/11/19 18:44 98.4 68 18 113/66 (82) 98 Room Air Sp02 EP Interpretation: reviewed, normal General Appearance: well appearing, no apparent distress, alert Head: normocephalic, atraumatic Eyes: bilateral eye PERRL, bilateral eye EOMI ENT: uvula midline, dry mucus membranes Neck: supple, thyroid normal, supple/symm/no masses Respiratory: lungs clear, no respiratory distress, no retraction, no accessory muscle use Cardiovascular #1: normal peripheral pulses, regular rate, rhythm, no edema, no gallop, no murmur Gastrointestinal: soft, no guarding, no rebound, tenderness - generalized abdominal pain Musculoskeletal: normal inspection Neurologic: alert, oriented x3 Psychiatric: mood/affect normal Skin: no rash, warm/dry Medical Decision Making Diagnostic Impression: Primary Impression: Dehydration Additional Impressions: Colitis Diarrhea Qualified Codes: R19.7 - Diarrhea, unspecified ER Course 63-year-old female presents with abdominal pain, differential diagnosis includes colitis, infectious, appendicitis, diverticulitis Spoke with Dr. Hugo golden who will accept patient 8:08pm Patient rehydrated with 2 L, patient has dry mucous membranes We will admit patient to hospital for continued hydration and supportive care Laboratory Tests Test 11/26/19 19:05 White Blood Count 3.9 K/UL (4.8-10.8) L Red Blood Count 4.45 M/UL (4.20-5.40) Hemoglobin 14.1 G/DL (12.0-16.0) Hematocrit 38.0 % (37.0-47.0) Mean Corpuscular Volume 86 FL (80-99) Mean Corpuscular Hemoglobin 31.7 PG (27.0-31.0) H Mean Corpuscular Hemoglobin Concent 37.1 G/DL (32.0-36.0) H Red Cell Distribution Width 13.6 % (11.6-14.8) Platelet Count 90 K/UL (150-450) L Mean Platelet Volume 8.7 FL (6.5-10.1) Neutrophils (%) (Auto) % (45.0-75.0) Lymphocytes (%) (Auto) % (20.0-45.0) Monocytes (%) (Auto) % (1.0-10.0) Eosinophils (%) (Auto) % (0.0-3.0) Basophils (%) (Auto) % (0.0-2.0) Neutrophils % (Manual) Pending Lymphocytes % (Manual) Pending Platelet Estimate Pending Platelet Morphology Pending Prothrombin Time 10.6 SEC (9.30-11.50) Prothrombin Time INR 1.0 (0.9-1.1) PTT 25 SEC (23-33) Sodium Level 143 MMOL/L (136-145) Potassium Level 4.3 MMOL/L (3.5-5.1) Chloride Level 106 MMOL/L (98-107) Carbon Dioxide Level 30 MMOL/L (21-32) Anion Gap 7 mmol/L (5-15) Blood Urea Nitrogen 28 mg/dL (7-18) H Creatinine 1.1 MG/DL (0.55-1.30) Estimate Glomerular Filtration Rate 50.3 mL/min (>60) Glucose Level 90 MG/DL (74-106) Lactic Acid Level 1.00 mmol/L (0.4-2.0) Calcium Level 9.3 MG/DL (8.5-10.1) Phosphorus Level 4.6 MG/DL (2.5-4.9) Magnesium Level 1.9 MG/DL (1.8-2.4) Total Bilirubin 0.6 MG/DL (0.2-1.0) Aspartate Amino Transferase (AST) 52 U/L (15-37) H Alanine Aminotransferase (ALT) 47 U/L (12-78) Alkaline Phosphatase 190 U/L (46-116) H Creatine Kinase MB 0.8 NG/ML (0.0-3.6) Troponin I 0.003 ng/mL (0.000-0.056) Pro-B-Type Natriuretic Peptide 1328 pg/mL (0-125) H Total Protein 6.8 G/DL (6.4-8.2) Albumin Pending Globulin Pending Lipase 220 U/L (73-393) EKG Diagnostic Results EKG Time: 18:59 EP Interpretation: NSR, rate 68, QTc 480, no acute ST elevations, normal axis Rhythm Strip Diag. Results Rhythm Strip Time: 19:16 EP Interpretation: yes Rate: 65 Rhythm: NSR, no PVC's, no ectopy Chest X-Ray Diagnostic Results Chest X-Ray Diagnostic Results : Chest X-Ray Ordered: Yes # of Views/Limited/Complete: 1 View Indication: Other - preop EP Interpretation: Yes Interpretation: no consolidation, no effusion, no pneumothorax, no acute cardiopulmonary disease Impression: No acute disease Electronically Signed by: Jasvir Ramirez MD CT/MRI/US Diagnostic Results CT/MRI/US Diagnostic Results : Impression Patient : JOCELYNE BOWSER Referring Physician: Jasvir Ramirez MD ID Number: [id number] Service Date: 03/11/19 : 1955 Report Date: 03/11/19 Gender: F Accession No.: [id number] Location: [facility] Procedure: CT Abdomen Pelvis w/Contrast CT ABDOMEN + PELVIS With Contrast: A normal appendix. No obstruction. No mucosal thickening along the GI tract. Trace nonspecific free fluid around the spleen and in the pelvis. Small pericardial effusion, similar to the prior on 11/16/2018. Status post cholecystectomy. Unchanged moderate splenomegaly. Multiple cysts and cortical scarring in the kidneys. Dictated By: George Israel M.D. Electronically Signed By: Signed Date/Time CC: Last Vital Signs Date Time Temp Pulse Resp B/P (MAP) Pulse Ox O2 Delivery O2 Flow Rate FiO2 03/11/19 18:44 98.4 68 18 113/66 (82 98 Room Air Disposition: XFER SHT-TRM [facility] Condition: Stable Jasvir Ramirez MD Mar 11, 2019 19:16
[2019-03-11 19:25] LABS: HEMOGLOBIN 14.1 G/DL (12.0-16.0); MEAN CORPUSCULAR VOLUME 86 FL (80-99); PLATELET COUNT 90 K/UL (150-450); RED BLOOD COUNT 4.45 M/UL (4.20-5.40); RED CELL DISTRIBUTION WIDTH 13.6 % (11.6-14.8); WHITE BLOOD COUNT 3.9 K/UL (4.8-10.8)
[2019-03-11 19:31] LABS: ANION GAP 7 mmol/L (5-15); BLOOD UREA NITROGEN 28 mg/dL (7-18); CALCIUM 9.3 MG/DL (8.5-10.1); CARBON DIOXIDE 30 MMOL/L (21-32); CHLORIDE 106 MMOL/L (98-107); CREATININE 1.1 MG/DL (0.55-1.30); POTASSIUM 4.3 MMOL/L (3.5-5.1); SODIUM 143 MMOL/L (136-145)
[2019-03-11] MEDS ORDERED: XOPENEX0.63 MG/3 HHN (19:39)
[2019-03-11] MEDS ORDERED: WIXELA 250-501 EACH IH (19:39)
[2019-03-11] MEDS ORDERED: NARCAN4 MG NS (19:39)
[2019-03-11] MEDS ORDERED: HYDRALAZINE HCL25 M1 ORAL (19:39)
[2019-03-11] MEDS ORDERED: LOVENOX10 M4 SUBQ (19:39)
[2019-03-11] MEDS ORDERED: Hydromorphone 0.5mg/0.5ml inj IVP ONE ×2 (19:45→23:00)
[2019-03-11 19:46] LABS: ALANINE AMINOTRANSFERASE 47 U/L (12-78); ALKALINE PHOSPHATASE 190 U/L (46-116); ASPARTATE AMINO TRANSFERASE 52 U/L (15-37); BILIRUBIN,TOTAL 0.6 MG/DL (0.2-1.0); CKMB 0.8 NG/ML (0.0-3.6); PHOSPHORUS 4.6 MG/DL (2.5-4.9)
[2019-03-11 20:12] VITALS: BP 128/62
--- NOTE | 2019-03-11 20:30 | Diagnostic Imaging Report ---
Clinical Indication: Abdominal pain and cramps, 6 episodes of watery diarrhea, 2 days of mild abdominal cramps Technique: No oral contrast utilized, per emergency room physician request IV administration nonionic contrast. Venous phase spiral acquisition obtained through the abdomen and pelvis. Multiplanar reconstructions were generated. Total dose length product 1005 mGycm. CTDIvol(s) 14 mGy. Dose reduction achieved using automated exposure control Comparison: November 16, 2018 Findings: The appendix is normal. There is no evidence of colonic diverticulosis or diverticulitis. No small bowel distention. No free or loculated intraperitoneal gas or fluid. Gastric mucosa appears somewhat prominent, probably artifact of under distention, appearance unchanged from the previous study. The duodenum and distal esophagus are unremarkable. Again noted is prior cholecystectomy. Again noted is pneumobilia. There is a subcentimeter low-attenuation lesion in the dome of segment 8 of the liver, unchanged. The pancreas is unremarkable. The spleen is enlarged, measuring 17 cm long axis dimension. Multiple subcentimeter low-attenuation lesions are again seen scattered throughout the spleen. A small amount of fluid is seen around the upper pole of the spleen, appearance unchanged. The adrenals are unremarkable. The kidneys demonstrate diffuse lobulated contour. There are multiple renal cysts bilaterally, as well as multiple subcentimeter low-attenuation renal lesions which are too small to characterize. There is mild right hydronephrosis, but no hydroureter, appearance similar to the previous study. No retroperitoneal or mesenteric mass or adenopathy. No pelvic mass or adenopathy. Small amount of fluid is seen in the pelvis, similar to previous. The uterus and adnexal structures appear unremarkable. There is a right hip prosthesis again demonstrated. The included lung bases demonstrate considerable interstitial septal thickening, bilateral groundglass opacities, and some cystic spaces on the right. There are bilateral breast prostheses again demonstrated. The bones demonstrate mild degenerative spondylosis changes as well as the above-mentioned hip prosthesis. There is a pericardial effusion, also previously demonstrated. Impression: Splenomegaly. Nonspecific subcentimeter nodules within the spleen are similar to the previous study. Small amount of free intraperitoneal fluid, similar to previous Evidence of prior cholecystectomy. Pneumobilia, consistent with prior biliary intervention, unchanged Bilateral basilar pulmonary parenchymal interstitial septal thickening, groundglass opacities, and cystic spaces. Acuity indeterminate but similar to prior studies Pericardial effusion, also previously reported Renal cysts and scarring, unchanged Mild right hydronephrosis, unchanged and probably due to very mild right ureteropelvic junction obstruction Other findings as noted, including bilateral breast prostheses, right hip prosthesis This agrees with the preliminary interpretation provided overnight by [facility] teleradiology service. The CT scanner at [facility] is accredited by the [employer] and the scans are performed using protocols designed to limit radiation exposure to as low as reasonably achievable to attain images of sufficient resolution adequate for diagnostic evaluation.
--- NOTE | 2019-03-11 22:27 | NUR ---
ED Nurse Note: Report was given to ALEJO Estrada from [facility].
[2019-03-11 22:28] VITALS: BP 121/65
[2019-03-11 22:47] LABS: ALBUMIN 3.5 G/DL (3.4-5.0)
[2019-03-11 22:57] VITALS: BP 123/67
--- NOTE | 2019-03-11 22:57 | NUR ---
ED Nurse Note: Patient was transfered to [facility] due to severe diarrhea. Patient was transfered via [phone]. patient was able to talk with full sentences, AAO x4, VSS at this time, patient took all belongings.
--- NOTE | 2019-03-12 10:54 | Diagnostic Imaging Report ---
Indication: Chest pain Technique: One view of the chest Comparison: 01/05/2019 Findings: . Better inspiration currently. The heart size is normal. There is mild chronic appearing interstitial prominence, but no definite acute infiltrates, effusions, or congestion. Impression: No definite acute process. Findings as noted
--- NOTE | 2019-03-12 15:00 | Cardiology Report ---
APPROVED REPORT EKG Measurement Heart [id number] Normal sinus rhythm Normal ECG
== END 2019-03-11 22:57 | disposition short-term general hospital (02) ==
LOC: EDBD 18:42 → EDBEDREQ 19:13 → EMR 19:23
DX: K52.9 Noninfective gastroenteritis and colitis, unspecified (principal); E86.0 Dehydration; I10 Essential (primary) hypertension; J44.9 Chronic obstructive pulmonary disease, unspecified; Z88.5 Allergy status to narcotic agent; Z88.8 Allergy status to other drugs, medicaments and biological substances
CPT/HCPCS: 36415; 71045; 74177; 80053; 82553; 83605; 83690; 83735; 83880; 84100; 84484; 85007; 85025; 85610; 85730; 93005; 96361; 96374; 96375; 96376; J1170; J2405; J7030; Q9967; Z7502; 99284

== ENCOUNTER 2019-04-22 20:57 | Emergency (ER) | payer MEDICAID ==
[~2019-04-22] VITALS: Ht 165.1 cm; Wt 63.5 kg
[~2019-04-22 20:57] MED LIST changes: +HYDRALAZINE HCL25 M1 ORAL; +LOVENOX10 M4 SUBQ; +NARCAN4 MG NS; +WIXELA 250-501 EACH IH; +XOPENEX0.63 MG/3 HHN
--- NOTE | 2019-04-22 21:09 | NUR ---
ED Nurse Note: PT BROUGHT IN BY AMBULANCE FROM [facility] DUE TO RIGHT KNEE PAIN. PT REPORTS FALLING ABOUT 4 MONTHS AGO.
[2019-04-22 21:13] VITALS: BP 122/65
[2019-04-22] MEDS ORDERED: Hydromorphone 0.5mg/0.5ml inj ONE (21:40)
[2019-04-22] MEDS ORDERED: HYDROmorphone 1mg/ml Carpuject IM ONE (21:45)
--- NOTE | 2019-04-22 22:00 | NUR ---
ED Nurse Note: ULTRASOUND AT BEDSIDE.
--- NOTE | 2019-04-22 23:35 | NUR ---
ED Nurse Note: PT IN BED RESTING, NO ACUTE DISTRESS IS NOTED. VSS
[2019-04-22 23:36] VITALS: BP 116/59
--- NOTE | 2019-04-23 01:25 | NUR ---
ED Nurse Note: REPORT GIVEN TO JESÚS RIVERA RN. ENDORSED PLAN OF CARE.
--- NOTE | 2019-04-23 01:30 | NUR ---
ED Nurse Note: received patient from maureen arteaga. patient resting in bed with no acute distress. ao4. nad. vss. respirations even and unlabored.
[2019-04-23 02:00] VITALS: BP 118/52
[2019-04-23 03:00] VITALS: BP 128/59
--- NOTE | 2019-04-23 03:14 | NUR ---
ED Nurse Note: report given to ems personnel. Patient is cleared to be discharged per ERMD, pt is aox4, on room air, with stable vital signs. pt was given dc and prescription instructions, pt was able to verbalize understanding, pt id band removed. pt left via gurney with ems and all belongings. mychal moreno rn, notified of pt discharge and return to [facility].
[2019-04-23 03:15] VITALS: BP 128/59
--- NOTE | 2019-04-23 04:52 | Emergency Room Report ---
History of Present Illness General Chief Complaint: Lower Extremity Injury Source: Patient Present Illness HPI 63-year-old female presents ED for evaluation. Presents with right leg swelling and pain. Prior fracture of the knee. Placed in knee immobilizer. Residing in long term facility. Sent in to rule out DVT. Pain is throbbing, 10 out of 10, nonradiating. Denies chest pain or shortness of breath. No other aggravating relieving factors. Denies any other associated symptoms Allergies: Coded Allergies: DIPHENHYDRAMINE (Verified Allergy, Severe, 05/19/15) GENERAL STIFFNESS MORPHINE (Verified Allergy, Unknown, Rash, 11/16/18) Patient History Past Medical History: DM, HTN, COPD Past Surgical History: other - knee surgery Pertinent Family History: none Social History: Denies: smoking, alcohol use, drug use Now: No Immunizations: UTD Reviewed Nursing Documentation: PMH: Agreed; PSxH: Agreed Nursing Documentation-PMH Hx Cardiac Problems: Yes - CHF Hx Hypertension: Yes Hx COPD: Yes Hx Diabetes: Yes Hx Cancer: No Hx Neurological Problems: No Review of Systems All Other Systems: negative except mentioned in HPI Physical Exam Vital Signs Date Time Temp Pulse Resp B/P (MAP) Pulse Ox O2 Delivery O2 Flow Rate FiO2 04/22/19 20:58 98.4 80 16 127/85 (99) 92 Nasal Cannula 2.0 Sp02 EP Interpretation: reviewed, normal General Appearance: no apparent distress, alert, GCS 15, non-toxic Head: normocephalic Eyes: bilateral eye normal inspection, bilateral eye PERRL ENT: normal ENT inspection Neck: normal inspection Respiratory: normal inspection Cardiovascular #1: normal inspection Gastrointestinal: normal inspection Rectal: deferred Genitourinary: no CVA tenderness Musculoskeletal: back normal, normal range of motion, gait/station normal, tender, swelling - RLE Neurologic: alert, motor strength/tone normal, oriented x3, sensory intact, responsive, speech normal Psychiatric: normal inspection Skin: no rash Lymphatic: normal inspection Medical Decision Making Diagnostic Impression: Primary Impression: Knee pain Qualified Codes: M25.561 - Pain in right knee; G89.29 - Other chronic pain ER Course Hospital Course 63-year-old female present ED complaining of R LE pain and swelling. Recent knee fx Differential diagnoses include: DVT, cellulitis, contusion, abscess Clinical course Patient placed on stretcher after initial history and physical I ordered pain medication and DVT ultrasound. Doppler ultrasound shows no evidence of DVT I discussed findings with patient. Will discharge back to long term facility. Patient has history of opioid dependence and chronic pain. Safe for discharge for close outpatient follow-up I. I feel this is a highly complex case requiring extensive working including EKG/Rhythm strip, Xray/CT/US, Blood/urine lab work, repeat exams while in ED, and administration of strong opiates/narcotics for pain control, admission to hospital or close patient follow up. Diagnosis - knee pain Stable and discharged to SNF. Followup with PMD. Return to ED if symptoms recur or worsen CT/MRI/US Diagnostic Results CT/MRI/US Diagnostic Results : Imaging Test Ordered: Venous Duplex RLE Impression Negative ultrasonographic/duplex exam of the right lower extremity. No deep venous thrombosis . Right common femoral vein: Normal compressibility. The proximal, middle superficial femoral veins and popliteal vein are compressible. Transverse views of the distal superficial femoral vein are not available presumably due to suboptimal visualization related to body habitus. Images in longitudinal plane reveal flow within the distal superficial femoral vein. sample prep technician reports negative examination under real-time. Last Vital Signs Date Time Temp Pulse Resp B/P (MAP) Pulse Ox O2 Delivery O2 Flow Rate FiO2 04/23/19 03:15 97.8 60 14 128/59 96 Room Air 2.0 Status: improved Disposition: XFER SNF Condition: Stable Patient Instructions: Chronic Pain Gerardo Cervantes MD Apr 23, 2019 04:52
== END 2019-04-23 03:15 ==
LOC: EDBD 20:57 → EDUNIT# 20:57 → EMR 21:30
DX: M25.561 Pain in right knee (principal); G89.29 Other chronic pain; Z88.6 Allergy status to analgesic agent; J44.9 Chronic obstructive pulmonary disease, unspecified; E11.9 Type 2 diabetes mellitus without complications; I11.0 Hypertensive heart disease with heart failure; I50.9 Heart failure, unspecified
CPT/HCPCS: 93970; 96372; J1170; Z7502; 99284

== ENCOUNTER 2019-09-26 14:21 | Emergency (ER) | payer MEDICAID, OTHER ==
[~2019-09-26] VITALS: Ht 162.6 cm; Wt 56.7 kg
[2019-09-26 14:35] VITALS: BP 129/82
--- NOTE | 2019-09-26 14:35 | NUR ---
ED Nurse Note: Patient ILYA BUENO from [facility] c/o abdominal pain, nausea x3-4 days. Pt also reports diarrhea x today. Denies vomiting. Pt stated feeling dehydrated. AAOx4, verbally responisve. No SOB. Pt placed on abalone sheller.
--- NOTE | 2019-09-26 14:50 | NUR ---
ED Nurse Note: IV line established. Blood specimen collected and sent to lab.
[2019-09-26] MEDS ORDERED: D5NS 1,000 ML IV ONE (15:00)
--- NOTE | 2019-09-26 15:15 | Emergency Room Report ---
History of Present Illness General Chief Complaint: Abdominal Pain Present Illness HPI Disclaimer: Please note that this report is being documented using DRAGON technology. This can lead to erroneous entry secondary to incorrect interpretation by the dictating instrument. HPI: 64-year-old female presents with acute on chronic abdominal pain. She has a history of chronic abdominal pain, ulcerative colitis, narcotic dependency. She states for the past 2 to 3 weeks she has had abdominal pain with diarrhea. Multiple watery stools daily. Pain she describes 8 out of 10 cramping diffuse nonradiating. She was seen by her primary care doctor yesterday, Dr. Rios. I did speak with Dr. Rios Who states patient is currently followed by GI and is awaiting an EGD and colonoscopy. Patient denies any fevers, cough, shortness of breath. Allergies: Coded Allergies: DIPHENHYDRAMINE (Verified Allergy, Severe, 05/19/15) GENERAL STIFFNESS MORPHINE (Verified Allergy, Unknown, Rash, 11/16/18) COVID-19 Screening Contact w/high risk pt: No Recent Travel to affected area: No Experienced COVID-19 symptoms?: No COVID-19 Testing performed MAKE UP OPERATOR HELPER: No Patient History Reviewed Nursing Documentation: PMH: Agreed; PSxH: Agreed Nursing Documentation-PMH Past Medical History: No History, Except For Hx Cardiac Problems: Yes - CHF Hx Hypertension: Yes Hx COPD: Yes Hx Diabetes: Yes Hx Cancer: No Hx Neurological Problems: No Review of Systems All Other Systems: negative except mentioned in HPI Physical Exam Vital Signs Date Time Temp Pulse Resp B/P (MAP) Pulse Ox O2 Delivery O2 Flow Rate FiO2 09/26/19 14:26 80 18 150/82 (104) 98 Room Air 09/26/19 14:35 98.5 Sp02 EP Interpretation: reviewed, normal General Appearance: well appearing, no apparent distress Head: normocephalic, atraumatic Eyes: bilateral eye PERRL, bilateral eye EOMI ENT: hearing grossly normal, moist mucus membranes Neck: full range of motion, supple Respiratory: lungs clear, normal breath sounds, no rhonchi, no respiratory distress, no retraction, no wheezing Cardiovascular #1: normal peripheral pulses, regular rate, rhythm, no murmur Gastrointestinal: non tender, soft, non-distended, no guarding Neurologic: alert, oriented x3, no focal defects Skin: normal color, warm/dry Medical Decision Making Diagnostic Impression: Primary Impression: Abdominal pain Additional Impression: Diarrhea ER Course MDM: Differential included but not limited to ulcerative colitis flare, gastroenteritis, malabsorption, dehydration to name a few Clinical course-IV, laboratory studies and IV fluids given. Laboratory studies showed no significant abnormalities. Potassium was 3.4, no leukocytosis, urinalysis without sign of infection. I did speak with patient's primary care doctor. We felt it was in the best interest the patient not receive narcotic pain medications. She was offered nonnarcotic analgesics which she declined. CT scan showed possible inflammation of the left kidney however patient had no flank pain and no evidence of UTI so I have low suspicion for infection at this time. Her main complaint was diarrhea. As discussed with her primary care doctor we will start on a regimen of Imodium and I did believe patient would benefit from probiotic. She has had taken multiple antibiotics in the past. I did update the daughter as well on the patient's status. And she will be discharged back to facility for follow-up with gastroenterology. Labs - Laboratory Tests Test 09/26/19 14:57 09/26/19 15:50 White Blood Count 5.4 K/UL (4.8-10.8) Red Blood Count 4.44 M/UL (4.20-5.40) Hemoglobin 14.1 G/DL (12.0-16.0) Hematocrit 42.6 % (37.0-47.0) Mean Corpuscular Volume 96 FL (80-99) Mean Corpuscular Hemoglobin 31.8 PG (27.0-31.0) H Mean Corpuscular Hemoglobin Concent 33.2 G/DL (32.0-36.0) Red Cell Distribution Width 15.6 % (11.6-14.8) H Platelet Count 69 K/UL (150-450) L Mean Platelet Volume 10.0 FL (6.5-10.1) Neutrophils (%) (Auto) % (45.0-75.0) Lymphocytes (%) (Auto) % (20.0-45.0) Monocytes (%) (Auto) % (1.0-10.0) Eosinophils (%) (Auto) % (0.0-3.0) Basophils (%) (Auto) % (0.0-2.0) Differential Total Cells Counted 100 Neutrophils % (Manual) 70 % (45-75) Lymphocytes % (Manual) 27 % (20-45) Monocytes % (Manual) 3 % (1-10) Eosinophils % (Manual) 0 % (0-3) Basophils % (Manual) 0 % (0-2) Band Neutrophils 0 % (0-8) Platelet Estimate Decreased L Platelet Morphology Normal Red Blood Cell Morphology Normal Sodium Level 141 MMOL/L (136-145) Potassium Level 3.4 MMOL/L (3.5-5.1) L Chloride Level 107 MMOL/L (98-107) Carbon Dioxide Level 24 MMOL/L (21-32) Anion Gap 10 mmol/L (5-15) Blood Urea Nitrogen 19 mg/dL (7-18) H Creatinine 1.2 MG/DL (0.55-1.30) Estimated Glomerular Filtration Rate 45.3 mL/min (>60) Glucose Level 81 MG/DL (74-106) Calcium Level 8.5 MG/DL (8.5-10.1) Total Bilirubin 0.6 MG/DL (0.2-1.0) Aspartate Amino Transferase (AST) 72 U/L (15-37) H Alanine Aminotransferase (ALT) 68 U/L (12-78) Alkaline Phosphatase 202 U/L (46-116) H Total Protein 6.4 G/DL (6.4-8.2) Albumin 3.4 G/DL (3.4-5.0) Globulin 3.0 g/dL Albumin/Globulin Ratio 1.1 (1.0-2.7) Lipase 148 U/L (73-393) Urine Color Pale yellow Urine Appearance Clear Urine pH 5 (4.5-8.0) Urine Specific [place] 1.005 (1.005-1.035) Urine Protein Negative (NEGATIVE) Urine Glucose (UA) Negative (NEGATIVE) Urine Ketones Negative (NEGATIVE) Urine Blood Negative (NEGATIVE) Urine Nitrite Negative (NEGATIVE) Urine Bilirubin Negative (NEGATIVE) Urine Urobilinogen Normal MG/DL (0.0-1.0) Urine Leukocyte Esterase Negative (NEGATIVE) On reevaluation: Patient remained in no acute distress EKG Diagnostic Results Rate: normal Rhythm: other - Sinus bradycardia Last Vital Signs Date Time Temp Pulse Resp B/P (MAP) Pulse Ox O2 Delivery O2 Flow Rate FiO2 09/26/19 14:35 98.5 80 16 129/82 96 Room Air Status: improved Disposition: SNF Condition: Stable Scripts Lactobacillus Combo No.11 (PROBIOTIC) 1 Each Cap.sprink 1 EACH PO DAILY, #30 CAP Prov: Donal Thomas M.D. 09/26/19 Loperamide Hcl (LOPERAMIDE) 2 Mg Capsule 2 MG PO EVERY 6 HOURS PRN for Diarrhea, #20 CAP Prov: Donal Thomas M.D. 09/26/19 Donal Thomas M.D. Sep 26, 2019 15:15
[2019-09-26 15:19] LABS: HEMATOCRIT 42.6 % (37.0-47.0); HEMOGLOBIN 14.1 G/DL (12.0-16.0); MEAN CORPUSCULAR VOLUME 96 FL (80-99); PLATELET COUNT 69 K/UL (150-450); RED BLOOD COUNT 4.44 M/UL (4.20-5.40); RED CELL DISTRIBUTION WIDTH 15.6 % (11.6-14.8); WHITE BLOOD COUNT 5.4 K/UL (4.8-10.8)
[2019-09-26] MEDS ORDERED: ASPIRIN81 MG ORAL (15:26)
[2019-09-26] MEDS ORDERED: PRILOSEC OTC20 MG ORAL (15:26)
[2019-09-26] MEDS ORDERED: SUBOXONE 2 MG-1 EACH SL (15:26)
[2019-09-26] MEDS ORDERED: PERCOCET 5-3251 EACH ORAL (15:26)
[2019-09-26] MEDS ORDERED: OXYCODONE HCL5 M2 ORAL (15:26)
[2019-09-26] MEDS ORDERED: POTASSIUM CHLO10 MEQ ORAL (15:26)
[2019-09-26] MEDS ORDERED: KLONOPIN1 MG ORAL (15:26)
[2019-09-26 15:31] LABS: ANION GAP 10 mmol/L (5-15); BLOOD UREA NITROGEN 19 mg/dL (7-18); CALCIUM 8.5 MG/DL (8.5-10.1); CARBON DIOXIDE 24 MMOL/L (21-32); CHLORIDE 107 MMOL/L (98-107); CREATININE 1.2 MG/DL (0.55-1.30); POTASSIUM 3.4 MMOL/L (3.5-5.1); SODIUM 141 MMOL/L (136-145)
[2019-09-26 15:37] LABS: ALANINE AMINOTRANSFERASE 68 U/L (12-78); ALBUMIN 3.4 G/DL (3.4-5.0); ALBUMIN/GLOBULIN RATIO 1.1 (1.0-2.7); ALKALINE PHOSPHATASE 202 U/L (46-116); ASPARTATE AMINO TRANSFERASE 72 U/L (15-37); BILIRUBIN,TOTAL 0.6 MG/DL (0.2-1.0)
--- NOTE | 2019-09-26 15:50 | NUR ---
ED Nurse Note: Collected urine then sent.
[2019-09-26 16:00] VITALS: BP 132/65
--- NOTE | 2019-09-26 16:18 | NUR ---
ED Nurse Note: Pt refused tylenol 650mg, ERMD notified.
[2019-09-26 16:47] LABS: APPEARANCE,URINE CLEAR; BILIRUBIN, URINE NEGATIVE (NEGATIVE); COLOR,URINE PALE YELLOW; GLUCOSE, URINE (UA) NEGATIVE (NEGATIVE); KETONES,URINE NEGATIVE (NEGATIVE); LEUKOCYTE ESTERASE ,URINE NEGATIVE (NEGATIVE); NITRITE,URINE NEGATIVE (NEGATIVE); PH,URINE 5 (4.5-8.0); PROTEIN,URINE NEGATIVE (NEGATIVE); UROBILINOGEN,URINE NORMAL MG/DL (0.0-1.0)
--- NOTE | 2019-09-26 17:57 | NUR ---
ED Nurse Note: Pt was taken to CT via [facility]an[facility], accompanied by a tech.
--- NOTE | 2019-09-26 18:10 | NUR ---
ED Nurse Note: Pt returned from CT.
[2019-09-26 18:15] VITALS: BP 119/65
--- NOTE | 2019-09-26 18:54 | Diagnostic Imaging Report ---
History: PAIN Exam: CT ABDOMEN + PELVIS Without Contrast Technique more: CTDI is 4.90 mGy and DLP is 242.20 mGy-cm. Technique more: One or more of the following dose reduction techniques were used: automated exposure control, adjustment of the mA and/or kV according to patient size, use of iterative reconstruction technique. Comparison: 04/14/2019 FINDINGS: Left-sided pericardial effusion not significant changed in size measuring 2.1 cm. Basilar atelectasis. Pneumobilia and cholecystectomy again noted. Splenomegaly again seen. Bilateral renal scarring and small renal cysts again noted. Mild asymmetric prominence of the right renal collecting system and appearance of right perinephric stranding, edema may be related to ureteral stone or infection, clinically correlate. No ureteral stone is identified although the distal ureter and UVJ are limited due to spray artifact from right hip replacement. Other abdominal solid organs and abdominal aorta appear within limits on noncontrast imaging. No bowel dilation or free air. No evidence of colonic wall thickening or pericolonic inflammatory change. Small amount of pelvic free fluid now seen. IMPRESSION: Mild asymmetric prominence of the right renal collecting system and appearance of right perinephric stranding, edema may be related to ureteral stone or infection, clinically correlate. No ureteral stone is identified although the distal ureter and UVJ are limited due to spray artifact from right hip replacement. Bilateral renal scarring and small renal cysts again noted. Small amount of pelvic free fluid now seen. Left-sided pericardial effusion not significant changed in size measuring 2.1 cm. Basilar atelectasis. Pneumobilia and cholecystectomy again noted. Splenomegaly again seen.
--- NOTE | 2019-09-26 19:03 | NUR ---
HAND-OFF: Report given to Queenie DHILLON.
[2019-09-26 19:10] VITALS: BP 118/61
--- NOTE | 2019-09-26 19:11 | NUR ---
ED Nurse Note: received report from Kamala DHILLON.
--- NOTE | 2019-09-26 19:23 | NUR ---
Spoke with Nancy at [facility]-aware of patient going back.
[2019-09-26] MEDS ORDERED: PROBIOTIC1 EAC5 PO (19:38)
[2019-09-26] MEDS ORDERED: LOPERAMIDE2 MG PO (19:38)
--- NOTE | 2019-09-26 20:45 | NUR ---
ER DISCHARGE NOTE: Patient is cleared to be discharged per ERMD, pt is aox4, on room air, with stable vital signs. pt was given dc and prescription instructions, pt was able to verbalize understanding, pt id band and iv site removed without complications. pt transferred back to facility via apa in stable condition.
[2019-09-26 20:48] VITALS: BP 121/54
[2019-09-26 20:49] VITALS: BP 121/54
--- NOTE | 2019-09-26 20:49 | NUR ---
ED Nurse Note: gave report to Jessica with [facility].
== END 2019-09-26 20:49 ==
LOC: EDBD 14:21 → EDUNIT# 14:21 → EMR 14:56
DX: R10.9 Unspecified abdominal pain (principal); R19.7 Diarrhea, unspecified; G89.29 Other chronic pain; Z88.6 Allergy status to analgesic agent; J44.9 Chronic obstructive pulmonary disease, unspecified; I11.0 Hypertensive heart disease with heart failure; E11.9 Type 2 diabetes mellitus without complications; R00.1 Bradycardia, unspecified
CPT/HCPCS: 36415; 74176; 80053; 81003; 83690; 85007; 85025; 93005; 96361; 96365; 99284; J7030

== ENCOUNTER 2019-11-01 23:08 | Emergency (ER) | payer MEDICAID, OTHER ==
[~2019-11-01] VITALS: Ht 154.9 cm; Wt 59.0 kg
[~2019-11-01 23:08] MED LIST changes: +ASPIRIN81 MG ORAL; +KLONOPIN1 MG ORAL; +OXYCODONE HCL5 M2 ORAL; +PERCOCET 5-3251 EACH ORAL; +POTASSIUM CHLO10 MEQ ORAL; +PRILOSEC OTC20 MG ORAL; +PROBIOTIC1 EAC5 PO
--- NOTE | 2019-11-01 23:13 | Emergency Room Report ---
History of Present Illness General Chief Complaint: Multiple Trauma/Fall Source: Patient, EMS Present Illness HPI Patient is a 64-year-old female who presents after increased right-sided hip and right knee pain. She reports having recent fall. Patient states she recently had checked herself [place] of [place]. Had increased pain to the right hip. Prior history of opioid dependence as well as familial Mediterranean fever.She states that she had recently been visiting a friend and fell. Denies any loss of consciousness.Patient reports of increased pain to the hip. Prior history of hip replacement. 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 COVID-19 Screening: Negative COVID-19 COVID-19 Testing Source: last week negative Patient History Past Medical History: see triage record Last Menstrual Period: n/a Reviewed Nursing Documentation: PMH: Agreed; PSxH: Agreed Nursing Documentation-PMH Hx Cardiac Problems: Yes - CHF Hx Hypertension: Yes Hx COPD: Yes Hx Diabetes: Yes Hx Cancer: No Hx Neurological Problems: No Review of Systems All Other Systems: negative except mentioned in HPI Physical Exam Vital Signs Date Time Temp Pulse Resp B/P (MAP) Pulse Ox O2 Delivery O2 Flow Rate FiO2 11/01/19 23:08 98.2 60 19 120/60 (80) 99 Room Air Sp02 EP Interpretation: reviewed, normal General Appearance: normal inspection, well appearing, no apparent distress, alert, GCS 15, non-toxic Head: atraumatic ENT: normal ENT inspection, hearing grossly normal, normal voice Neck: normal inspection, full range of motion, supple, no bony tend Respiratory: normal inspection, lungs clear, normal breath sounds, no respiratory distress, no retraction, no wheezing Cardiovascular #1: regular rate, rhythm, no edema Gastrointestinal: normal inspection, normal bowel sounds, non tender, soft, no guarding, no hernia Genitourinary: no CVA tenderness Musculoskeletal: normal inspection, back normal, normal range of motion Neurologic: alert, motor strength/tone normal, senior health physics technician III-XII nml as tested, oriented x3, responsive, speech normal, normal inspection Psychiatric: normal inspection, judgement/insight normal, mood/affect normal Medical Decision Making Diagnostic Impression: Primary Impression: Fall Additional Impressions: Knee pain Hip pain, right Hip joint replacement status Closed fracture of right distal femur ER Course Patient presented for a fall. Differential diagnosis include was not limited to fracture, contusion, dislocation among others. X-ray imaging was ordered due to patient's recent trauma. Patient reports having prior hip replacement to the side of injury. X-ray imaging showed no evidence of acute fracture. Patient has some prior history of chronic abdominal pain due to familial Mediterranean fever and colitis. She states he is currently on antibiotics.X- ray imaging read by radiology showed no evident fracture of the right hip. X- ray imaging of the right knee showed age-indeterminate fracture to the distal femur. Patient will require outpatient orthopedic follow-up. Patient will be discharged back to her SNF. She appears to be stable for outpatient evaluation of fracture.Patient is neurovascularly intact distal to the injury. Last Vital Signs Date Time Temp Pulse Resp B/P (MAP) Pulse Ox O2 Delivery O2 Flow Rate FiO2 11/01/19 23:08 98.2 60 19 120/60 (80) 99 Room Air Status: improved Disposition: SNF Condition: Stable Enrique Boyd MD Nov 01, 2019 23:13
[2019-11-01 23:23] VITALS: BP 120/60
--- NOTE | 2019-11-01 23:51 | Diagnostic Imaging Report ---
EXAM: XR Right Hip With Pelvis When Performed, 1 View CLINICAL HISTORY: PAIN TECHNIQUE: Frontal view of the right hip with pelvis when performed. COMPARISON: No relevant prior studies available. FINDINGS: Patient status post total right hip arthroplasty. No hardware associated complications. Negative for dislocation. There is diffuse osteopenia. No evidence of acute fracture.
[2019-11-02] MEDS: HYDROcodone/Acetamin 5/325 tab ORAL ONE ×2 (00:01→00:11)
--- NOTE | 2019-11-02 00:04 | Diagnostic Imaging Report ---
EXAM: XR Right Knee, 3 Views CLINICAL HISTORY: PAIN TECHNIQUE: Three views of the right knee. COMPARISON: No relevant prior studies available. FINDINGS: Diffuse osteopenia. Deformity distal femoral diaphysis and metaphysis consistent with fracture of indeterminate age. There is impaction of the distal femoral diaphysis into the metaphyseal region. Clinical correlation is region is required. There is soft tissue swelling in the medial knee.
[2019-11-02] MEDS ORDERED: fentaNYL 100 mcg/2 mL IV ONE (00:15)
[2019-11-02] MEDS ORDERED: HYDROmorphone 1mg/ml Carpuject IM ONE (00:30)
[2019-11-02 01:07] VITALS: BP 126/68
[2019-11-02 04:00] VITALS: BP 106/62
== END 2019-11-02 04:00 ==
LOC: EDBD 23:08 → EMR 23:20
DX: M25.551 Pain in right hip (principal); M25.561 Pain in right knee; Z96.641 Presence of right artificial hip joint; M85.88 Other specified disorders of bone density and structure, other site; M85.861 Other specified disorders of bone density and structure, right lower leg; S72.401D Unspecified fracture of lower end of right femur, subsequent encounter for closed fracture with routine healing; X58.XXXD Exposure to other specified factors, subsequent encounter; Z88.6 Allergy status to analgesic agent; I11.0 Hypertensive heart disease with heart failure; I50.9 Heart failure, unspecified; J44.9 Chronic obstructive pulmonary disease, unspecified; E11.9 Type 2 diabetes mellitus without complications
CPT/HCPCS: 73501; 73562; 96374; J1170; Z7502; 99284

== ENCOUNTER 2019-11-15 00:42 | Emergency (ER) | payer MEDICAID ==
[~2019-11-15] VITALS: Ht 154.9 cm; Wt 59.0 kg
[2019-11-15 00:45] VITALS: BP 154/74
--- NOTE | 2019-11-15 00:45 | NUR ---
ED Nurse Note: Pt [place] from [facility] for pain in right arm and leg r/t s/p fall at facility when pt was attempting to ambulate to bedside commode. Pt denies hitting head or LOC. Pt states pain 10/10. Pt states swelling in arm and leg. No swelling or visible redness noted. Pt aao x 4, states that she uses a wheelchair at facility. ERMD at bedside. Awaiting further orders.
--- NOTE | 2019-11-15 00:59 | Emergency Room Report ---
History of Present Illness General Chief Complaint: To Be Triaged Source: Patient Present Illness HPI This is a 64-year-old female with a history of right hip replacement. She is currently in a usp. She presents with chief complaint of right leg pain status post fall. She got out of bed and try to use the commode and fell. She complained of right leg pain. Mostly of her hip and knee area. This is same presentation about 2 weeks ago. She also complained of right wrist pain. She has a history of chronic pain and opioid dependency. She was on Suboxone. She claims she is not taking thing at the usp for pain. Pain is 10 out of 10. Worse with movement. She is mostly in the wheelchair. Denies any other symptoms. X-rays from a couple weeks ago show indeterminate fracture. She said that her orthopedic recommend a CT scan. Allergies: Coded Allergies: DIPHENHYDRAMINE (Verified Allergy, Severe, 05/19/15) GENERAL STIFFNESS MORPHINE (Verified Allergy, Unknown, Rash, 11/16/18) COVID-19 Screening Contact w/high risk pt: No Recent Travel to affected area: No Experienced COVID-19 symptoms?: No COVID-19 Testing performed BRANCH CHIEF: No Patient History Past Medical History: see triage record, old chart reviewed Past Surgical History: other Pertinent Family History: none Social History: Denies: smoking Now: No Immunizations: other Reviewed Nursing Documentation: PMH: Agreed; PSxH: Agreed Nursing Documentation-PMH Hx Cardiac Problems: Yes - CHF Hx Hypertension: Yes Hx COPD: Yes Hx Diabetes: Yes Hx Cancer: No Hx Neurological Problems: No Review of Systems Eye: Denies: eye pain, blurred vision ENT: Denies: ear pain, nose congestion, throat swelling Respiratory: Denies: cough, shortness of breath Cardiovascular: Denies: chest pain, palpitations Gastrointestinal: Denies: abdominal pain, diarrhea, nausea, vomiting Musculoskeletal: Reports: joint pain; Denies: back pain Skin: Denies: rash Neurological: Denies: headache, numbness Endocrine: Denies: increased thirst, increased urine Hematologic/Lymphatic: Denies: easy bruising All Other Systems: negative except mentioned in HPI Physical Exam Vital Signs Date Time Temp Pulse Resp B/P (MAP) Pulse Ox O2 Delivery O2 Flow Rate FiO2 11/15/19 00:35 98.1 62 16 154/74 (100) 98 Vitals unremarkable Sp02 EP Interpretation: reviewed, normal General Appearance: well appearing, no apparent distress, alert, Chronically Ill Head: normocephalic, atraumatic Eyes: bilateral eye PERRL, bilateral eye EOMI ENT: hearing grossly normal, normal pharynx Neck: full range of motion, supple, no meningismus Respiratory: chest non-tender, lungs clear, normal breath sounds Cardiovascular #1: regular rate, rhythm, no murmur Gastrointestinal: normal bowel sounds, non tender, no mass, no organomegaly, no bruit, non-distended Musculoskeletal: back normal, normal range of motion, gait/station normal, other - Right lower extremity is in a knee immobilizer. She has diffuse tenderness over her hip and knee area. No trauma noted. She also has right wrist pain. No trauma noted. Psychiatric: mood/affect normal Procedures Splinting Splinting : Consent: Verbal Location: left wrist Hand-Made Type: plaster Splint: sugar-tong Pre-Proc Neuro Vasc Exam: normal Post-Proc Neuro Vasc Exam: normal Patient Tolerated: Well Complications: None Medical Decision Making Diagnostic Impression: Primary Impression: Radius and ulna distal fracture Qualified Codes: S52.501A - Unspecified fracture of the lower end of right radius, initial encounter for closed fracture; S52.601A - Unspecified fracture of lower end of right ulna, initial encounter for closed fracture Additional Impressions: Leg pain Qualified Codes: M79.604 - Pain in right leg Chronic pain Qualified Codes: G89.4 - Chronic pain syndrome ER Course This patient presents with a fall and sustain a nondisplaced distal radius and ulnar styloid fracture. She does have chronic pain. Wrist is splinted. There is no hip dislocation. There is a nondisplaced periprosthetic fracture along the medial cortex of the femur. This is nonsurgical in nature.. Pain is well controlled now. Will discharge home. Other X-Ray Diagnostic Results Other X-Ray Diagnostic Results : X-Ray ordered: right wrist xrays # of Views/Limited Vs Complete: 3 View Indication: Pain EP Interpretation: Yes Interpretation: no dislocation, no soft tissue swelling, other - compacted distal radius frx; ulnar styloid frx Impression: Other - distal radius and ulna frx Electronically Signed by: Rex Toledo MD CT/MRI/US Diagnostic Results CT/MRI/US Diagnostic Results : Imaging Test Ordered: CT femur Impression Read by radiologist. Status post right hip bipolar hemiarthroplasty with a nondisplaced mana-prosthetic fracture along the medial cortex of the right proximal femur. Fracture measured 3.3 cm. Last Vital Signs Date Time Temp Pulse Resp B/P (MAP) Pulse Ox O2 Delivery O2 Flow Rate FiO2 11/15/19 00:35 98.1 62 16 154/74 (100) 98 Status: improved Disposition: SNF Condition: Stable Scripts Oxycodone/Acetaminophen 5-325* (PERCOCET 5-325 MG TABLET*) 1 Each Tablet 1 TAB ORAL Q6H PRN for For Pain, #20 TAB 0 Refills Prov: Rex Toledo MD 11/15/19 Additional Instructions: Follow-up with your orthopedic in a week. Ice pack to the area. Nonweightbearing. Use your wheelchair. Return if symptoms worsen. Rex Toledo MD Nov 15, 2019 00:59
[2019-11-15] MEDS ORDERED: HYDROmorphone 1mg/ml Carpuject IM ONE ×2 (01:00→03:00)
--- NOTE | 2019-11-15 01:00 | NUR ---
ED Nurse Note: all medications administered, pt tolerated well no ss of distress noted. will continue to monitor. XRay and CT notified of pending orders.
--- NOTE | 2019-11-15 02:09 | NUR ---
ED Nurse Note: xray at bedside
--- NOTE | 2019-11-15 02:14 | NUR ---
ED Nurse Note: pt taken to CT in stable condition, VSS no ss of distress noted. will continue to monitor.
[2019-11-15 02:22] VITALS: BP 143/72
--- NOTE | 2019-11-15 03:10 | NUR ---
ED Nurse Note: pt returned from CT in stable condition. VSS no ss of distress noted. will continue to monitor.
--- NOTE | 2019-11-15 03:12 | NUR ---
ED Nurse Note: BECK OPERATOR at bedside for splint per ERMD
[2019-11-15] MEDS ORDERED: TRAMADOL HCL50 MG ORAL (03:29)
--- NOTE | 2019-11-15 03:31 | Diagnostic Imaging Report ---
ADDENDUM - Added by Ameya Augustine MD on 11/15/2019 5:30 AM (-07:00) There is a typographical error in the header of the report. The header is rewritten as follows: EXAM: Right wrist radiographs, 3 views EXAM: XR Right Foot Complete, 3 or More Views CLINICAL HISTORY: TRAUMA TECHNIQUE: Frontal, lateral and oblique views of the right wrist. COMPARISON: None FINDINGS / IMPRESSION: Diffuse osseous mineralization limits evaluation of the bones. There is an acute comminuted and slightly angulate a fracture of the distal right radial metaphysis, best seen on the lateral view. The presence or absence of intra-articular extension is difficult to assess due to osseous demineralization. Further evaluation with CT would be helpful in this regard. Right ulnar styloid process fracture is also noted. Wrist bone alignment is maintained. Possible tiny age-indeterminate triquetral fracture is noted. Correlation with point tenderness is recommend. Soft tissue swelling is demonstrated.
--- NOTE | 2019-11-15 03:38 | NUR ---
ED Nurse Note: ERMD at bedside
[2019-11-15] MEDS ORDERED: PERCOCET 5-3251 EACH ORAL (03:41)
--- NOTE | 2019-11-15 03:49 | Diagnostic Imaging Report ---
EXAM: CT Right Lower Extremity Without Intravenous Contrast CLINICAL HISTORY: TRAUMA TECHNIQUE: Axial computed tomography images of the right lower extremity without intravenous contrast. CTDI is 4 mGy and DLP is 210 mGy-cm. One or more of the following dose reduction techniques were used: automated exposure control, adjustment of the mA and/or kV according to patient size, use of iterative reconstruction technique. COMPARISON: Right hip radiographs November 01, 2019 FINDINGS/IMPRESSION: Status post right hip bipolar hemiarthroplasty with a nondisplaced periprosthetic fracture along the medial cortex of the right proximal femur. The fracture measures 3.3 cm craniocaudal with the center located approximately 6 cm distal to the greater trochanter (series 3 images 46- 56). Other findings: Mild demineralization within the greater trochanter, suspicious for stress shielding. Intact right superior and inferior pubic ramus. Mild joint effusion within the knee. Old, healed impacted right distal femur fracture. Mild osseous demineralization.
[2019-11-15 04:02] VITALS: BP 139/68
--- NOTE | 2019-11-15 04:20 | NUR ---
Spoke with Alejandrina at [facility], aware of patient going back. Copy of images sent with patient. Alejandrina aware.
[2019-11-15 04:31] VITALS: BP 112/62
--- NOTE | 2019-11-15 04:31 | NUR ---
ER DISCHARGE NOTE: Patient is cleared to be discharged to [facility] via [facility] per ERMD, pt is aox4, 97% on room air, with stable vital signs. pt was given dc and prescription instructions, pt was able to verbalize understanding, pt id band removed. pt is able to ambulate with steady gait. pt took all belongings.
== END 2019-11-15 04:31 ==
LOC: EDBD 00:42 → EMR 01:00
DX: S72.8X1A Other fracture of right femur, initial encounter for closed fracture (principal); M97.01XA Periprosthetic fracture around internal prosthetic right hip joint, initial encounter; S52.611A Displaced fracture of right ulna styloid process, initial encounter for closed fracture; S52.501A Unspecified fracture of the lower end of right radius, initial encounter for closed fracture; G89.4 Chronic pain syndrome; J44.9 Chronic obstructive pulmonary disease, unspecified; E11.9 Type 2 diabetes mellitus without complications; I11.0 Hypertensive heart disease with heart failure; I50.9 Heart failure, unspecified; Z88.6 Allergy status to analgesic agent; Z96.641 Presence of right artificial hip joint; W06.XXXA Fall from bed, initial encounter; Y92.9 Unspecified place or not applicable
CPT/HCPCS: 29125; 73110; 73700; 96372; J1170; Z7502; 99284

== ENCOUNTER 2019-12-22 15:48 | Emergency (ER) | payer MEDICAID ==
[~2019-12-22] VITALS: Ht 152.4 cm; Wt 59.0 kg
[~2019-12-22 15:48] MED LIST changes: +TRAMADOL HCL50 MG ORAL
[2019-12-22 15:56] VITALS: BP 116/62
--- NOTE | 2019-12-22 16:06 | NUR ---
ED Nurse Note: Pt from [facility] and brought in by ambulance S/P fall this afternoon. Patient slipped on a wet floor and fell which caused her to land on her right side. Patient now c/o right hip , right knee and right side facial pain. AAO x4, follows commands. Noted a large swelling and mild bruising on pt's right hip. Ice pack applied on right hip. Also noted the right leg is shorter than the left leg. Patient states she had x of left knee surgery that caused the shortness.
[2019-12-22] MEDS ORDERED: METOPROLOL SUCC25 MG ORAL (16:20)
[2019-12-22] MEDS ORDERED: AMLODIPINE BESYL5 MG ORAL (16:20)
[2019-12-22] MEDS ORDERED: Hydromorphone 0.5mg/0.5ml inj IVP ONE ×2 (16:45→19:30)
--- NOTE | 2019-12-22 16:52 | NUR ---
ED Nurse Note: Called CT for imaging.
--- NOTE | 2019-12-22 17:07 | Emergency Room Report ---
History of Present Illness General Chief Complaint: Multiple Trauma/Fall Source: Medical Record, EMS (Yasmine John) Present Illness HPI 64-year-old female presents to the emergency department brought by ambulance for status post mechanical slip and fall at assisted living earlier today. Patient reports that she is currently rehabbing from right hip surgery as well as right forearm fracture. Patient reports that she is ambulatory with a walker. She reports that she went to go to the bathroom and she slipped on some water and fell onto the bathroom floor and describes falling onto a step inside the bathroom. She reports she hit the side of her face she denies loss of consciousness. Patient does report some ringing in her ears. Patient has complicated past medical history of CHF, familial Mediterranean fever syndrome, chronic pain syndrome, high blood pressure and frequent falls. Patient is currently in a right forearm splint for recent forearm fracture. She reports bruising and swelling to the right hip area. Patient reports unable to weight- bear. She also is reporting some pain to the right knee. She denies swelling in the knee. She reports she has sensation in the affected leg and arm. She denies taking blood thinning medications. Patient reports that she is given Percocet intermittently at the assisted living however she states this medication is not helping with her pain and that she typically responds well to Dilaudid. Patient reports allergy to Benadryl and morphine. Patient reports some tenderness to the right side of her neck. No other aggravating or relieving factors at this time. She denies open wounds or bleeding. (Yasmine John) Allergies: Coded Allergies: DIPHENHYDRAMINE (Verified Allergy, Severe, 05/19/15) GENERAL STIFFNESS MORPHINE (Verified Allergy, Unknown, Rash, 11/16/18) COVID-19 Screening Contact w/high risk pt: No Recent Travel to affected area: No Experienced COVID-19 symptoms?: No (Yasmine John) Patient History Past Medical History: see triage record, CHF Past Surgical History: other - Right hip surgery Pertinent Family History: none Last Menstrual Period: na Reviewed Nursing Documentation: PMH: Agreed; PSxH: Agreed (Yasmine John) Nursing Documentation-PMH Past Medical History: No History, Except For Hx Cardiac Problems: Yes - CHF Hx Hypertension: Yes Hx COPD: Yes Hx Diabetes: Yes Hx Cancer: No Hx Gastrointestinal Problems: Yes - collitis, GERD Hx Neurological Problems: No (Yasmine John) Review of Systems All Other Systems: negative except mentioned in HPI (Yasmine John) Physical Exam Vital Signs Date Time Temp Pulse Resp B/P (MAP) Pulse Ox O2 Delivery O2 Flow Rate FiO2 12/22/19 15:56 98.6 66 18 116/62 (80) 95 Room Air Sp02 EP Interpretation: reviewed, normal General Appearance: alert, GCS 15, non-toxic, mild distress - pt. grimmacing in pain Head: normocephalic, other - TTp to the right TMJ area and right cheekbone, no bruising some mild soft tissue swelling. Patient also has right lateral tenderness in the cervical area. No midline tenderness. Eyes: bilateral eye normal inspection, bilateral eye PERRL, bilateral eye other - No photophobia ENT: hearing grossly normal, normal voice Neck: full range of motion, no bony tend, tender lateral - Right sided Respiratory: chest non-tender, lungs clear, normal breath sounds, no respiratory distress, no accessory muscle use, no wheezing, speaking full sentences Cardiovascular #1: regular rate, rhythm, no edema, normal capillary refill Cardiovascular #2: 2+ dorsalis pedis (R), 2+ dorsalis pedis (L) Gastrointestinal: non tender, soft, other - No abdominal bruises or tenderness Rectal: deferred Musculoskeletal: tender - Tenderness to palpation to the lateral aspect of the right hip and thigh, swelling, bruising, postsurgical scar noted. Patient also has tenderness to the anterior lateral aspect of the right knee, no significant increase in laxity on exam. Patient is NVI. Patient unable to bear weight. Currently splinted right forearm with tenderness to dorsal aspect. Splint appears to be intact., swelling - Right hip and thigh bruising also noted, other - No swelling or obvious deformity of the knee. Neurologic: alert, oriented x3, sensory intact, responsive, speech normal, grossly normal, no focal defects, other - Patient is answering questions appropriately and providing sufficient amount of detail without increase in response time or difficulty with word recall. Psychiatric: judgement/insight normal Skin: Ecchymosis/Bruising - Lateral aspect of the right hip and thigh (Yasmine John) Medical Decision Making PA Attestation Dr. Rehman Is my supervising Physician whom patient management has been discussed with. (Yasmine John) Diagnostic Impression: Primary Impression: Contusion of right hip and thigh Qualified Codes: S70.01XA - Contusion of right hip, initial encounter; S70.11XA - Contusion of right thigh, initial encounter Additional Impressions: Effusion, right knee Head contusion Qualified Codes: S00.431A - Contusion of right ear, initial encounter Wrist fracture, right Qualified Codes: S62.101S - Fracture of unspecified carpal bone, right wrist, sequela ER Course 64-year-old female presents to the emergency department brought by ambulance for status post mechanical slip and fall at assisted living earlier today. Patient reports that she is currently rehabbing from right hip surgery as well as right forearm fracture. Patient reports that she is ambulatory with a walker. She reports that she went to go to the bathroom and she slipped on some water and fell onto the bathroom floor and describes falling onto a step inside the bathroom. She reports she hit the side of her face she denies loss of consciousness. Patient does report some ringing in her ears. Patient has complicated past medical history of CHF, familial Mediterranean fever syndrome, chronic pain syndrome, high blood pressure and frequent falls. Patient is currently in a right forearm splint for recent forearm fracture. She reports bruising and swelling to the right hip area. Patient reports unable to weight- bear. She also is reporting some pain to the right knee. She denies swelling in the knee. She reports she has sensation in the affected leg and arm. She denies taking blood thinning medications. Patient reports that she is given Percocet intermittently at the assisted living however she states this medication is not helping with her pain and that she typically responds well to Dilaudid. Patient reports allergy to Benadryl and morphine. Patient reports some tenderness to the right side of her neck. No other aggravating or relieving factors at this time. She denies open wounds or bleeding. Ddx considered but are not limited to Fracture, dislocation, contusion, Sprain/ Strain/Spasm, orthopedic hardware displacement/complication, subarachnoid hemorrhage, subdural hematoma, skull injury, or ligamental injury, spinal cord injury just name a few Vital signs: are WNL, pt. is afebrile H&PE are most consistent with musculoskeletal injury will perform imaging to r/ o fractures/dislocations. Patient frequents the emergency department for multiple falls and is known to have high opiate tolerance and dependence. ORDERS: - X-ray Right knee 3 views, and Right forearm 2 views - negative for fx, Dislocation, or significant soft tissue injury, per preliminary read in ED, and signed by JESSICA John, my supervising physician has reviewed, and agrees with my interpretation. - CT Head, Facial Bones, C-spine, and Right hip without contrast-- all no acute fractures or hemorrhages. ED INTERVENTIONS: - 0.5mg Dilaudid IV x 2 -Lidoderm TP -D/w pt. imaging results. She was given CD copies as well as copy of the official [facility] reports. D/w pt. regarding incidental finding of 6 mm left- sided thyroid nodule. This information was also highlighted for ease of visualization on the official stop out reports that were given to her. Discussed with patient she needs to follow-up with her primary care provider and have this closely watched. Patient states that she was told before that she had a nodule by her primary care provider but cannot remember the size of it. She verbalizes her understanding and agreement with this plan. -I do not identify an emergent condition at this time. With current presentation , pt. is stable for close outpatient follow up and conservative treatment. D/ w pt. to return promptly to ED with worsening or new symptoms.- Pt. verbalizes' understanding and agreement with proposed treatment plan. DISCHARGE: At this time pt. is stable for back to SNF where she originally came from. Will provide printed patient care instructions, and any necessary prescriptions. Care plan and follow up instructions have been discussed with the patient prior to discharge. (Yasmine John) Other X-Ray Diagnostic Results Other X-Ray Diagnostic Results #1: X-Ray ordered: Right forearm # of Views/Limited Vs Complete: 2 View Indication: Pain EP Interpretation: Yes JESSICA Xray: Interpretation reviewed, by supervising MD, and agrees with findings. Interpretation: no soft tissue swelling, other - distal radial fx still present Electronically Signed by: Yasmine John PA-C Other X-Ray Diagnostic Results #2: X-Ray ordered: Right knee # of Views/Limited Vs Complete: 3 View Indication: Pain EP Interpretation: Yes JESSICA Xray: Interpretation reviewed, by supervising MD, and agrees with findings. Interpretation: no dislocation, no soft tissue swelling, no fractures, other - mild effusion Impression: Other - effusion Electronically Signed by: Yasmine John PA-C (Yasmine John) Other X-Ray Diagnostic Results #1: Electronically Signed by: P A documentation of Xray reviewed by me and is accurate, Ozzy Rehman MD Other X-Ray Diagnostic Results #2: Electronically Signed by: P A documentation of Xray reviewed by me and is accurate, Ozzy Rehman MD (Ozzy Rehman MD) CT/MRI/US Diagnostic Results CT/MRI/US Diagnostic Results #1: Imaging Test Ordered: CT Head No contrast Impression "IMPRESSION: No acute intracranial process. No acute fractures. " --Per official radiology report- Please see report for specific details. CT/MRI/US Diagnostic Results #2: Imaging Test Ordered: CT Facial Bones No contrast Impression " IMPRESSION: No acute fracture or dislocation. " --Per official radiology report- Please see report for specific details. CT/MRI/US Diagnostic Results #3: Imaging Test Ordered: CT C-Spine No contrast Impression " IMPRESSION: 1. No acute fracture or dislocation. 2. Emphysematous changes are incidentally noted within the lung apices. 3. Incidental note is made of a left thyroid lobe nodule measuring 16 mm with calcifications. Correlate with nonurgent urgent thyroid ultrasound to further evaluate. ":--Per official radiology report- Please see report for specific details. CT/MRI/US Diagnostic Results #4: Imaging Test Ordered: CT Right hip-femur No contrast Impression " IMPRESSION: No acute fracture or dislocation. Status post right hip arthroplasty. "--Per official radiology report- Please see report for specific details. (Yasmine John) Last Vital Signs Date Time Temp Pulse Resp B/P (MAP) Pulse Ox O2 Delivery O2 Flow Rate FiO2 12/22/19 16:06 66 18 Room Air 12/22/19 15:56 98.6 116/62 95 Status: improved (Yasmine John) Disposition: SNF Condition: Stable Scripts Lidocaine Patch* (Lidoderm Patch*) 1 Each Adh..patch 1 PATCH TOPIC DAILY, #30 PATCH 0 Refills Patch(es) may remain in place for up to 12 hours in any 24-hour period. Prov: Yasmine John 12/22/19 Referrals: NON PHYSICIAN (PCP) Sherri Leblanc [facility]. [facility] Patient Instructions: Contusion, Wrist Fracture Additional Instructions: Take previously prescribed Percocet pain medication in addition to newly rx'd Lidoderm as directed. Follow up with an IUSS ANALYST in 3-5 days, even if your symptoms have resolved. If symptoms persist MRI may be required at the discretion of your PCP or Ortho Specialist. --Please review list of primary care clinics, if you do not already have a primary care provider who can give you an Orthopedic Referral. Return sooner to ED if new symptoms occur, or current symptoms become worse. - Please note that this Emergency Department Report was dictated using [employer] manager technology software, occasionally this can lead to erroneous entry secondary to interpretation by the dictation equipment. Yasmine John Dec 22, 2019 17:07 Ozzy Rehman MD Dec 23, 2019 23:49
--- NOTE | 2019-12-22 17:52 | Diagnostic Imaging Report ---
EXAM: CT Head Without Intravenous Contrast CLINICAL HISTORY: PAIN Per notes, history of fall. TECHNIQUE: Axial computed tomography images of the head/brain without intravenous contrast. CTDI is 53.4 mGy and DLP is 938.7 mGy-cm. One or more of the following dose reduction techniques were used: automated exposure control, adjustment of the mA and/or kV according to patient size, use of iterative reconstruction technique. COMPARISON: No relevant prior studies available. FINDINGS: Brain: Unremarkable. No acute intracranial hemorrhage. No edema. Ventricles: No ventriculomegaly. Bones/joints: No acute fracture. Soft tissues: Unremarkable. Sinuses: No acute sinusitis. Mastoid air cells: Unremarkable as visualized. No mastoid effusion. IMPRESSION: No acute intracranial process. No acute fractures.
--- NOTE | 2019-12-22 17:58 | Diagnostic Imaging Report ---
EXAM: CT Maxillofacial Without Intravenous Contrast CLINICAL HISTORY: PAIN Per notes, status post fall. TECHNIQUE: Axial computed tomography images of the face without intravenous contrast. CTDI is 53.4 mGy and DLP is 938.7 mGy-cm. One or more of the following dose reduction techniques were used: automated exposure control, adjustment of the mA and/or kV according to patient size, use of iterative reconstruction technique. COMPARISON: No relevant prior studies available. FINDINGS: Bones/joints: No acute fracture or dislocation. Soft tissues: No focal edema. Orbits: Unremarkable. Sinuses: Mild left maxillary sinus disease. No air-fluid levels. IMPRESSION: No acute fracture or dislocation.
--- NOTE | 2019-12-22 18:11 | Diagnostic Imaging Report ---
EXAM: CT Cervical Spine Without Intravenous Contrast CLINICAL HISTORY: PAIN Status post fall. TECHNIQUE: Axial computed tomography images of the cervical spine without intravenous contrast. CTDI is 19.7 mGy and DLP is 596.1 mGy-cm. One or more of the following dose reduction techniques were used: automated exposure control, adjustment of the mA and/or kV according to patient size, use of iterative reconstruction technique. COMPARISON: No relevant prior studies available. FINDINGS: Vertebrae: Unremarkable. No acute fracture. Discs/spinal canal/neural foramina: No acute findings. No spinal canal stenosis. Soft tissues: No focal soft tissue edema. Emphysematous changes are noted in the lung apices. No pneumothorax. Left thyroid nodule measuring 16 mm with calcifications. IMPRESSION: 1. No acute fracture or dislocation. 2. Emphysematous changes are incidentally noted within the lung apices. 3. Incidental note is made of a left thyroid lobe nodule measuring 16 mm with calcifications. Correlate with nonurgent urgent thyroid ultrasound to further evaluate.
--- NOTE | 2019-12-22 18:32 | Diagnostic Imaging Report ---
EXAM: CT Right Lower Extremity Without Intravenous Contrast, Hip CLINICAL HISTORY: PAIN Per notes, status post fall. TECHNIQUE: Axial computed tomography images of the right hip without intravenous contrast. CTDI is 4.4 mGy and DLP is 238.70 mGy-cm. One or more of the following dose reduction techniques were used: automated exposure control, adjustment of the mA and/or kV according to patient size, use of iterative reconstruction technique. COMPARISON: No relevant prior studies available. FINDINGS: Bones/joints: Status post right hip arthroplasty. No acute fracture. No dislocation. No evidence of hardware loosening. Soft tissues: No joint effusion. Trace pelvic ascites, nonspecific. Right hip subcutaneous soft tissue postoperative edema. Injection related changes are identified in the anterior abdominal wall. IMPRESSION: No acute fracture or dislocation. Status post right hip arthroplasty.
--- NOTE | 2019-12-22 18:33 | Diagnostic Imaging Report ---
EXAM: XR Right Knee, 3 Views CLINICAL HISTORY: PAIN TECHNIQUE: Three views of the right knee. COMPARISON: No relevant prior studies available. FINDINGS: Bones/joints: Small knee joint effusion. Mild patellar spurring. Osteopenia. Old healed fracture of the distal femur metadiaphyseal junction. No dislocation. Soft tissues: Unremarkable. Vasculature: Atherosclerotic calcification in the lower extremity. IMPRESSION: 1. No acute osseous abnormality. 2. Small knee joint effusion.
--- NOTE | 2019-12-22 18:35 | Diagnostic Imaging Report ---
EXAM: XR Right Forearm, 2 Views CLINICAL HISTORY: PAIN TECHNIQUE: Frontal and lateral views of the right forearm. COMPARISON: Radiograph of the right wrist 11/15/2019. Findings/impression: Overlying cast limits fine detail evaluation of the soft tissue and osseous structures. Comminuted and displaced distal right radius fracture. No evidence of dislocation.
--- NOTE | 2019-12-22 19:14 | NUR ---
HAND-OFF: Report given to Emily DHILLON.
--- NOTE | 2019-12-22 19:15 | NUR ---
ED Nurse Note: Patient request to be placed on bed carvajal. Patient assisted on to bed carvajal. Patient also requested additional pain med and consulted with ER provider.
--- NOTE | 2019-12-22 19:30 | NUR ---
ED Nurse Note: Patient provided with additional pain medication and taken off of bedpan. perineal care provided.
--- NOTE | 2019-12-22 19:44 | NUR ---
spoke with john from [facility], states that patient will be going to room 212 and for transport to come through [facility]
--- NOTE | 2019-12-22 19:45 | NUR ---
ED Nurse Note: Patient provided with additional face masks per request.
[2019-12-22] MEDS ORDERED: LIDODERM700 M1 TOPIC (20:07)
--- NOTE | 2019-12-22 20:19 | NUR ---
ED Nurse Note: Transport here for picker box operator. Report rendered to Reji DELANEY.
--- NOTE | 2019-12-22 20:44 | NUR ---
ED Nurse Note: Patient IV removed from left forearm.
[2019-12-22 20:46] VITALS: BP 117/65
--- NOTE | 2019-12-22 20:46 | NUR ---
ER DISCHARGE NOTE: Patient is cleared to be discharged per ERMD, pt is aox4, on room air, with stable vital signs. pt was given dc instructions, pt was able to verbalize understanding, pt id bandremoved. pt departed with all belongings accompanied by EMT transport
== END 2019-12-22 20:46 ==
LOC: EDBD 15:48 → EMR 16:15
DX: S70.01XA Contusion of right hip, initial encounter (principal); S70.11XA Contusion of right thigh, initial encounter; M25.461 Effusion, right knee; S00.431A Contusion of right ear, initial encounter; S62.101S Fracture of unspecified carpal bone, right wrist, sequela; W01.0XXA Fall on same level from slipping, tripping and stumbling without subsequent striking against object, initial encounter; Y92.129 Unspecified place in nursing home as the place of occurrence of the external cause; Z88.6 Allergy status to analgesic agent; J44.9 Chronic obstructive pulmonary disease, unspecified; K21.9 Gastro-esophageal reflux disease without esophagitis; I11.0 Hypertensive heart disease with heart failure; I50.9 Heart failure, unspecified; E11.9 Type 2 diabetes mellitus without complications; E04.1 Nontoxic single thyroid nodule; Z96.641 Presence of right artificial hip joint
CPT/HCPCS: 70450; 70486; 72125; 73090; 73562; 73700; 96374; 96376; J1170; Z7502; 99284

== ENCOUNTER 2020-01-18 17:47 | Emergency (ER) | payer MEDICAID ==
[~2020-01-18] VITALS: Ht 157.5 cm; Wt 56.7 kg
[~2020-01-18 17:47] MED LIST changes: +AMLODIPINE BESYL5 MG ORAL; +LIDODERM700 M1 TOPIC; +METOPROLOL SUCC25 MG ORAL
[2020-01-18 17:58] VITALS: BP 122/98
--- NOTE | 2020-01-18 17:58 | NUR ---
ED Nurse Note: Patient from [facility] and brought in by ambulance due to abd pain with diarrhea x 1 week. Also c/o sore throat and swelling on right deltoid after taking flu shot a few days ago. Noted bruising on abdomen. AAO x4, follows commands with mild SOB upon exertion. Pt normally on oxygen at 3LPM.
[2020-01-18] MEDS ORDERED: Vancomycin 1 GM in NS 275 ML IVPB ONE (18:15)
[2020-01-18] MEDS ORDERED: Cefepime HCl 2 GM in NS 110 ML IV ONE (18:15)
[2020-01-18] MEDS ORDERED: ESTRACE42.5 GM PV (18:27)
[2020-01-18] MEDS ORDERED: BUPRENORPHIN-N1 EACH SL (18:27)
[2020-01-18] MEDS ORDERED: CELEBREX100 MG ORAL (18:27)
[2020-01-18] MEDS ORDERED: CYANOCOBALAMIN5 GM MC (18:27)
[2020-01-18] MEDS ORDERED: WIXELA 250-501 EACH IH (18:27)
[2020-01-18] MEDS ORDERED: XVITE TABLET1 EACH PO (18:27)
[2020-01-18] MEDS ORDERED: SUBOXONE 2 MG-1 EACH SL (18:27)
--- NOTE | 2020-01-18 18:42 | NUR ---
ED Nurse Note: Collected blood, urine and covid19 swab then sent. sugarcane research technician at the bed side for CXR.
[2020-01-18 18:50] LABS: APPEARANCE,URINE CLEAR; BILIRUBIN, URINE NEGATIVE (NEGATIVE); COLOR,URINE PALE YELLOW; GLUCOSE, URINE (UA) NEGATIVE (NEGATIVE); KETONES,URINE NEGATIVE (NEGATIVE); LEUKOCYTE ESTERASE ,URINE 1+ (NEGATIVE); NITRITE,URINE NEGATIVE (NEGATIVE); PH,URINE 5 (4.5-8.0); PROTEIN,URINE NEGATIVE (NEGATIVE); UROBILINOGEN,URINE NORMAL MG/DL (0.0-1.0)
[2020-01-18 18:52] LABS: HEMATOCRIT 34.4 % (37.0-47.0); HEMOGLOBIN 11.7 G/DL (12.0-16.0); MEAN CORPUSCULAR VOLUME 96 FL (80-99); PLATELET COUNT 60 K/UL (150-450); RED BLOOD COUNT 3.58 M/UL (4.20-5.40); RED CELL DISTRIBUTION WIDTH 18.7 % (11.6-14.8); WHITE BLOOD COUNT 4.1 K/UL (4.8-10.8)
[2020-01-18 18:59] LABS: BASOPHILS % (AUTO) 1.1 % (0.0-2.0); EOSINOPHILS % (AUTO) 3.8 % (0.0-3.0); MONOCYTES % (AUTO) 8.2 % (1.0-10.0); NEUTROPHILS % (AUTO) 61.9 % (45.0-75.0)
[2020-01-18 19:00] VITALS: BP 134/78
[2020-01-18 19:03] LABS: INR 1.2 (0.9-1.1)
--- NOTE | 2020-01-18 19:03 | NUR ---
HAND-OFF: Report given to Fabricio RN.
--- NOTE | 2020-01-18 19:04 | NUR ---
ED Nurse Note: Report received from CYNTHIA Botello RN
[2020-01-18 19:05] LABS: CALCIUM 8.2 MG/DL (8.5-10.1); CREATININE 1.6 MG/DL (0.55-1.30); POTASSIUM 3.7 MMOL/L (3.5-5.1)
--- NOTE | 2020-01-18 19:13 | NUR ---
PTS DAUGHTER INFO ALBINO BOWSER [phone]
[2020-01-18] MEDS ORDERED: Morphine Sulfate 2mg/ml Inj(IV/IM USE ONLY) IVP ONE (19:15)
[2020-01-18 19:19] LABS: BILIRUBIN,TOTAL 0.9 MG/DL (0.2-1.0); CKMB 2.4 NG/ML (0.0-3.6); PHOSPHORUS 2.2 MG/DL (2.5-4.9)
[2020-01-18] MEDS ORDERED: Ketorolac 30mg Inj IV ONE (19:30)
--- NOTE | 2020-01-18 19:41 | NUR ---
ED Nurse Note: Spoke to Kristina BETHEA - asking for clinicals and FS to be faxed to [phone] Patient would be transferred to [facility]
--- NOTE | 2020-01-18 19:55 | Emergency Room Report ---
History of Present Illness General Chief Complaint: Diarrhea Source: Patient Present Illness HPI 64-year-old female with history of CHF, Mediterranean fever, anemia presents with chief complaint of generalized malaise and fatigue. She states that she has been on antibiotics for colitis since Sunday, but has not been improving. She is not eating well and she feels like her head keeps falling down and her eyes keeps shutting. She denies any shortness of breath, chest pain, vomiting, melena, hematochezia, hematuria, or dysuria. She states that she has been compliant with all of her CHF medications. The patient's symptoms were gradual onset, severity was moderate, duration since 3 days. Quality: Generally weak Past medical history: CHF, Mediterranean fever, anemia Past surgical history: Right knee surgery Smoking: Denies Alcohol use: Denies Drug use: Denies Review of systems: CONST: No fevers ++ chills, No night sweats PULMONARY: No productive cough, No shortness of breath CARDIAC: No chest pain, No palpitations GI: No vomiting, ++ diarrhea , No melena_or_BRBPR : No dysuria, No hematuria, No discharge NEURO: No new_focal_weakness_or_numbness, No confusion, No vision changes. Generally fatigued 14 point Review of Systems is otherwise negative except per HPI Physical Exam: GENERAL: Awake_alert_ nontoxic, no acute distress Spo2 80% on RA -normal. Pale appearing EYES: Extraocular muscles are intact. Conjunctivae clear. Lids without swelling ENT: External nose and ear normal_in_appearance. Oropharynx clear. Head_atraumatic, dry_oral_mucosa NECK: No JVD. No meningismus. No thyromegaly. Supple. Trachea midline. RESP: Normal respiratory effort. Symmetric rise. No stridor. Clear_to_auscultation_No_rales_No_wheezes CARDIAC: Regular rate and regular rhytm. No_significant pedal edema. ABDOMEN: Soft. Nondistended. Nontender_No_rebound_or_guarding. Multiple bruises to the bilateral lower quadrants. No CVA tenderness to palpation. No pelvic instability. MSK: Normal muscle tone, without rigidity. Extremities without asymmetric def ormity or swelling. SKIN: Warm and dry. No visible cyanosis or pallor NEUROLOGIC: Alert, oriented x3. Motor_and_sensation_grossly_intact. No truncal ataxia. Gait_normal Psych: Normal mood and affect, normal judgment and insight - COORDINATION OF CARE Case was discussed with: Patient , Patient's Family , Patient's Physician Any labs and imaging that were ordered were interpreted as part of the medical decision making: Medical Decision Making/Plan: Differential includes CHF, pulmonary edema, pulmonary embolism, pneumonia, pleural effusions, pneumothorax, among others. EKG is normal sinus rhythm without any obvious signs of ischemia. QT interval is mildly prolonged at 486. There is a nonspecific T wave abnormality in the lateral leads. There is lots of artifact. No STEMI CXR has findings consistent with vascular congestion from CHF. COVID negative. Initially by ambulance patient was hypotensive in the 80s. She was initially ordered NS 30 cc/kg bolus, however she declined receiving the full bolus after she was educated of the possible harmful effects of the large fluid bolus. She ended up receiving NS 1 L IV On labs, she is found to have markedly elevated BNP of 4314. She has worsening pancytopenia. Platelets today are 60, down from 69. She is not actively bleeding from anywhere. Her creatinine is also elevated from her baseline at 1.6. Calcium and magnesium are low. Magnesium was repleted. This is likely the reason why she has prolonged QT interval. Troponin is otherwise negative. CT scan of the abdomen is negative Symptoms are not likely to be due to pulmonary embolism, the patient has no significant PE risk factors and has a more likely alternate cause of their symptoms, given their chest xray findings, lung exam and presentation so workup was deferred and not pursued. The patient appears to be in decompensated CHF in exacerbation and not a suitable candidate for outpatient treatment so will be admitted for inpatient diuresis and further evaluation and treatment. Patient is capitated to [facility]. She agrees to be transferred there. The patient has been stabilized to the best of this emergency department's capabilities. Given the patient's medical needs, appropriate facilities for transfer were discussed and the decision has been made to transfer this patient to [facility]. The receiving facility has the capacity and capabilities to provide care for the patient. I spoke with Dr Huffman who accepted the patient in transfer. The patient has been informed and updated of their current clinical status. The patient has given verbal consent for the transfer. The risks and benefits were explained and the patient verbalizes their understanding. Bianca Daughter made aware [phone] Allergies: Coded Allergies: DIPHENHYDRAMINE (Verified Allergy, Severe, 05/19/15) GENERAL STIFFNESS MORPHINE (Verified Allergy, Unknown, Rash, 11/16/18) COVID-19 Screening Contact w/high risk pt: No Recent Travel to affected area: No Experienced COVID-19 symptoms?: No COVID-19 Testing performed PATIENT OFFICE REP: Yes COVID-19 Screening: PUI COVID-19 COVID-19 Testing Source: nasal Nursing Documentation-PM Past Medical History: No History, Except For Hx Cardiac Problems: Yes - CHF Hx Hypertension: Yes Hx COPD: Yes Hx Diabetes: Yes Hx Cancer: No Hx Gastrointestinal Problems: Yes - collitis, GERD Hx Neurological Problems: No Physical Exam Vital Signs Date Time Temp Pulse Resp B/P (MAP) Pulse Ox O2 Delivery O2 Flow Rate FiO2 01/18/20 17:48 99.0 66 18 122/89 (100) 94 Nasal Cannula 3.0 Sp02 EP Interpretation: reviewed, abnormal Medical Decision Making Diagnostic Impression: Primary Impression: Acute exacerbation of CHF (congestive heart failure) Additional Impressions: ELISABETH (acute kidney injury) Pancytopenia Hypocalcemia Hypomagnesemia Prolonged QT interval Anemia Dyslipidemia HTN (hypertension) Abdominal pain FMF (familial Mediterranean fever) Diarrhea EKG Diagnostic Results JESSICA Edwards 12-lead EKG (interpreted by me) Time: 1839 Indication: Rhythm analysis Tracing visualized and Interpreted by me. Rhythm: Normal sinus rhythm Rate: 67 bpm QTc: 486 Morphology: No_significant_ST_elevations_or_depressions, No STEMI Impression: Normal_sinus_rhythm_without_significant_abnormality. Prolonged QT interval. Nonspecific T wave abnormality Rhythm Strip Diag. Results Rhythm Strip Time: 19:54 EP Interpretation: yes Rate: 78 Rhythm: NSR, no PVC's, no ectopy Chest X-Ray Diagnostic Results Chest X-Ray Diagnostic Results : JESSICA Edwards Chest X-Ray: Views: 1 view(s) Indication: Fatigue Findings: Enlarged heart size, vascular congestion, interstitial edema Impression: CHF The X-ray(s) were independently viewed and interpreted contemporaneously Electronically signed by , Barbara Day DO Reevaluation Time: 19:54 Last Vital Signs Date Time Temp Pulse Resp B/P (MAP) Pulse Ox O2 Delivery O2 Flow Rate FiO2 01/18/20 17:58 99.0 68 18 122/98 94 Nasal Cannula 3.0 Status: improved Disposition: ADMITTED INPATIENT - [facility] Admit Decision Time: 19:00 Condition: Stable Referrals: NON PHYSICIAN (PCP) Barbara Day D.O. Jan 18, 2020 19:55
--- NOTE | 2020-01-18 20:24 | Diagnostic Imaging Report ---
EXAM: XR Chest, 1 View CLINICAL HISTORY: COUGH TECHNIQUE: Frontal view of the chest. COMPARISON: 04/13/2019 chest x-ray FINDINGS: Lungs: bilateral perihilar interstitial prominence. Low lung volumes. Pleural space: Unremarkable. No pneumothorax. Heart: Stable mild cardiomegaly Mediastinum: Unremarkable. Bones/joints: Unremarkable. IMPRESSION: Poor inspiration showing cardiomegaly and findings suggesting interstitial pattern pulmonary vascular congestion.
--- NOTE | 2020-01-18 20:30 | NUR ---
ED Nurse Note: Smalls catheter inserted per patients request. ERMD notified
--- NOTE | 2020-01-18 20:32 | Diagnostic Imaging Report ---
EXAM: CT Abdomen and Pelvis Without Intravenous Contrast CLINICAL HISTORY: PAIN TECHNIQUE: Axial computed tomography images of the abdomen and pelvis without intravenous contrast. CTDI is 5.5 mGy and DLP is 279.9 mGy-cm. One or more of the following dose reduction techniques were used: automated exposure control, adjustment of the mA and/or kV according to patient size, use of iterative reconstruction technique. COMPARISON: 09/26/[address] without IV contrast FINDINGS: Lung bases: Unremarkable. No mass. No consolidation. Heart: Similar pericardial effusion and mild cardiomegaly. ABDOMEN: Liver: Unremarkable. Gallbladder and bile ducts: Cholecystectomy. Pneumobilia. No ductal dilation. Pancreas: Unremarkable. No ductal dilation. Spleen: Splenomegaly Adrenals: Unremarkable. No mass. Kidneys and ureters: Atrophic kidneys. No obstructing stones. No hydronephrosis. Stomach and bowel: Unremarkable. No obstruction. No mucosal thickening. PELVIS: Appendix: No findings to suggest acute appendicitis. Bladder: Unremarkable. No stones. Reproductive: Unremarkable as visualized. ABDOMEN and PELVIS: Intraperitoneal space: Small amount of pelvic free fluid, slightly greater than before. No free air. Bones/joints: Right total hip arthroplasty No acute fracture. No dislocation. Soft tissues: Bilateral breast implants. Vasculature: Interstitial vascular congestion. No abdominal aortic aneurysm. Lymph nodes: Unremarkable. No enlarged lymph nodes. IMPRESSION: No specific cause for abdominal pain is identified on noncontrast CT with stigmata of possible cirrhosis redemonstrated.
[2020-01-18 20:43] VITALS: BP 96/64
[2020-01-18 22:00] VITALS: BP 98/72
[2020-01-18] MEDS ORDERED: HYDROcodone/Acetamin 5/325 tab ORAL ONE (23:00)
[2020-01-18] MEDS ORDERED: Tylenol #3 tab (300mg/30mg) ORAL ONE (23:00)
--- NOTE | 2020-01-18 23:10 | NUR ---
ED Nurse Note: Patient refused oral pain meds. ERMD notified
--- NOTE | 2020-01-18 23:15 | NUR ---
ED Nurse Note: [facility]
--- NOTE | 2020-01-18 23:28 | NUR ---
ER DISCHARGE NOTE: Patient is cleared to be transferred per ERMD, pt is aox4, on room air. Patient is picked up by [facility] going [facility]. Pt's packet given to ambulance personnel. pt took all belongings. Patient has bowie cath and IV access on left hand. Patient transported safely.
[2020-01-18 23:32] VITALS: BP 99/67
[2020-01-18 23:33] VITALS: BP 96/64
== END 2020-01-18 23:38 | disposition short-term general hospital (02) ==
LOC: EDBD 17:47 → EMR 18:18
DX: I11.0 Hypertensive heart disease with heart failure (principal); I50.9 Heart failure, unspecified; N17.9 Acute kidney failure, unspecified; D61.818 Other pancytopenia; E83.51 Hypocalcemia; E83.42 Hypomagnesemia; R94.31 Abnormal electrocardiogram [ECG] [EKG]; D64.9 Anemia, unspecified; M04.1 Periodic fever syndromes; R19.7 Diarrhea, unspecified; K21.9 Gastro-esophageal reflux disease without esophagitis; J44.9 Chronic obstructive pulmonary disease, unspecified; E11.9 Type 2 diabetes mellitus without complications; Z88.6 Allergy status to analgesic agent
CPT/HCPCS: 36415; 51702; 71045; 74176; 80053; 81003; 82553; 82803; 83605; 83690; 83735; 83880; 84100; 84484; 85025; 85610; 85730; 86850; 86900; 86901; 87040; 87086; 93005; 96365; 96367; 96368; J3370; J7030; J7050; U0002; Z7502; 99285